=== PATIENT | male | born 1940 | race Caucasian/White ===

== ENCOUNTER → 2017-12-14 10:16 | Outpatient (CLI) | payer MEDICARE, OTHER, SELFPAY ==
--- NOTE | 2017-12-14 | DI.RAD.S_ITS ---
PROCEDURE: XR HUMERUS LT 2V INDICATIONS: LEFT ARM PAIN/MASS MID HUMERUS TECHNIQUE: 2 views of the humerus were acquired. COMPARISON: None. FINDINGS: Bones: No fractures or dislocations. No suspicious bony lesions. Osteoarthritic changes are noted in a.c. joint and glenohumeral joint. Soft tissues: No suspicious soft tissue calcifications. IMPRESSION: Left shoulder joint osteoarthritis. Otherwise unremarkable radiographic examination of left humerus. Dictated by: Marquis Taylor M.D. on 12/14/2017 at 10:38 Approved by: Marquis Taylor M.D. on 12/14/2017 at 10:43
== END ==
PROVIDERS: Family Provider Family Medicine; PCP Family Medicine; Visit Provider Family Medicine
DX: M19.012 Primary osteoarthritis, left shoulder (principal); M79.602 Pain in left arm
CPT/HCPCS: 73060

== ENCOUNTER → 2018-01-20 13:57 | Outpatient (CLI) | payer MEDICARE, OTHER, SELFPAY ==
--- NOTE | 2018-01-20 | DI.MRI.S_ITS ---
PROCEDURE: MR SHOULDER LT WO CON INDICATIONS: LEFT SHOULDER PAIN WITH DECREASED RANGE OF MOTION TECHNIQUE: Noncontrast oblique coronal T2 fast spin echo with fat saturation, oblique sagittal T1 spin echo and T2 fast spin echo with fat saturation, axial T1 spin echo and T2 fast spin echo with fat saturation through the shoulder. COMPARISON: None. FINDINGS: Image quality: Excellent. Rotator cuff: Full-thickness tear measuring 1.0 cm in AP dimension seen involving the anterior supraspinatus tendon, sagittal image 17 series 7. There is concomitant thickening and supraspinatus tendinopathy. The infraspinatus and teres minor tendons appear intact. There is mild subscapularis tendinopathy and low-grade articular surface fraying. No definite atrophy of the rotator cuff musculature Bones and bursae: No bone marrow contusions or fractures. Severe hypertrophic acromioclavicular joint degeneration. The acromion demonstrates conventional anatomy, without an os acromiale. Small joint effusion is present Capsule and soft tissues: Circumferential labral tear involving the superior, anterior and inferior segment is present although this could be chronic/degenerative in nature. The long head of the biceps tendon demonstrates intrasubstance signal change suggesting tendinopathy. The rotator interval appears normal, without fibrosis. The coracohumeral ligament is intact although there is partial obliteration of the subcoracoid fat. The superior glenohumeral ligament appears discontinuous suggestive of rupture. Thickening/sprain of the anterior band of the inferior glenohumeral ligament also noted. No definite avulsion or complete rupture seen. IMPRESSION: Full thickness anterior supraspinatus tear. Subscapularis tendinopathy, thickening and low-grade articular surface fraying. Superior glenohumeral ligament suspected to be ruptured, which in conjunction with the supraspinatus and subscapularis pathology raises the possibility of biceps brigid instability. Please correlate clinically. Long head biceps tendinopathy. Circumferential labral tear involving the superior, anterior and inferior segments although this could be chronic/degenerative. Please correlate clinically. Sprain of the anterior band of the inferior glenohumeral ligament. Dictated by: Dean Johns M.D. on 01/20/2018 at 15:01 Approved by: Dean Johns M.D. on 01/20/2018 at 15:36
== END ==
PROVIDERS: Family Provider Family Medicine; PCP Family Medicine; Visit Provider Family Medicine
DX: M25.512 Pain in left shoulder (principal); M75.102 Unspecified rotator cuff tear or rupture of left shoulder, not specified as traumatic; S43.491A Other sprain of right shoulder joint, initial encounter
CPT/HCPCS: 73221

== ENCOUNTER → 2018-12-12 13:42 | Outpatient (CLI) | payer MEDICARE, OTHER, SELFPAY ==
--- NOTE | 2018-12-12 15:00 | DIET.PN ---
DIABETES Nutrition Initial Assessment:? ASSESS:?? 78 yom referred for type 2 diabetes. Pt presents with . States he has had elevated BG for approx 2 yrs. He has had no prior diabetes education and does not have a meter. states he has constant fatigue. They recently stopped eating starches (pastas/breads) and have been including more brown rice, fruits and vegetables. They have cut out all pitted fruit and decreased wine consumption to 1 glass per evening. ? LABS: Per pt report:? A1c: 7.8 (11/24) 7.9 (07/25) eA ? MEDS:?? metformin 1000mg BID ? DIET: Per 24-hour recall:? B: bran flakes w/ milk, yogurt, fruit L: leftovers D: protein, vegetables ? Weight: 202# BMI: 28.68 ? Exercise:? cycles 2x/wk NUTRITION DX 1. Altered Nutrition related labs related to impaired glucose metabolism, lack of previous exposure to accurate nutrition information as evidenced by pt report, dx of diabetes, previous diet high in refined carbohydrates.? INTERVENTION(s): 1. Discussed pathophysiology of diabetes. Reviewed A1c and its correlation to blood glucose numbers. Discussed recommended BG ranges. 2. Discussed importance of self-monitoring, how often, and when to check. Provided demonstration on use of glucometer. Recommended pt check with insurance for monitor that is covered. Researched inexpensive monitor with strips to begin monitoring right away. 3. Reviewed hyper/hypoglycemia and treatment. 4. Reviewed safe disposal of equipment (strip/lancets/insulin needles). 5. Discussed impact of nutrition/diet on blood sugar control.? Discussed fed versus non-fed state.?? 6. Discussed the effect of carbohydrates/protein/fat on blood sugar control.? Stressed importance of consistent carbohydrate intake at each meal and provided instructions for recommended servings/portions of carbohydrates/protein per meal. Provided pt with educational material. 7. Reviewed carbohydrate counting and measuring carbohydrate content via serving sizes and reading nutrition labels.? Provided handouts.?? 8. Discussed the difference between simple versus complex carbohydrates and the effect of fiber on blood sugar control.? Discussed various methods to increase fiber content in diet. 9. Stressed importance of meal timing and not going >4-5 hours between meals. Encouraged adding protein to each meal to support glucose control. Provided list of protein foods. Discussed best protein options for heart health and to alleviate hunger. Patient agreeable. 10. Discussed healthy weight loss through diet and exercise to increase lean muscle mass.? Pt agreeable to exercising daily alternating cardiovascular and resistance training. Discussed frequency, intensity, and time of exercise. Goal for 30 min/day at least 5d/wk. MONITOR/EVALUATE: Anticipate good compliance.? Nutrition follow up schedule for 1 mo to review BG, weight, food record and discuss calorie/protein/fat goals.
== END ==
PROVIDERS: Visit Provider Student in an Organized Health Care Education/Training Program
DX: E11.9 Type 2 diabetes mellitus without complications (principal)
CPT/HCPCS: 97802

== ENCOUNTER → 2019-02-07 14:39 | Outpatient (CLI) | payer MEDICARE, OTHER, SELFPAY ==
--- NOTE | 2019-02-07 15:05 | DIET.PN ---
Dietary Progress Note Assessment: Mr. Echeverria was seen for his first follow up for type 2 diabetes. He has been monitoring his FBG daily which appear to be trending down since our first visit. He continues to make healthier choices and exercise several times each week. He is very enthusiastic today with recent blood glucose readings and weight loss and states he feels more energy than he has in a long time. He and his continue to find new substitutions to replace favorite dishes. He had new labs drawn this morning to discuss with provider next week. WT: 190 (in office) 187 (at home) UBW: >200 Labs: A1c: 7.8 (new labs done 02/07/19) [id number] (>150 x2) Nutrition Diagnosis: Altered nutrition related lab values r/t impaired glucose metabolism aeb DX Diabetes, previous diet high in refined CHO, lack of PA. Interventions: 1. Reviewed blood sugar log and implications/reasons for elevated/decreased blood sugar.? Pt with good understanding.? 2. Reviewed carbohydrate counting and importance of consistent carbohydrate intake.? 3. Reviewed meal intake and importance of balanced meals (dustin to prevent overeating).??? 4. Provided information on fat/protein intake and ways to limit saturated fat. 5. Discussed alcohol intake and effects on BG. EER: 2000 jax ; 100g pro; 50g fat Monitoring/Evaluations: F/U scheduled for 1mo to discuss new labs.
== END ==
PROVIDERS: PCP Student in an Organized Health Care Education/Training Program; Visit Provider Student in an Organized Health Care Education/Training Program
DX: E11.9 Type 2 diabetes mellitus without complications (principal)
CPT/HCPCS: 97803

== ENCOUNTER → 2019-03-21 09:43 | Outpatient (CLI) | payer MEDICARE, OTHER, SELFPAY ==
--- NOTE | 2019-03-21 10:13 | DIET.PN ---
Dietary Progress Note Assessment: Mr. Echeverria was seen for his 2nd nutrition follow up for type 2 diabetes. He presents with new labs and is excited to report a significant drop in his A1c. He states he continues to feel better and more energetic with his continued weight loss. He and his have adopted this new way of life is a very positive manner. He reports being able to attend parties recently (which he was avoiding before) with continued management of his new patterns and BG. He has not been exercising as much lately due to weather and personal conflicts, but agrees it is important for maintaining good glucose control and weight. WT: 184 lb UBW: >200 lb Labs: A1c: 6.6 (down from 7.8) Nutrition Diagnosis: Altered nutrition related lab values r/t impaired glucose metabolism aeb DX diabetes, previous diet high in refined CHO, lack of PA. Interventions: 1. Reviewed new labs. Congratulated on consistent lifestyle changes and motivation to continue to improve. 2. Discussed importance of exercise in continued glucose and weight management. Pt agrees to start exercising minimum of 3x/wk as soon as they are settled in their new home. 3. Pt is eager to discontinue metformin. Discussed the reasons for med management. Pt with understanding. Monitoring/Evaluations: Pt scheduled for follow up labs in May. Would like to wait to resume MNT if needed at that time.
== END ==
PROVIDERS: PCP Student in an Organized Health Care Education/Training Program; Visit Provider Student in an Organized Health Care Education/Training Program
DX: E11.9 Type 2 diabetes mellitus without complications (principal); Z79.84 Long term (current) use of oral hypoglycemic drugs; Z71.3 Dietary counseling and surveillance
CPT/HCPCS: 97803

== ENCOUNTER → 2023-04-21 08:22 | Outpatient (CLI) | payer MEDICARE, OTHER, SELFPAY ==
--- NOTE | 2023-04-21 | DI.MRI.S_ITS ---
PROCEDURE: MR LUMBAR SPINE WO CON INDICATIONS: LUMBAR DISC DISEASE/LUMBAR RADICULOPATHY TECHNIQUE: Noncontrast sagittal T1 spin echo and T2 fast echo, sagittal STIR, and T2 fast spin echo through the lumbar spine. In cases with scoliosis, additional coronal T2 fast spin echo may be performed. COMPARISON: [facility], MR, L-SPINE WITHOUT CONTRAST, 10/09/2010, 16:15. [facility], MR, L-SPINE WITHOUT CONTRAST, 03/26/2015, 9:43. FINDINGS: Image quality: Excellent. Alignment and Curvature: Mild dextroconvex scoliotic curvature is seen. There is mild grade 1 anterolisthesis seen at the L4-L5 level. Associated pars defects are not seen. Bone Marrow: Marrow is of normal overall signal. No acute vertebral body compression fractures. There is a stable anterior wedge deformity seen of L1, with 20-30% loss of height anteriorly. Spinal Cord: Conus medullaris terminates at the T12-L1 level. Visualized cord demonstrates normal signal and size. Paraspinous Soft Tissues: No paravertebral masses. There is a water signal cyst seen along the posterior aspect of the right kidney. T12-L1: The disc height is well-preserved. Loss of disc signal is seen at this level. No significant neural foraminal or central canal narrowing can be seen. No significant change from the prior. L1-L2: The disc height is well-preserved. Loss of disc signal is seen at this level. Moderate disc bulge is seen, which is eccentric to the left. There is a central/left disc protrusion. Mild facet joint hypertrophy is seen. There is [id number] left-sided and moderate right-sided neural foraminal narrowing. Moderate central canal narrowing is seen. These imaging findings have progressed compared to the prior study. L2-L3: The disc height is well-preserved. Loss of disc signal is seen at this level. Mild to moderate disc bulge is seen, which is eccentric to the right. Bridging anterior osteophytes are seen. Mild facet joint hypertrophy is seen. Mild bilateral neural foraminal narrowing is seen. Minimal central canal narrowing is seen. There is slight progression compared to 2015. L3-L4: The disc height is well-preserved. Loss of disc signal is seen at this level. Moderate disc bulge is seen, which is eccentric to the right side. Moderate facet joint hypertrophy is seen. There is moderate to severe bilateral neural foraminal narrowing seen, with an associated a degree of compression seen upon the exiting nerve roots. Moderate central canal narrowing is seen. These imaging findings have progressed compared to the prior study. L4-L5: At least moderate loss of disc height and disc signal can be seen. At least moderate disc bulge is seen. There is a superimposed central disc protrusion. At least moderate facet hypertrophy is seen at this level. There is moderate to severe bilateral neural foraminal narrowing seen, with an associated a degree of compression seen upon the exiting nerve roots. At least moderate central canal narrowing is seen. These imaging findings have progressed compared to the prior study. L5-S1: The disc height is well-preserved. Loss of disc signal is seen at this level. Mild disc bulge is seen, with a central disc protrusion. There is a focal annular fissure seen posteriorly. Mild facet joint hypertrophy is seen. No neural foraminal narrowing is seen. Minimal central canal narrowing is seen. There is slight progression of degenerative change compared to the prior. IMPRESSION: Multiple levels of lumbar spine degenerative change can be seen, which are progressed at several levels compared to 2015. Mild dextroconvex scoliotic curvature is seen. Additional findings: Stable remote L1 anterior wedge deformity Water signal right renal cyst Dictated by: Paul Urban M.D. on 04/21/2023 at 12:34 Approved by: Paul Urban M.D. on 04/21/2023 at 12:40
== END ==
PROVIDERS: PCP Family Medicine; Referring Provider Family Medicine; Visit Provider Family Medicine
DX: M47.26 Other spondylosis with radiculopathy, lumbar region (principal); M47.27 Other spondylosis with radiculopathy, lumbosacral region; M51.9 Unspecified thoracic, thoracolumbar and lumbosacral intervertebral disc disorder; M43.16 Spondylolisthesis, lumbar region; M43.8X6 Other specified deforming dorsopathies, lumbar region; M41.9 Scoliosis, unspecified; N28.1 Cyst of kidney, acquired
CPT/HCPCS: 72148

== ENCOUNTER → 2023-07-15 08:48 | Outpatient (CLI) | payer MEDICARE, OTHER, SELFPAY ==
--- NOTE | 2023-07-15 08:49 | DI.RAD.S_ITS ---
PROCEDURE: XR CHEST 2V INDICATIONS: cough TECHNIQUE: 2 views of the chest were acquired. COMPARISON: [facility], CHEST 1 VIEW, 04/22/2016, 15:49. [facility], CHEST 2 VIEW, 09/01/2016, 9:59. FINDINGS: Surgical changes and devices: Median sternotomy. Lungs and pleura: Lungs are clear, aside from right upper lobe airspace opacity.. No pleural effusions or pneumothorax. Mediastinum: Mediastinal contours are normal. Heart size is normal. Bones and chest wall: No suspicious bony abnormalities. Soft tissues appear unremarkable. IMPRESSION: Right upper lobe airspace opacity consistent with atelectasis versus aspiration or pneumonia. Dictated by: Chang BUTLER Interpreted: Rubio Flores MD on 07/15/2023 at 9:25 Transcribed by: [email or web address] on 07/15/2023 at 9:26 Approved by: Rubio Flores M.D. on 07/15/2023 at 17:06
== END ==
PROVIDERS: Family Provider Family Medicine; PCP Family Medicine; Referring Provider Nurse Practitioner Family; Visit Provider Nurse Practitioner Family
DX: R05.9 Cough, unspecified (principal)
CPT/HCPCS: 71046

== ENCOUNTER 2023-10-07 09:00 | Outpatient (RCR) | payer MEDICARE, OTHER, SELFPAY ==
--- NOTE | 2023-06-27 16:45 | PT.OIE ---
Current Diagnoses Low back pain, unspecified (06/27/23) Visit Care Team Role Provider Type Binh Canas MD Family Provider Physician Primary Care Provider Specialty: Family Practice Address: [address], [place], [address] Email: [email or web address] Aidan Chin MD Attending Provider Non-Staff Referring Provider Specialty: Neurosurgery Address: [address] [facility] [address], [place], [address] Email: Physical Therapy Initial Evaluation PT-OP-A Visit Information Start: 06/27/23 13:45 Freq: Status: Active Protocol: Document 06/27/23 13:46 NM (Rec: 06/27/23 17:22 NM [id number]) Out-Patient Physical Therapy Visit Information Visit Information Visit Type Initial Evaluation Visit Note KX after 19 visits Visit Start Time 13:47 Visit Stop Time 14:33 Visit Number 1 Evaluation Information Evaluation Date 06/27/23 Precautions Precautions Ant wedge deformity (L1), Anterolisthesis L4-L5, Hx of lumbar surgery PT-OP-B Current Condition Start: 06/27/23 13:45 Freq: Status: Active Protocol: Document 06/27/23 13:46 NM (Rec: 06/27/23 17:22 NM [id number]) Current Condition History of Current Condition Onset Date summer 2022 Current Complaints pain, decreased activity History of Current Condition Pt presents with low back pain . No known RONY. He has a hx of surgery for a pinched nerve he thinks left L3-5, a decade. Surgeon and pt to try conservative care. Pt is concerned that he has arthritis. The pain has worsened throughout 2022, with difficulty performing ADLs. He reports that his pain has significantly improved over the past 2 months but continues to exist. 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 He did have minimal back pain during summer, but it gradually worsened over the fall. Pt reports prn numbness /tingling L over the course of 10 years but none currently. Reports difficulty with sleeping after 6-7 hrs (total 8-10- sleeping on R side, pillow between knees), putting on shoes. He reports that he has been moving very gingerly to prevent. He has had episodic pain about 2 senior ago when shoveling snow, pain for about 2 months. Hx of tight hamstrings; no gym since covid Prior Treatments and Tests Previous PT prior to surgery MRI 04/2023: Ant wedge deformity (L1), Anterolisthesis L4-L5, Degenerative changes Prior Functional Status Baseline Function- ADL's Independent Baseline Function- Mobility Independent Baseline Function- Gait Walk >1 hr Baseline Function- Recreation/Hobbies Bikes miles Baseline Function- Other No difficulty with dressing Current Functional Impairments (Reported) Functional Limitations- ADL's Difficulty with putting on shoes Functional Limitations- Mobility/Gait Limited 1 hr max with gait; stand 1/2 hr before painful; painful sit>stand Functional Limitations- Recreation/ Does not participate due to Hobbies fear of pain Functional Limitations- Other sleeps on R side with pillow between knees for 6-7 hrs before wakes due to pain PT-OP-C Subjective Start: 06/27/23 13:45 Freq: Status: Active Protocol: Document 06/27/23 13:46 NM (Rec: 06/27/23 17:22 NM [id number]) OP-PT Subjective Patient Comments Patient Comments see hx above for pt report Patient Questionnaires Oswestry Low Back Index Oswestry Score 18/100 OP-PT Pain Assessment Pain Assessment Grid Paper Pain Assessment Grid Completed Yes Location lumbar spine Pain Location Details B lower lumbar, sacrum Intensity 2 Scale Used Numeric (0 - 10) Description Dull,Sharp,Tightness Description- Other worse pain is 6/10; prn sharp pain with aggravation Frequency Daily Radiating Location none Pain Aggravating Factors ADL's,Activity,Standing, Bending Other Pain Aggravating Factors sit>stand, standing 1/2 hr Pain Alleviating Factors Cold,Medication,Lying Supine, Exercise Other Pain Alleviating Factors walking (an hour) Pain Behaviors Pain Behaviors Holding Area PT-OP-E Functional Tests Start: 06/27/23 13:45 Freq: Status: Active Protocol: Document 06/27/23 13:46 NM (Rec: 06/27/23 17:22 NM [id number]) Functional Tests 30 Second Sit to Stand Test Score 14 Comments reports no pain with transition to stand, increased flexed trunk PT-OP-F Manual Assessment Start: 06/27/23 13:45 Freq: Status: Active Protocol: Document 06/27/23 13:46 NM (Rec: 06/27/23 17:22 NM [id number]) Manual Assessments Soft Tissue Assessment Soft Tissue Mobility Assessment Bilateral hamstring tightness. Increased tone of lumbar paraspinals, L>R Joint Mobility Assessment Joint Mobility Assessment Hypomobility of thoracic and lumbar spine with P-A springing of spinous processes . Decreased hip ER/IR bilaterally in sitting and supine. Unable to placed L ankle over R knee (e.g. to put on shoes) PT-OP-G Mobility & Gait Start: 06/27/23 13:45 Freq: Status: Active Protocol: Document 06/27/23 13:46 NM (Rec: 06/27/23 17:22 NM [id number]) OP Gait Assessment Gait Gait Assistance Required: Independent Distance (Feet) 200 Assistive Devices Assistive Device None Gait Deviations General Gait Pattern Antalgic,Flexed Trunk,Wide Based Gait Factors Limiting Gait Function Factors Limiting Gait Function Decreased Sensation,Decreased Strength,Poor Balance Comments Gait Comments Decreased trunk rotation with gait, B external rotation of feet, flexed trunk posture; wider FREDY PT-OP-H Neuro Start: 06/27/23 13:45 Freq: Status: Active Protocol: Document 06/27/23 13:46 NM (Rec: 06/27/23 17:22 NM [id number]) Sensation Evaluation Gross Sensation Gross Sensation Left LE Impaired,Right LE Impaired Comments Summary Comments Decreased light touch sensation along dorsal and plantar surfaces of feet; other BLE dermatomes intact PT-OP-J Posture/Palpation/Skin Start: 06/27/23 13:45 Freq: Status: Active Protocol: Document 06/27/23 13:46 NM (Rec: 06/27/23 17:22 NM [id number]) Posture Evaluation Position Standing Evaluation View posterior, lateral Head/C-Spine Posture Forward Head L-Spine Posture Fixed Scoliosis on (R) Shoulder Posture (L) Rounded,(R) Rounded,(L) Elevated Arm Posture (L) Internally Rotated,(R) Internally Rotated Pelvis Posture Anteriorly Tilted,(R) Iliac Crest Superior Weight Distribution Balanced Hip Posture (L) Externally Rotated,(R) Externally Rotated Knee Posture (L) Genu Varus,(R) Genu Varus Patellar Posture (L) Superior,(R) Superior Ankle/Foot Posture (L) Neutral,(R) Neutral Comments Posture Comments Dextroscoliosis lumbar spine Palpation Assessment Location lumbar spine Palpation Location paraspinals, glutes, QL, L1-L5 spinous processes, PSIS, SIJ Palpation Findings Soft Tissue Tightness Palpation Details Tenderness along B PSIS, L>R. No tenderness along spinous or transverse processes of L spine. No tenderness of B SIJ. No tenderness of glutes, hip external rotators, greater trochanter, proximal hamstrings. Increased soft tissue tightness of lumbar paraspinals, QL PT-OP-K Range of Motion Start: 06/27/23 13:45 Freq: Status: Active Protocol: Document 06/27/23 13:46 NM (Rec: 06/27/23 17:22 NM [id number]) Lumbar Spine Range of Motion Lumbar Spine Active Percentage Testing Position Standing Flexion 50 Extension 50 Rotation Left 3 Rotation Right 3 Lateral Flexion Left 50 Lateral Flexion Right 50 ROM Limitations Soft Tissue Tightness,Pain Comments Reports minimal pain/pulling with spinal extension. No pain with rotation or flexion. Demos decreased hamstring length with flexion (to knees) and lateral flexion (to mid lateral thigh) Hip Goniometric Range of Motion Hip right Flexion w/Knee Flexed 110 Straight Leg Raise 80 Internal Rotation 15 External Rotation 25 Comments Hamstring length: 140 deg left Testing Position Supine Flexion w/Knee Flexed 112 Straight Leg Raise 70 Internal Rotation 20 External Rotation 15 Comments Hamstring length: 150 deg; pt reports feels more restricted PT-OP-L Special Tests Start: 06/27/23 13:45 Freq: Status: Active Protocol: Document 06/27/23 13:46 NM (Rec: 06/27/23 17:22 NM [id number]) Special Tests Lumbar Spine Special Tests SIJ Thigh thrust Test Results - SIJ Anterior gapping Test Results - Distraction Test Results + Comments reports relief Pierre/Quadrant Test Results - Comments no local or referred pain with 3D testing Straight Leg Raise Test Results + Slump Test Results + Comments improved with head ext Hip Special Tests NGA Test Results - Comments Unable to perform fully due to ROM limitations on LLE FADIR Test Results - PT-OP-M Strength Start: 06/27/23 13:45 Freq: Status: Active Protocol: Document 06/27/23 13:46 NM (Rec: 06/27/23 17:22 NM [id number]) Trunk Strength Trunk Manual Muscle Testing Testing Position Sitting Flexion 4 Good Extension 4 Good Rotation Left 3+ Fair+ Rotation Right 3+ Fair+ Lateral Flexion Left 3+ Fair+ Lateral Flexion Right 3+ Fair+ Comments No pain with resisted testing. Decreased ability to stabilize against frontal plane resistance Hip Strength Hip Manual Muscle Testing Right Flexion (L2) 4 Good Extension (S1) 4- Good- Abduction 4 Good Adduction 4 Good External Rotation 4- Good- Internal Rotation 4- Good- Comments Low back pain only with resisted extension Left Flexion (L2) 4 Good Extension (S1) 3+ Fair+ Abduction 4 Good Adduction 4 Good External Rotation 4- Good- Internal Rotation 4- Good- Comments Low back pain only with resisted extension Knee Strength Knee Manual Muscle Testing Right Flexion (S2) 4 Good Extension (L3) 4 Good Left Flexion (S2) 4 Good Extension (L3) 4 Good Ankle/Foot Strength Ankle and Foot Manual Muscle Testing Right Dorsiflexion (L4) 4 Good Plantarflexion (S1) 4 Good Left Dorsiflexion (L4) 4 Good Plantarflexion (S1) 4 Good PT-OP-Q Treatments Start: 06/27/23 13:45 Freq: Status: Active Protocol: Document 06/27/23 13:46 NM (Rec: 06/27/23 17:22 NM [id number]) Self-Care/Home Management Treatment Education Patient Education Body Mechanics,Home Exercise Program,Joint Protection,Pain Management,Posture Other Education 8 minutes: Educated on sleep position and posture to maintain open facet joints for pain reduction(no handout given, pt demonstrating while PT educating) with spine models, arthrokinematics. Encouraged to try sleeping on back with legs elevated for spinal distraction after pt can no longer sleep in sidelying due to discomfort in lumbar spine. PT and pt discussed exam findings, POC, modalities for pain relief prn . Educated pt on daily ambulation program x30 min/ea day up to pt tolerance to initiate activity; will initiate HEP next session, but educated on purpose and importance of HEP. Initiated discussion on safety and limiting fall risk during daily walks due to pt report of poor balance. Pt verbalizing agreement PT-OP-T Assessment and Plan Start: 06/27/23 13:45 Freq: Status: Active Protocol: Document 06/27/23 13:46 NM (Rec: 06/27/23 17:22 NM [id number]) Physical Therapy Assessment Rehab Potential Rehabilitation Potential Good Evaluation Complexity Number of Personal Factors/Comorbidities 1-2 Number of Body Systems Impaired 1-2 Clinical Presentation at Evaluation Stable Impairments Impairments Activity Tolerance,Balance, Functional Activities, Functional Mobility,Gait,Pain, Posture,ROM,Sensation,Soft Tissue Mobility,Strength Goals Five Impairment activity tolerance Impairment Pt w/o HEP Short Term Goal (STG) Pt will report compliance with HEP 2-3/wk in order to demonstrate independence and management of symptoms for return to activity STG Duration 4 weeks Jail Goal (LTG) Pt will report compliance with HEP 3x/wk to demonstrate ability to participate in independent exercise for maintenance program after discharge from PT LTG Duration 8 weeks Four Impairment AROM, ADLs Impairment unable to put on L shoe [employer] Goal (LTG) Pt will report that he is able to put on his L shoe in sitting without compensation or reports of low back pain in order to demonstrate improved ability to participate in dressing ADLs LTG Duration 8 weeks Three Impairment hip IR Impairment R hip IR 15 deg Short Term Goal (STG) Pt will increase R hip IR to at least 20 deg in order to demonstrate improved hip mobility STG Duration 4 weeks Jail Goal (LTG) Pt will increase R hip IR to at least 25 deg in order to demonstrate improved hip mobility LTG Duration 8 weeks Two Impairment hip ER Impairment L ER AROM 15 deg Short Term Goal (STG) Pt will improve L ER AROM to at least 20 deg in order to demonstrate increased hip mobility to put on his shoes STG Duration 4 weeks Jail Goal (LTG) Pt will improve L ER AROM to at least 25 deg in order to demonstrate increased hip mobility to put on his shoes LTG Duration 8 weeks One Impairment hamstring length Impairment R hamstring length 140 deg, L hamstring length 150 deg Short Term Goal (STG) Pt will improve B hamstring length by at least 5 deg ea for improved TKE during gait and to improve overall spinal/ hip mobility for improved activity tolerance STG Duration 4 weeks Jail Goal (LTG) Pt will improve B hamstring length by at least 10 deg ea for improved TKE during gait and to improve overall spinal/ hip mobility for improved activity tolerance LTG Duration 8 weeks Assessment Summary Assessment Pt is a 82 y.o. male presenting with lumbar spine pain beginning in fall 2022 and gradually worsening. Pt reports improvement in pain levels since 2023 began, but reports that his activity levels are significantly limited due to fear of movement and pain. 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 He is currently limited in the amount that he is able to ambulate and stand before pain. Pt has decreased lumbar spine AROM in all directions, although only reports minimal pain with extension. He demos decreased trunk strength with difficulty stabilizing against resistance, but without pain. He has limitations in bilateral hip ER/IR AROM and PROM, in addition to decreased bilateral hamstring length which likely factors into his decreased AROM. Due to soft tissue and mobility limitations, pt has difficulty with performing dressing ADLs . Pt is positive for slump and straight leg raise tests, although does not have any current symptoms of nerve pain ; likely related to hamstring length. No facet provocation with 3D testing. Reports improvement in symptoms with lumbar distraction. Pt demonstrates increased soft tissue restrictions of his B paraspinals and has muscle guarding. 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 PT educated pt on sleep position in supine with BLE elevated as pt finds distraction helpful; further educated on exam findings, POC , and initiation of daily ambulation program to increase activity levels. Pt verbalizes understanding. Pt would benefit from progressive BLE and trunk resistance training, gait and balance training, in addition to core stabilization and flexibility/ mobility and an exercise program in order to decrease pain symptoms, improve activity tolerance, and QOL. Physical Therapy Plan Frequency and Duration Frequency of Treatment 2x/Week Duration of treatment (weeks) 8 Plan of Care Start Date 06/27/23 Plan of Care End Date 08/26/23 Therapeutic Interventions Therapeutic Interventions Aquatic Therapy,Balance Training,Coordination Training ,Gait Training,Home Exercise Program,Joint Mobilizations, Manual Therapy,Neuromuscular Re-education,Orthotic/ Prosthetic Management,Patient/ Caregiver Education,Self-Care/ Home Management,Sensory Integration,Soft Tissue Mobilization,Taping, Therapeutic Activities, Therapeutic Exercises Modalities Biofeedback,Cold Pack/Ice Massage,Electric Stimulation, Hot Packs,Traction- Mechanical ,Ultrasound,Vasopneumatic Devices Other Therapeutic Interventions Manual traction, self traction Next Visit Focus/Plan Next Note Type Treatment Note Next Visit Plan lumbar spine/hip stretching ( knee to chest, ER, IR, HS), initiated mobility (uvaldo pose with IR bias, lateral tilts) strengthening Initiate daily foot checks, est HEP/daily exercise and walking program Precautions: no excessive spinal flexion due to anterolisthesis, grade III mob max, limit end range ext
--- NOTE | 2023-06-29 16:46 | PT.OTN ---
Current Diagnoses Low back pain, unspecified (06/29/23) Unspecified abnormalities of gait and mobility (06/29/23) Weakness (06/29/23) Physical Therapy Treatment Note PT-OP-A Visit Information Start: 06/27/23 13:45 Freq: Status: Active Protocol: Document 06/29/23 13:02 NM (Rec: 06/29/23 13:46 NM [id number]) Out-Patient Physical Therapy Visit Information Visit Information Visit Type Treatment Note Visit Note KX after 19 visits Visit Start Time 13:02 Visit Stop Time 13:45 Visit Number 2 Evaluation Information Evaluation Date 06/27/23 PT-OP-B Current Condition Start: 06/27/23 13:45 Freq: Status: Active Protocol: Document 06/27/23 13:46 NM (Rec: 06/27/23 17:22 NM [id number]) Current Condition History of Current Condition Onset Date summer 2022 Current Complaints pain, decreased activity History of Current Condition Pt presents with low back pain . No known RONY. He has a hx of surgery for a pinched nerve he thinks left L3-5, a decade. Surgeon and pt to try conservative care. Pt is concerned that he has arthritis. The pain has worsened throughout 2022, with difficulty performing ADLs. He reports that his pain has significantly improved over the past 2 months but continues to exist. 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 He did have minimal back pain during summer, but it gradually worsened over the fall. Pt reports prn numbness /tingling L over the course of 10 years but none currently. Reports difficulty with sleeping after 6-7 hrs (total 8-10- sleeping on R side, pillow between knees), putting on shoes. He reports that he has been moving very gingerly to prevent. He has had episodic pain about 2 senior ago when shoveling snow, pain for about 2 months. Hx of tight hamstrings; no gym since covid Prior Treatments and Tests Previous PT prior to surgery MRI 04/2023: Ant wedge deformity (L1), Anterolisthesis L4-L5, Degenerative changes Prior Functional Status Baseline Function- ADL's Independent Baseline Function- Mobility Independent Baseline Function- Gait Walk >1 hr Baseline Function- Recreation/Hobbies Bikes miles Baseline Function- Other No difficulty with dressing Current Functional Impairments (Reported) Functional Limitations- ADL's Difficulty with putting on shoes Functional Limitations- Mobility/Gait Limited 1 hr max with gait; stand 1/2 hr before painful; painful sit>stand Functional Limitations- Recreation/ Does not participate due to Hobbies fear of pain Functional Limitations- Other sleeps on R side with pillow between knees for 6-7 hrs before wakes due to pain PT-OP-C Subjective Start: 06/27/23 13:45 Freq: Status: Active Protocol: Document 06/29/23 13:02 NM (Rec: 06/29/23 13:50 NM [id number]) OP-PT Subjective Patient Comments Patient Comments Reports no change from evaluation. States he has low back tightness with 2/10 pain. Walked for 1 hr yesterday and 1.5 hr today. PT-OP-E Functional Tests Start: 06/27/23 13:45 Freq: Status: Active Protocol: Document 06/27/23 13:46 NM (Rec: 06/27/23 17:22 NM [id number]) Functional Tests 30 Second Sit to Stand Test Score 14 Comments reports no pain with transition to stand, increased flexed trunk PT-OP-F Manual Assessment Start: 06/27/23 13:45 Freq: Status: Active Protocol: Document 06/27/23 13:46 NM (Rec: 06/27/23 17:22 NM [id number]) Manual Assessments Soft Tissue Assessment Soft Tissue Mobility Assessment Bilateral hamstring tightness. Increased tone of lumbar paraspinals, L>R Joint Mobility Assessment Joint Mobility Assessment Hypomobility of thoracic and lumbar spine with P-A springing of spinous processes . Decreased hip ER/IR bilaterally in sitting and supine. Unable to placed L ankle over R knee (e.g. to put on shoes) PT-OP-G Mobility & Gait Start: 06/27/23 13:45 Freq: Status: Active Protocol: Document 06/27/23 13:46 NM (Rec: 06/27/23 17:22 NM [id number]) OP Gait Assessment Gait Gait Assistance Required: Independent Distance (Feet) 200 Assistive Devices Assistive Device None Gait Deviations General Gait Pattern Antalgic,Flexed Trunk,Wide Based Gait Factors Limiting Gait Function Factors Limiting Gait Function Decreased Sensation,Decreased Strength,Poor Balance Comments Gait Comments Decreased trunk rotation with gait, B external rotation of feet, flexed trunk posture; wider FREDY PT-OP-H Neuro Start: 06/27/23 13:45 Freq: Status: Active Protocol: Document 06/27/23 13:46 NM (Rec: 06/27/23 17:22 NM [id number]) Sensation Evaluation Gross Sensation Gross Sensation Left LE Impaired,Right LE Impaired Comments Summary Comments Decreased light touch sensation along dorsal and plantar surfaces of feet; other BLE dermatomes intact PT-OP-J Posture/Palpation/Skin Start: 06/27/23 13:45 Freq: Status: Active Protocol: Document 06/27/23 13:46 NM (Rec: 06/27/23 17:22 NM [id number]) Posture Evaluation Position Standing Evaluation View posterior, lateral Head/C-Spine Posture Forward Head L-Spine Posture Fixed Scoliosis on (R) Shoulder Posture (L) Rounded,(R) Rounded,(L) Elevated Arm Posture (L) Internally Rotated,(R) Internally Rotated Pelvis Posture Anteriorly Tilted,(R) Iliac Crest Superior Weight Distribution Balanced Hip Posture (L) Externally Rotated,(R) Externally Rotated Knee Posture (L) Genu Varus,(R) Genu Varus Patellar Posture (L) Superior,(R) Superior Ankle/Foot Posture (L) Neutral,(R) Neutral Comments Posture Comments Dextroscoliosis lumbar spine Palpation Assessment Location lumbar spine Palpation Location paraspinals, glutes, QL, L1-L5 spinous processes, PSIS, SIJ Palpation Findings Soft Tissue Tightness Palpation Details Tenderness along B PSIS, L>R. No tenderness along spinous or transverse processes of L spine. No tenderness of B SIJ. No tenderness of glutes, hip external rotators, greater trochanter, proximal hamstrings. Increased soft tissue tightness of lumbar paraspinals, QL PT-OP-K Range of Motion Start: 06/27/23 13:45 Freq: Status: Active Protocol: Document 06/27/23 13:46 NM (Rec: 06/27/23 17:22 NM [id number]) Lumbar Spine Range of Motion Lumbar Spine Active Percentage Testing Position Standing Flexion 50 Extension 50 Rotation Left 3 Rotation Right 3 Lateral Flexion Left 50 Lateral Flexion Right 50 ROM Limitations Soft Tissue Tightness,Pain Comments Reports minimal pain/pulling with spinal extension. No pain with rotation or flexion. Demos decreased hamstring length with flexion (to knees) and lateral flexion (to mid lateral thigh) Hip Goniometric Range of Motion Hip right Flexion w/Knee Flexed 110 Straight Leg Raise 80 Internal Rotation 15 External Rotation 25 Comments Hamstring length: 140 deg left Testing Position Supine Flexion w/Knee Flexed 112 Straight Leg Raise 70 Internal Rotation 20 External Rotation 15 Comments Hamstring length: 150 deg; pt reports feels more restricted PT-OP-L Special Tests Start: 06/27/23 13:45 Freq: Status: Active Protocol: Document 06/27/23 13:46 NM (Rec: 06/27/23 17:22 NM [id number]) Special Tests Lumbar Spine Special Tests SIJ Thigh thrust Test Results - SIJ Anterior gapping Test Results - Distraction Test Results + Comments reports relief Pierre/Quadrant Test Results - Comments no local or referred pain with 3D testing Straight Leg Raise Test Results + Slump Test Results + Comments improved with head ext Hip Special Tests NGA Test Results - Comments Unable to perform fully due to ROM limitations on LLE FADIR Test Results - PT-OP-M Strength Start: 06/27/23 13:45 Freq: Status: Active Protocol: Document 06/27/23 13:46 NM (Rec: 06/27/23 17:22 NM [id number]) Trunk Strength Trunk Manual Muscle Testing Testing Position Sitting Flexion 4 Good Extension 4 Good Rotation Left 3+ Fair+ Rotation Right 3+ Fair+ Lateral Flexion Left 3+ Fair+ Lateral Flexion Right 3+ Fair+ Comments No pain with resisted testing. Decreased ability to stabilize against frontal plane resistance Hip Strength Hip Manual Muscle Testing Right Flexion (L2) 4 Good Extension (S1) 4- Good- Abduction 4 Good Adduction 4 Good External Rotation 4- Good- Internal Rotation 4- Good- Comments Low back pain only with resisted extension Left Flexion (L2) 4 Good Extension (S1) 3+ Fair+ Abduction 4 Good Adduction 4 Good External Rotation 4- Good- Internal Rotation 4- Good- Comments Low back pain only with resisted extension Knee Strength Knee Manual Muscle Testing Right Flexion (S2) 4 Good Extension (L3) 4 Good Left Flexion (S2) 4 Good Extension (L3) 4 Good Ankle/Foot Strength Ankle and Foot Manual Muscle Testing Right Dorsiflexion (L4) 4 Good Plantarflexion (S1) 4 Good Left Dorsiflexion (L4) 4 Good Plantarflexion (S1) 4 Good PT-OP-Q Treatments Start: 06/27/23 13:45 Freq: Status: Active Protocol: Document 06/29/23 13:02 NM (Rec: 06/29/23 13:46 NM [id number]) Therapeutic Exercises Supine Exercises posterior pelvic tilt Side bilateral Reps/Minutes 1x10 Comments cued for return to neutral spine vs ant tilt TA activation Supine Exercise Name 1. abdominal draw in (HEP), 2. B july lift/lower, 3. july single leg Equipment Used PT tactile cues at core, verbal cues to cough and mimic contraction Reps/Minutes 1. 1x10 with brief hold, 2. 1x10 with brief sec hold, 3. 1x5 ea w 1 hold Comments cued for breathing, draw up/in , control during motion, reports no pain sciatic nerve glide Supine Exercise Name with dynamic hamstring stretch (HEP nerve glide) Side bilateral Reps/Minutes 1x10 with 10 hold Comments tingling RLE, but decreased with knee flex/ext dynamic piriformis stretch Supine Exercise Name 1. figure 4 with knee bent ( not to chest)- HEP, 2. hip IR stretch Side bilateral Reps/Minutes 2x30 ea Comments reports tightness in back and hip ERs; cued for form knee to chest Supine Exercise Name lumbar spine stretch Side bilateral Reps/Minutes 1x60 Comments reports good lumbar spine stretch, no pain Prone Exercises child's pose Prone Exercise Name trialed with lateral flexion for paraspinal stretch Side bilateral Comments reports does not feel stretch, so trialed in standing Standing Exercises lateral flexion paraspinal stretch Standing Exercise Name trialed in standing Side bilateral Equipment Used hand on wall, leg cross behind Reps/Minutes 1x60 ea Comments cued for form; reports stretch but not pain Other Exercises soft tissue mobilization Other Exercise Name paraspinals, QL; added to HEP Side bilateral Reps/Minutes 2 ea side Comments reports feels good Therapeutic Activity Therapeutic Activity hip hinge Name body mechanics training Reps/Minutes 8 minutes Comments Educated on hip hinge in sitting position. Pt self tactile cues with hands on ASIS for hip hinge, cued bring fingers to femurs. PT initially providing manual cues at hips, then verbal cues only for form, scapular retraction, and abdominal bracing. Cued for slower, controlled motion to eliminate initiation using only lumbar spine Trialed in standing but did not progress to standing due to difficulty with coordinating hip hinge Self-Care/Home Management Treatment Education Patient Education Home Exercise Program,Pain Management Other Education 5 minutes: Educated on heat with soft tissue mobilization for pain relief, difference between nerve and muscle tension with model (e.g. stretch vs mobilize). Initiated HEP and educated on purpose of HEP. HEP: TA activation, figure 4 stretch, sciatic nerve glide, lumbar paraspinal soft tissue mobilization PT-OP-T Assessment and Plan Start: 06/27/23 13:45 Freq: Status: Active Protocol: Document 06/29/23 13:02 NM (Rec: 06/29/23 13:46 NM [id number]) Physical Therapy Assessment Goals Five Impairment activity tolerance Impairment Pt w/o HEP Short Term Goal (STG) Pt will report compliance with HEP 2-3/wk in order to demonstrate independence and management of symptoms for return to activity STG Duration 4 weeks Half-Way Goal (LTG) Pt will report compliance with HEP 3x/wk to demonstrate ability to participate in independent exercise for maintenance program after discharge from PT LTG Duration 8 weeks Four Impairment AROM, ADLs Impairment unable to put on L shoe Half-Way Goal (LTG) Pt will report that he is able to put on his L shoe in sitting without compensation or reports of low back pain in order to demonstrate improved ability to participate in dressing ADLs LTG Duration 8 weeks Three Impairment hip IR Impairment R hip IR 15 deg Short Term Goal (STG) Pt will increase R hip IR to at least 20 deg in order to demonstrate improved hip mobility STG Duration 4 weeks Half-Way Goal (LTG) Pt will increase R hip IR to at least 25 deg in order to demonstrate improved hip mobility LTG Duration 8 weeks Two Impairment hip ER Impairment L ER AROM 15 deg Short Term Goal (STG) Pt will improve L ER AROM to at least 20 deg in order to demonstrate increased hip mobility to put on his shoes STG Duration 4 weeks Half-Way Goal (LTG) Pt will improve L ER AROM to at least 25 deg in order to demonstrate increased hip mobility to put on his shoes LTG Duration 8 weeks One Impairment hamstring length Impairment R hamstring length 140 deg, L hamstring length 150 deg Short Term Goal (STG) Pt will improve B hamstring length by at least 5 deg ea for improved TKE during gait and to improve overall spinal/ hip mobility for improved activity tolerance STG Duration 4 weeks Hem Marker Goal (LTG) Pt will improve B hamstring length by at least 10 deg ea for improved TKE during gait and to improve overall spinal/ hip mobility for improved activity tolerance LTG Duration 8 weeks Assessment Summary Assessment Pt tolerated well without any increased pain. Initiated hip and lumbar spine stretches to promote improved flexibility and decrease soft tissue restrictions. Pt has limited hip mobility on LLE dustin into ER, so challenged with figure 4 stretch. PT educated pt on hip hinge as part of body mechanics training and initiated in session in seated ; unable to progress to standing as pt has difficulty coordinating. PT provided verbal and tactile cues to assist pt in correct mechanics ; will re-trial in future sessions. Initiated in sciatic nerve mobilization with dynamic hamstring stretch to decrease tingling sensation in LLE; pt reports improvement in symptoms post-mobilization. PT educated pt on difference between muscle and nerve tension. Initiated abdominal drawing in maneuver and TA activation with marching to begin deep core stabilization. PT provided tactile and verbal cues for execution and breathing; able to coordinate with difficulty but would benefit from further review in future sessions. Educated on modalities for pain relief ( heat) and soft tissue mobilization. Pt would benefit from skilled PT for further hip and spine mobility, stabilization/strengthening, and body mechanics training to decrease pain symptoms and improve QOL. Physical Therapy Plan Frequency and Duration Frequency of Treatment 2x/Week Duration of treatment (weeks) 8 Plan of Care Start Date 06/27/23 Plan of Care End Date 08/26/23 Therapeutic Interventions Therapeutic Interventions Aquatic Therapy,Balance Training,Coordination Training ,Gait Training,Home Exercise Program,Joint Mobilizations, Manual Therapy,Neuromuscular Re-education,Orthotic/ Prosthetic Management,Patient/ Caregiver Education,Self-Care/ Home Management,Sensory Integration,Soft Tissue Mobilization,Taping, Therapeutic Activities, Therapeutic Exercises Modalities Biofeedback,Cold Pack/Ice Massage,Electric Stimulation, Hot Packs,Traction- Mechanical ,Ultrasound,Vasopneumatic Devices Other Therapeutic Interventions Manual traction, self traction Next Visit Focus/Plan Next Note Type Treatment Note Next Visit Plan Next session: manual tx to LS paraspinals, glutes; check tolerance to stretches, HEP, STM Continue lumbar spine/hip stretching (knee to chest, ER, IR, HS), initiated mobility ( uvlado pose with IR bias, lateral tilts) strengthening Initiate daily foot checks, est HEP/daily exercise and walking program Precautions: no excessive spinal flexion due to anterolisthesis, grade III mob max, limit end range ext
--- NOTE | 2023-07-04 14:36 | PT.OTN ---
Current Diagnoses Low back pain, unspecified (07/04/23) Unspecified abnormalities of gait and mobility (07/04/23) Weakness (07/04/23) Physical Therapy Treatment Note PT-OP-A Visit Information Start: 06/27/23 13:45 Freq: Status: Active Protocol: Document 07/04/23 13:56 SP (Rec: 07/04/23 14:42 SP [id number]) Out-Patient Physical Therapy Visit Information Visit Information Visit Type Treatment Note Visit Note KX after 19 visits Visit Start Time 13:56 Visit Stop Time 14:36 Visit Number 3 Number of ART MODEL Visits 1 Evaluation Information Evaluation Date 06/27/23 Precautions Precautions Ant wedge deformity (L1), Anterolisthesis L4-L5, Hx of lumbar surgery PT-OP-B Current Condition Start: 06/27/23 13:45 Freq: Status: Active Protocol: Document 06/27/23 13:46 NM (Rec: 06/27/23 17:22 NM [id number]) Current Condition History of Current Condition Onset Date summer 2022 Current Complaints pain, decreased activity History of Current Condition Pt presents with low back pain . No known RONY. He has a hx of surgery for a pinched nerve he thinks left L3-5, a decade. Surgeon and pt to try conservative care. Pt is concerned that he has arthritis. The pain has worsened throughout 2022, with difficulty performing ADLs. He reports that his pain has significantly improved over the past 2 months but continues to exist. 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 He did have minimal back pain during summer, but it gradually worsened over the fall. Pt reports prn numbness /tingling L over the course of 10 years but none currently. Reports difficulty with sleeping after 6-7 hrs (total 8-10- sleeping on R side, pillow between knees), putting on shoes. He reports that he has been moving very gingerly to prevent. He has had episodic pain about 2 senior ago when shoveling snow, pain for about 2 months. Hx of tight hamstrings; no gym since covid Prior Treatments and Tests Previous PT prior to surgery MRI 04/2023: Ant wedge deformity (L1), Anterolisthesis L4-L5, Degenerative changes Prior Functional Status Baseline Function- ADL's Independent Baseline Function- Mobility Independent Baseline Function- Gait Walk >1 hr Baseline Function- Recreation/Hobbies Bikes miles Baseline Function- Other No difficulty with dressing Current Functional Impairments (Reported) Functional Limitations- ADL's Difficulty with putting on shoes Functional Limitations- Mobility/Gait Limited 1 hr max with gait; stand 1/2 hr before painful; painful sit>stand Functional Limitations- Recreation/ Does not participate due to Hobbies fear of pain Functional Limitations- Other sleeps on R side with pillow between knees for 6-7 hrs before wakes due to pain PT-OP-C Subjective Start: 06/27/23 13:45 Freq: Status: Active Protocol: Document 07/04/23 13:56 SP (Rec: 07/04/23 14:42 SP [id number]) OP-PT Subjective Patient Comments Patient Comments Pt reports seeing improvement, compliant with HEP. CAn put shoes and socks on now without pain, couldn't do before PT. Walks about 1 hr on [employer] trails uneven incline/decline some surfaces without trek poles. Still having soreness in R gluteal region. PT-OP-E Functional Tests Start: 06/27/23 13:45 Freq: Status: Active Protocol: Document 06/27/23 13:46 NM (Rec: 06/27/23 17:22 NM [id number]) Functional Tests 30 Second Sit to Stand Test Score 14 Comments reports no pain with transition to stand, increased flexed trunk PT-OP-F Manual Assessment Start: 06/27/23 13:45 Freq: Status: Active Protocol: Document 06/27/23 13:46 NM (Rec: 06/27/23 17:22 NM [id number]) Manual Assessments Soft Tissue Assessment Soft Tissue Mobility Assessment Bilateral hamstring tightness. Increased tone of lumbar paraspinals, L>R Joint Mobility Assessment Joint Mobility Assessment Hypomobility of thoracic and lumbar spine with P-A springing of spinous processes . Decreased hip ER/IR bilaterally in sitting and supine. Unable to placed L ankle over R knee (e.g. to put on shoes) PT-OP-G Mobility & Gait Start: 06/27/23 13:45 Freq: Status: Active Protocol: Document 06/27/23 13:46 NM (Rec: 06/27/23 17:22 NM [id number]) OP Gait Assessment Gait Gait Assistance Required: Independent Distance (Feet) 200 Assistive Devices Assistive Device None Gait Deviations General Gait Pattern Antalgic,Flexed Trunk,Wide Based Gait Factors Limiting Gait Function Factors Limiting Gait Function Decreased Sensation,Decreased Strength,Poor Balance Comments Gait Comments Decreased trunk rotation with gait, B external rotation of feet, flexed trunk posture; wider FREDY PT-OP-H Neuro Start: 06/27/23 13:45 Freq: Status: Active Protocol: Document 06/27/23 13:46 NM (Rec: 06/27/23 17:22 NM [id number]) Sensation Evaluation Gross Sensation Gross Sensation Left LE Impaired,Right LE Impaired Comments Summary Comments Decreased light touch sensation along dorsal and plantar surfaces of feet; other BLE dermatomes intact PT-OP-J Posture/Palpation/Skin Start: 06/27/23 13:45 Freq: Status: Active Protocol: Document 06/27/23 13:46 NM (Rec: 06/27/23 17:22 NM [id number]) Posture Evaluation Position Standing Evaluation View posterior, lateral Head/C-Spine Posture Forward Head L-Spine Posture Fixed Scoliosis on (R) Shoulder Posture (L) Rounded,(R) Rounded,(L) Elevated Arm Posture (L) Internally Rotated,(R) Internally Rotated Pelvis Posture Anteriorly Tilted,(R) Iliac Crest Superior Weight Distribution Balanced Hip Posture (L) Externally Rotated,(R) Externally Rotated Knee Posture (L) Genu Varus,(R) Genu Varus Patellar Posture (L) Superior,(R) Superior Ankle/Foot Posture (L) Neutral,(R) Neutral Comments Posture Comments Dextroscoliosis lumbar spine Palpation Assessment Location lumbar spine Palpation Location paraspinals, glutes, QL, L1-L5 spinous processes, PSIS, SIJ Palpation Findings Soft Tissue Tightness Palpation Details Tenderness along B PSIS, L>R. No tenderness along spinous or transverse processes of L spine. No tenderness of B SIJ. No tenderness of glutes, hip external rotators, greater trochanter, proximal hamstrings. Increased soft tissue tightness of lumbar paraspinals, QL PT-OP-K Range of Motion Start: 06/27/23 13:45 Freq: Status: Active Protocol: Document 06/27/23 13:46 NM (Rec: 06/27/23 17:22 NM [id number]) Lumbar Spine Range of Motion Lumbar Spine Active Percentage Testing Position Standing Flexion 50 Extension 50 Rotation Left 3 Rotation Right 3 Lateral Flexion Left 50 Lateral Flexion Right 50 ROM Limitations Soft Tissue Tightness,Pain Comments Reports minimal pain/pulling with spinal extension. No pain with rotation or flexion. Demos decreased hamstring length with flexion (to knees) and lateral flexion (to mid lateral thigh) Hip Goniometric Range of Motion Hip right Flexion w/Knee Flexed 110 Straight Leg Raise 80 Internal Rotation 15 External Rotation 25 Comments Hamstring length: 140 deg left Testing Position Supine Flexion w/Knee Flexed 112 Straight Leg Raise 70 Internal Rotation 20 External Rotation 15 Comments Hamstring length: 150 deg; pt reports feels more restricted PT-OP-L Special Tests Start: 06/27/23 13:45 Freq: Status: Active Protocol: Document 06/27/23 13:46 NM (Rec: 06/27/23 17:22 NM [id number]) Special Tests Lumbar Spine Special Tests SIJ Thigh thrust Test Results - SIJ Anterior gapping Test Results - Distraction Test Results + Comments reports relief Pierre/Quadrant Test Results - Comments no local or referred pain with 3D testing Straight Leg Raise Test Results + Slump Test Results + Comments improved with head ext Hip Special Tests NGA Test Results - Comments Unable to perform fully due to ROM limitations on LLE FADIR Test Results - PT-OP-M Strength Start: 06/27/23 13:45 Freq: Status: Active Protocol: Document 06/27/23 13:46 NM (Rec: 06/27/23 17:22 NM [id number]) Trunk Strength Trunk Manual Muscle Testing Testing Position Sitting Flexion 4 Good Extension 4 Good Rotation Left 3+ Fair+ Rotation Right 3+ Fair+ Lateral Flexion Left 3+ Fair+ Lateral Flexion Right 3+ Fair+ Comments No pain with resisted testing. Decreased ability to stabilize against frontal plane resistance Hip Strength Hip Manual Muscle Testing Right Flexion (L2) 4 Good Extension (S1) 4- Good- Abduction 4 Good Adduction 4 Good External Rotation 4- Good- Internal Rotation 4- Good- Comments Low back pain only with resisted extension Left Flexion (L2) 4 Good Extension (S1) 3+ Fair+ Abduction 4 Good Adduction 4 Good External Rotation 4- Good- Internal Rotation 4- Good- Comments Low back pain only with resisted extension Knee Strength Knee Manual Muscle Testing Right Flexion (S2) 4 Good Extension (L3) 4 Good Left Flexion (S2) 4 Good Extension (L3) 4 Good Ankle/Foot Strength Ankle and Foot Manual Muscle Testing Right Dorsiflexion (L4) 4 Good Plantarflexion (S1) 4 Good Left Dorsiflexion (L4) 4 Good Plantarflexion (S1) 4 Good PT-OP-Q Treatments Start: 06/27/23 13:45 Freq: Status: Active Protocol: Document 07/04/23 13:56 SP (Rec: 07/04/23 14:42 SP [id number]) Therapeutic Exercises Supine Exercises Shawn stretch Supine Exercise Name added to HEP Side bilateral Resistance R>L tightness Reps/Minutes 60 Comments good feedback and noted increase hip flexor flexibility/thigh closer table posterior pelvic tilt Side bilateral Reps/Minutes 1x10 Comments cued for return to neutral spine vs ant tilt TA activation Supine Exercise Name 1. abdominal draw in ([facility]), 2. B july sequ lift/lower, 3. july single leg Equipment Used ART MODEL tactile cues at core and ed self palpate Reps/Minutes 1. 1x10 with brief hold, 2. 1x10 with brief sec hold, 3. 1x5 ea w 1 hold Comments cued for breathing while draw up/in, control during motion, reports no pain sciatic nerve glide Supine Exercise Name with dynamic hamstring stretch (HEP nerve glide) Side bilateral Equipment Used hold supine 07/04 Reps/Minutes 1x10 with 10 hold Comments pain into R SI area with reps, not signif improvement angle Leg/ TA piriformis stretch Supine Exercise Name 1. figure 4 with opp LE straight/ ft inside thigh, 2. hip IR stretch bent Side bilateral Reps/Minutes 2x30 ea Comments reports tightness in back and hip ERs; cued for form knee to chest Supine Exercise Name lumbar spine stretch Side bilateral Reps/Minutes 1x60 Comments reports good lumbar spine stretch, no pain Sitting Exercises sciatic nerve glide Sitting Exercise Name added to HEP Resistance L>R Reps/Minutes 10 APs Comments cued straight back, hip hinge trunk flexion/ angles QL/ES stretch Sitting Exercise Name added to [facility]: fwd, angled over each LE Side bilateral Reps/Minutes 15 SH each 3 positions Comments Better ES and QL stretch Standing Exercises lateral flexion paraspinal stretch Standing Exercise Name Didnt help or give stretch Comments DC Other Exercises soft tissue mobilization Other Exercise Name paraspinals, QL- reviewed HEP Side bilateral Equipment Used ball wall Reps/Minutes 2 ea side Comments reports feels good Manual Therapy Treatment Soft Tissue Mobilization L QL, glut med, piriformis Mobilization Type Strumming,Sustained Pressure, Other Intensity/Depth mod Body Position R SL Comments STMs ed ball wall does at home , MWM hip abd clamshell- lessened tension PT-OP-T Assessment and Plan Start: 06/27/23 13:45 Freq: Status: Active Protocol: Document 07/04/23 13:56 SP (Rec: 07/04/23 14:42 SP [id number]) Physical Therapy Assessment Goals Five Impairment activity tolerance Impairment Pt w/o HEP Short Term Goal (STG) Pt will report compliance with HEP 2-3/wk in order to demonstrate independence and management of symptoms for return to activity STG Duration 4 weeks Carpenter'S Assistant Goal (LTG) Pt will report compliance with HEP 3x/wk to demonstrate ability to participate in independent exercise for maintenance program after discharge from PT LTG Duration 8 weeks Four Impairment AROM, ADLs Impairment unable to put on L shoe Care Home Goal (LTG) Pt will report that he is able to put on his L shoe in sitting without compensation or reports of low back pain in order to demonstrate improved ability to participate in dressing ADLs LTG Duration 8 weeks Three Impairment hip IR Impairment R hip IR 15 deg Short Term Goal (STG) Pt will increase R hip IR to at least 20 deg in order to demonstrate improved hip mobility STG Duration 4 weeks Care Home Goal (LTG) Pt will increase R hip IR to at least 25 deg in order to demonstrate improved hip mobility LTG Duration 8 weeks Two Impairment hip ER Impairment L ER AROM 15 deg Short Term Goal (STG) Pt will improve L ER AROM to at least 20 deg in order to demonstrate increased hip mobility to put on his shoes STG Duration 4 weeks Care Home Goal (LTG) Pt will improve L ER AROM to at least 25 deg in order to demonstrate increased hip mobility to put on his shoes LTG Duration 8 weeks One Impairment hamstring length Impairment R hamstring length 140 deg, L hamstring length 150 deg Short Term Goal (STG) Pt will improve B hamstring length by at least 5 deg ea for improved TKE during gait and to improve overall spinal/ hip mobility for improved activity tolerance STG Duration 4 weeks Carpenter'S Assistant Goal (LTG) Pt will improve B hamstring length by at least 10 deg ea for improved TKE during gait and to improve overall spinal/ hip mobility for improved activity tolerance LTG Duration 8 weeks Assessment Summary Assessment Pt good feedback to stretching review, improved TA draw in and engagement /c PPT sequencial and single march this tx. Pt demonstrated increased hip flexor ROM with use breath exhale. Pt reports uses the ball on wall for self STMs and helpful carryover home. Physical Therapy Plan Frequency and Duration Frequency of Treatment 2x/Week Duration of treatment (weeks) 8 Plan of Care Start Date 06/27/23 Plan of Care End Date 08/26/23 Therapeutic Interventions Therapeutic Interventions Aquatic Therapy,Balance Training,Coordination Training ,Gait Training,Home Exercise Program,Joint Mobilizations, Manual Therapy,Neuromuscular Re-education,Orthotic/ Prosthetic Management,Patient/ Caregiver Education,Self-Care/ Home Management,Sensory Integration,Soft Tissue Mobilization,Taping, Therapeutic Activities, Therapeutic Exercises Modalities Biofeedback,Cold Pack/Ice Massage,Electric Stimulation, Hot Packs,Traction- Mechanical ,Ultrasound,Vasopneumatic Devices Other Therapeutic Interventions Manual traction, self traction Next Visit Focus/Plan Next Note Type Treatment Note Next Visit Plan Next session: manual tx to LS paraspinals, glutes, iliacus, psoas, quad, HS; check tolerance to stretches, HEP, STM Continue lumbar spine/hip stretching (knee to chest, ER, IR, HS), initiated mobility ( cat camel, thread needle, seated ball rocking) strengthening Initiate daily foot checks, est HEP/daily exercise and walking program Precautions: no excessive spinal flexion due to anterolisthesis, grade III mob max, limit end range ext
--- NOTE | 2023-07-06 14:30 | PT.OTN ---
Current Diagnoses Low back pain, unspecified (07/06/23) Unspecified abnormalities of gait and mobility (07/06/23) Weakness (07/06/23) Physical Therapy Treatment Note PT-OP-A Visit Information Start: 06/27/23 13:45 Freq: Status: Active Protocol: Document 07/06/23 13:49 SP (Rec: 07/06/23 14:33 SP [id number]) Out-Patient Physical Therapy Visit Information Visit Information Visit Type Treatment Note Visit Note KX after 19 visits Visit Start Time 13:49 Visit Stop Time 14:30 Visit Number 4 Number of APPLICATION DEVELOPMENT INTERN Visits 2 Evaluation Information Evaluation Date 06/27/23 Precautions Precautions Ant wedge deformity (L1), Anterolisthesis L4-L5, Hx of lumbar surgery PT-OP-B Current Condition Start: 06/27/23 13:45 Freq: Status: Active Protocol: Document 06/27/23 13:46 NM (Rec: 06/27/23 17:22 NM [id number]) Current Condition History of Current Condition Onset Date summer 2022 Current Complaints pain, decreased activity History of Current Condition Pt presents with low back pain . No known RONY. He has a hx of surgery for a pinched nerve he thinks left L3-5, a decade. Surgeon and pt to try conservative care. Pt is concerned that he has arthritis. The pain has worsened throughout 2022, with difficulty performing ADLs. He reports that his pain has significantly improved over the past 2 months but continues to exist. 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 He did have minimal back pain during summer, but it gradually worsened over the fall. Pt reports prn numbness /tingling L over the course of 10 years but none currently. Reports difficulty with sleeping after 6-7 hrs (total 8-10- sleeping on R side, pillow between knees), putting on shoes. He reports that he has been moving very gingerly to prevent. He has had episodic pain about 2 senior ago when shoveling snow, pain for about 2 months. Hx of tight hamstrings; no gym since covid Prior Treatments and Tests Previous PT prior to surgery MRI 04/2023: Ant wedge deformity (L1), Anterolisthesis L4-L5, Degenerative changes Prior Functional Status Baseline Function- ADL's Independent Baseline Function- Mobility Independent Baseline Function- Gait Walk >1 hr Baseline Function- Recreation/Hobbies Bikes miles Baseline Function- Other No difficulty with dressing Current Functional Impairments (Reported) Functional Limitations- ADL's Difficulty with putting on shoes Functional Limitations- Mobility/Gait Limited 1 hr max with gait; stand 1/2 hr before painful; painful sit>stand Functional Limitations- Recreation/ Does not participate due to Hobbies fear of pain Functional Limitations- Other sleeps on R side with pillow between knees for 6-7 hrs before wakes due to pain PT-OP-C Subjective Start: 06/27/23 13:45 Freq: Status: Active Protocol: Document 07/06/23 13:49 SP (Rec: 07/06/23 14:33 SP [id number]) OP-PT Subjective Patient Comments Patient Comments Pt reports felt fine after last tx. Compliant with HEP. PT-OP-E Functional Tests Start: 06/27/23 13:45 Freq: Status: Active Protocol: Document 06/27/23 13:46 NM (Rec: 06/27/23 17:22 NM [id number]) Functional Tests 30 Second Sit to Stand Test Score 14 Comments reports no pain with transition to stand, increased flexed trunk PT-OP-F Manual Assessment Start: 06/27/23 13:45 Freq: Status: Active Protocol: Document 06/27/23 13:46 NM (Rec: 06/27/23 17:22 NM [id number]) Manual Assessments Soft Tissue Assessment Soft Tissue Mobility Assessment Bilateral hamstring tightness. Increased tone of lumbar paraspinals, L>R Joint Mobility Assessment Joint Mobility Assessment Hypomobility of thoracic and lumbar spine with P-A springing of spinous processes . Decreased hip ER/IR bilaterally in sitting and supine. Unable to placed L ankle over R knee (e.g. to put on shoes) PT-OP-G Mobility & Gait Start: 06/27/23 13:45 Freq: Status: Active Protocol: Document 06/27/23 13:46 NM (Rec: 06/27/23 17:22 NM [id number]) OP Gait Assessment Gait Gait Assistance Required: Independent Distance (Feet) 200 Assistive Devices Assistive Device None Gait Deviations General Gait Pattern Antalgic,Flexed Trunk,Wide Based Gait Factors Limiting Gait Function Factors Limiting Gait Function Decreased Sensation,Decreased Strength,Poor Balance Comments Gait Comments Decreased trunk rotation with gait, B external rotation of feet, flexed trunk posture; wider FREDY PT-OP-H Neuro Start: 06/27/23 13:45 Freq: Status: Active Protocol: Document 06/27/23 13:46 NM (Rec: 06/27/23 17:22 NM [id number]) Sensation Evaluation Gross Sensation Gross Sensation Left LE Impaired,Right LE Impaired Comments Summary Comments Decreased light touch sensation along dorsal and plantar surfaces of feet; other BLE dermatomes intact PT-OP-J Posture/Palpation/Skin Start: 06/27/23 13:45 Freq: Status: Active Protocol: Document 06/27/23 13:46 NM (Rec: 06/27/23 17:22 NM [id number]) Posture Evaluation Position Standing Evaluation View posterior, lateral Head/C-Spine Posture Forward Head L-Spine Posture Fixed Scoliosis on (R) Shoulder Posture (L) Rounded,(R) Rounded,(L) Elevated Arm Posture (L) Internally Rotated,(R) Internally Rotated Pelvis Posture Anteriorly Tilted,(R) Iliac Crest Superior Weight Distribution Balanced Hip Posture (L) Externally Rotated,(R) Externally Rotated Knee Posture (L) Genu Varus,(R) Genu Varus Patellar Posture (L) Superior,(R) Superior Ankle/Foot Posture (L) Neutral,(R) Neutral Comments Posture Comments Dextroscoliosis lumbar spine Palpation Assessment Location lumbar spine Palpation Location paraspinals, glutes, QL, L1-L5 spinous processes, PSIS, SIJ Palpation Findings Soft Tissue Tightness Palpation Details Tenderness along B PSIS, L>R. No tenderness along spinous or transverse processes of L spine. No tenderness of B SIJ. No tenderness of glutes, hip external rotators, greater trochanter, proximal hamstrings. Increased soft tissue tightness of lumbar paraspinals, QL PT-OP-K Range of Motion Start: 06/27/23 13:45 Freq: Status: Active Protocol: Document 06/27/23 13:46 NM (Rec: 06/27/23 17:22 NM [id number]) Lumbar Spine Range of Motion Lumbar Spine Active Percentage Testing Position Standing Flexion 50 Extension 50 Rotation Left 3 Rotation Right 3 Lateral Flexion Left 50 Lateral Flexion Right 50 ROM Limitations Soft Tissue Tightness,Pain Comments Reports minimal pain/pulling with spinal extension. No pain with rotation or flexion. Demos decreased hamstring length with flexion (to knees) and lateral flexion (to mid lateral thigh) Hip Goniometric Range of Motion Hip right Flexion w/Knee Flexed 110 Straight Leg Raise 80 Internal Rotation 15 External Rotation 25 Comments Hamstring length: 140 deg left Testing Position Supine Flexion w/Knee Flexed 112 Straight Leg Raise 70 Internal Rotation 20 External Rotation 15 Comments Hamstring length: 150 deg; pt reports feels more restricted PT-OP-L Special Tests Start: 06/27/23 13:45 Freq: Status: Active Protocol: Document 06/27/23 13:46 NM (Rec: 06/27/23 17:22 NM [id number]) Special Tests Lumbar Spine Special Tests SIJ Thigh thrust Test Results - SIJ Anterior gapping Test Results - Distraction Test Results + Comments reports relief Pierre/Quadrant Test Results - Comments no local or referred pain with 3D testing Straight Leg Raise Test Results + Slump Test Results + Comments improved with head ext Hip Special Tests NGA Test Results - Comments Unable to perform fully due to ROM limitations on LLE FADIR Test Results - PT-OP-M Strength Start: 06/27/23 13:45 Freq: Status: Active Protocol: Document 06/27/23 13:46 NM (Rec: 06/27/23 17:22 NM [id number]) Trunk Strength Trunk Manual Muscle Testing Testing Position Sitting Flexion 4 Good Extension 4 Good Rotation Left 3+ Fair+ Rotation Right 3+ Fair+ Lateral Flexion Left 3+ Fair+ Lateral Flexion Right 3+ Fair+ Comments No pain with resisted testing. Decreased ability to stabilize against frontal plane resistance Hip Strength Hip Manual Muscle Testing Right Flexion (L2) 4 Good Extension (S1) 4- Good- Abduction 4 Good Adduction 4 Good External Rotation 4- Good- Internal Rotation 4- Good- Comments Low back pain only with resisted extension Left Flexion (L2) 4 Good Extension (S1) 3+ Fair+ Abduction 4 Good Adduction 4 Good External Rotation 4- Good- Internal Rotation 4- Good- Comments Low back pain only with resisted extension Knee Strength Knee Manual Muscle Testing Right Flexion (S2) 4 Good Extension (L3) 4 Good Left Flexion (S2) 4 Good Extension (L3) 4 Good Ankle/Foot Strength Ankle and Foot Manual Muscle Testing Right Dorsiflexion (L4) 4 Good Plantarflexion (S1) 4 Good Left Dorsiflexion (L4) 4 Good Plantarflexion (S1) 4 Good PT-OP-Q Treatments Start: 06/27/23 13:45 Freq: Status: Active Protocol: Document 07/06/23 13:49 SP (Rec: 07/06/23 14:33 SP [id number]) Gym Equipment Shuttle Recovery unilateral squat Resistance 37#1 navy Reps/Time x10 bilateral squat Resistance 50# B navy Reps/Time x20 Therapeutic Exercises Supine Exercises bridge Reps/Minutes x10 post manual and gregg stretch Comments good form Gregg stretch Supine Exercise Name reviewed HEP Side bilateral Resistance R>L tightness Reps/Minutes 60 Comments good feedback and noted increase hip flexor flexibility/thigh closer table TA activation Supine Exercise Name 1. abdominal draw in (HEP), 2. B july sequ lift/lower, 3. july single leg Equipment Used APPLICATION DEVELOPMENT INTERN tactile cues at core and ed self palpate Reps/Minutes 1. 1x10 with brief hold, 2. 1x10 with brief sec hold, 3. 1x5 ea w 1 hold Comments improved breath /c sequ lift/ lower, reports no pain knee to chest Supine Exercise Name lumbar spine stretch: DKTC Side bilateral Reps/Minutes 1x60 Comments reports good lumbar spine stretch, no pain Standing Exercises lift Standing Exercise Name added to HEP Equipment Used dowel sub knee to mid shins: approx 4 increased ROM Reps/Minutes 1 SH x10 Comments good posterior chain stretch, mostly distal HS reported- good hip hinge Manual Therapy Treatment Soft Tissue Mobilization B hip flexors Body Location psoas, iliacus, TFL, quad Mobilization Type Instrument Assisted,Strumming, Sustained Pressure,Other Comments supine, breath Self-Care/Home Management Treatment Education Patient Education Home Exercise Program,Pain Management Other Education ed use rolling pin seated: B quad, ITB- discussed self pre Gregg stretch: during manual tx. PT-OP-T Assessment and Plan Start: 06/27/23 13:45 Freq: Status: Active Protocol: Document 07/06/23 13:49 SP (Rec: 07/06/23 14:33 SP [id number]) Physical Therapy Assessment Goals Five Impairment activity tolerance Impairment Pt w/o HEP Short Term Goal (STG) Pt will report compliance with HEP 2-3/wk in order to demonstrate independence and management of symptoms for return to activity STG Duration 4 weeks Jail Goal (LTG) Pt will report compliance with HEP 3x/wk to demonstrate ability to participate in independent exercise for maintenance program after discharge from PT LTG Duration 8 weeks Four Impairment AROM, ADLs Impairment unable to put on L shoe Jail Goal (LTG) Pt will report that he is able to put on his L shoe in sitting without compensation or reports of low back pain in order to demonstrate improved ability to participate in dressing ADLs LTG Duration 8 weeks Three Impairment hip IR Impairment R hip IR 15 deg Short Term Goal (STG) Pt will increase R hip IR to at least 20 deg in order to demonstrate improved hip mobility STG Duration 4 weeks Jail Goal (LTG) Pt will increase R hip IR to at least 25 deg in order to demonstrate improved hip mobility LTG Duration 8 weeks Two Impairment hip ER Impairment L ER AROM 15 deg Short Term Goal (STG) Pt will improve L ER AROM to at least 20 deg in order to demonstrate increased hip mobility to put on his shoes STG Duration 4 weeks Cheese Tester Goal (LTG) Pt will improve L ER AROM to at least 25 deg in order to demonstrate increased hip mobility to put on his shoes LTG Duration 8 weeks One Impairment hamstring length Impairment R hamstring length 140 deg, L hamstring length 150 deg Short Term Goal (STG) Pt will improve B hamstring length by at least 5 deg ea for improved TKE during gait and to improve overall spinal/ hip mobility for improved activity tolerance STG Duration 4 weeks Cheese Tester Goal (LTG) Pt will improve B hamstring length by at least 10 deg ea for improved TKE during gait and to improve overall spinal/ hip mobility for improved activity tolerance LTG Duration 8 weeks Assessment Summary Assessment Pt responded well to manual and education on self application decrease tension quads pre but performed during Gregg stretch, improved increase ROM. Pt reported no back pain and improved core exercises, cues for counting out loud breath allowance improvement, reduction in inhale hold for bracing. Added bridging with good form to allow increase hip extension strenghtening and hip flexor elongation. He responded well to trial lift with proper hip hinge back alignment form and safe posterior chain stretch mainly HS reported, gained approx 4 elongated ROM . Physical Therapy Plan Frequency and Duration Frequency of Treatment 2x/Week Duration of treatment (weeks) 8 Plan of Care Start Date 06/27/23 Plan of Care End Date 08/26/23 Therapeutic Interventions Therapeutic Interventions Aquatic Therapy,Balance Training,Coordination Training ,Gait Training,Home Exercise Program,Joint Mobilizations, Manual Therapy,Neuromuscular Re-education,Orthotic/ Prosthetic Management,Patient/ Caregiver Education,Self-Care/ Home Management,Sensory Integration,Soft Tissue Mobilization,Taping, Therapeutic Activities, Therapeutic Exercises Modalities Biofeedback,Cold Pack/Ice Massage,Electric Stimulation, Hot Packs,Traction- Mechanical ,Ultrasound,Vasopneumatic Devices Other Therapeutic Interventions Manual traction, self traction Next Visit Focus/Plan Next Note Type Treatment Note Next Visit Plan Check response to added bridge and lift for posterior chain flex and strength. Next session: manual tx to LS paraspinals, glutes, iliacus, psoas, quad, HS; check tolerance to stretches, HEP, STM Continue lumbar spine/hip stretching (knee to chest, ER, IR, HS), initiated mobility ( cat camel, thread needle, seated ball rocking) strengthening Initiate daily foot checks, est HEP/daily exercise and walking program Precautions: no excessive spinal flexion due to anterolisthesis, grade III mob max, limit end range ext
--- NOTE | 2023-07-12 08:58 | PT.OTN ---
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 No known RONY. He has a hx of surgery for a pinched nerve he thinks left L3-5, a decade. Surgeon and pt to try conservative care. Pt is concerned that he has arthritis. The pain has worsened throughout 2022, with difficulty performing ADLs. He reports that his pain has significantly improved over the past 2 months but continues to exist. 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 He did have minimal back pain during summer, but it gradually worsened over the fall. Pt reports prn numbness /tingling L over the course of 10 years but none currently. Reports difficulty with sleeping after 6-7 hrs (total 8-10- sleeping on R side, pillow between knees), putting on shoes. He reports that he has been moving very gingerly to prevent. He has had episodic pain about 2 senior ago when shoveling snow, pain for about 2 months. Hx of tight hamstrings; no gym since covid Prior Treatments and Tests Previous PT prior to surgery MRI 04/2023: Ant wedge deformity (L1), Anterolisthesis L4-L5, Degenerative changes Prior Functional Status Baseline Function- ADL's Independent Baseline Function- Mobility Independent Baseline Function- Gait Walk >1 hr Baseline Function- Recreation/Hobbies Bikes miles Baseline Function- Other No difficulty with dressing Current Functional Impairments (Reported) Functional Limitations- ADL's Difficulty with putting on shoes Functional Limitations- Mobility/Gait Limited 1 hr max with gait; stand 1/2 hr before painful; painful sit>stand Functional Limitations- Recreation/ Does not participate due to Hobbies fear of pain Functional Limitations- Other sleeps on R side with pillow between knees for 6-7 hrs before wakes due to pain PT-OP-C Subjective Start: 06/27/23 13:45 Freq: Status: Active Protocol: Document 07/12/23 08:18 SP (Rec: 07/12/23 09:04 SP [id number]) OP-PT Subjective Patient Comments Patient Comments Pt reports felt fine after last tx, felt working it and no pain. Back getting better and but still need to work on leg strength PT-OP-E Functional Tests Start: 06/27/23 13:45 Freq: Status: Active Protocol: Document 06/27/23 13:46 NM (Rec: 06/27/23 17:22 NM [id number]) Functional Tests 30 Second Sit to Stand Test Score 14 Comments reports no pain with transition to stand, increased flexed trunk PT-OP-F Manual Assessment Start: 06/27/23 13:45 Freq: Status: Active Protocol: Document 06/27/23 13:46 NM (Rec: 06/27/23 17:22 NM [id number]) Manual Assessments Soft Tissue Assessment Soft Tissue Mobility Assessment Bilateral hamstring tightness. Increased tone of lumbar paraspinals, L>R Joint Mobility Assessment Joint Mobility Assessment Hypomobility of thoracic and lumbar spine with P-A springing of spinous processes . Decreased hip ER/IR bilaterally in sitting and supine. Unable to placed L ankle over R knee (e.g. to put on shoes) PT-OP-G Mobility & Gait Start: 06/27/23 13:45 Freq: Status: Active Protocol: Document 06/27/23 13:46 NM (Rec: 06/27/23 17:22 NM [id number]) OP Gait Assessment Gait Gait Assistance Required: Independent Distance (Feet) 200 Assistive Devices Assistive Device None Gait Deviations General Gait Pattern Antalgic,Flexed Trunk,Wide Based Gait Factors Limiting Gait Function Factors Limiting Gait Function Decreased Sensation,Decreased Strength,Poor Balance Comments Gait Comments Decreased trunk rotation with gait, B external rotation of feet, flexed trunk posture; wider FREDY PT-OP-H Neuro Start: 06/27/23 13:45 Freq: Status: Active Protocol: Document 06/27/23 13:46 NM (Rec: 06/27/23 17:22 NM [id number]) Sensation Evaluation Gross Sensation Gross Sensation Left LE Impaired,Right LE Impaired Comments Summary Comments Decreased light touch sensation along dorsal and plantar surfaces of feet; other BLE dermatomes intact PT-OP-J Posture/Palpation/Skin Start: 06/27/23 13:45 Freq: Status: Active Protocol: Document 06/27/23 13:46 NM (Rec: 06/27/23 17:22 NM [id number]) Posture Evaluation Position Standing Evaluation View posterior, lateral Head/C-Spine Posture Forward Head L-Spine Posture Fixed Scoliosis on (R) Shoulder Posture (L) Rounded,(R) Rounded,(L) Elevated Arm Posture (L) Internally Rotated,(R) Internally Rotated Pelvis Posture Anteriorly Tilted,(R) Iliac Crest Superior Weight Distribution Balanced Hip Posture (L) Externally Rotated,(R) Externally Rotated Knee Posture (L) Genu Varus,(R) Genu Varus Patellar Posture (L) Superior,(R) Superior Ankle/Foot Posture (L) Neutral,(R) Neutral Comments Posture Comments Dextroscoliosis lumbar spine Palpation Assessment Location lumbar spine Palpation Location paraspinals, glutes, QL, L1-L5 spinous processes, PSIS, SIJ Palpation Findings Soft Tissue Tightness Palpation Details Tenderness along B PSIS, L>R. No tenderness along spinous or transverse processes of L spine. No tenderness of B SIJ. No tenderness of glutes, hip external rotators, greater trochanter, proximal hamstrings. Increased soft tissue tightness of lumbar paraspinals, QL PT-OP-K Range of Motion Start: 06/27/23 13:45 Freq: Status: Active Protocol: Document 06/27/23 13:46 NM (Rec: 06/27/23 17:22 NM [id number]) Lumbar Spine Range of Motion Lumbar Spine Active Percentage Testing Position Standing Flexion 50 Extension 50 Rotation Left 3 Rotation Right 3 Lateral Flexion Left 50 Lateral Flexion Right 50 ROM Limitations Soft Tissue Tightness,Pain Comments Reports minimal pain/pulling with spinal extension. No pain with rotation or flexion. Demos decreased hamstring length with flexion (to knees) and lateral flexion (to mid lateral thigh) Hip Goniometric Range of Motion Hip right Flexion w/Knee Flexed 110 Straight Leg Raise 80 Internal Rotation 15 External Rotation 25 Comments Hamstring length: 140 deg left Testing Position Supine Flexion w/Knee Flexed 112 Straight Leg Raise 70 Internal Rotation 20 External Rotation 15 Comments Hamstring length: 150 deg; pt reports feels more restricted PT-OP-L Special Tests Start: 06/27/23 13:45 Freq: Status: Active Protocol: Document 06/27/23 13:46 NM (Rec: 06/27/23 17:22 NM [id number]) Special Tests Lumbar Spine Special Tests SIJ Thigh thrust Test Results - SIJ Anterior gapping Test Results - Distraction Test Results + Comments reports relief Pierre/Quadrant Test Results - Comments no local or referred pain with 3D testing Straight Leg Raise Test Results + Slump Test Results + Comments improved with head ext Hip Special Tests NGA Test Results - Comments Unable to perform fully due to ROM limitations on LLE FADIR Test Results - PT-OP-M Strength Start: 06/27/23 13:45 Freq: Status: Active Protocol: Document 06/27/23 13:46 NM (Rec: 06/27/23 17:22 NM [id number]) Trunk Strength Trunk Manual Muscle Testing Testing Position Sitting Flexion 4 Good Extension 4 Good Rotation Left 3+ Fair+ Rotation Right 3+ Fair+ Lateral Flexion Left 3+ Fair+ Lateral Flexion Right 3+ Fair+ Comments No pain with resisted testing. Decreased ability to stabilize against frontal plane resistance Hip Strength Hip Manual Muscle Testing Right Flexion (L2) 4 Good Extension (S1) 4- Good- Abduction 4 Good Adduction 4 Good External Rotation 4- Good- Internal Rotation 4- Good- Comments Low back pain only with resisted extension Left Flexion (L2) 4 Good Extension (S1) 3+ Fair+ Abduction 4 Good Adduction 4 Good External Rotation 4- Good- Internal Rotation 4- Good- Comments Low back pain only with resisted extension Knee Strength Knee Manual Muscle Testing Right Flexion (S2) 4 Good Extension (L3) 4 Good Left Flexion (S2) 4 Good Extension (L3) 4 Good Ankle/Foot Strength Ankle and Foot Manual Muscle Testing Right Dorsiflexion (L4) 4 Good Plantarflexion (S1) 4 Good Left Dorsiflexion (L4) 4 Good Plantarflexion (S1) 4 Good PT-OP-Q Treatments Start: 06/27/23 13:45 Freq: Status: Active Protocol: Document 07/12/23 08:18 SP (Rec: 07/12/23 09:04 SP [id number]) Gym Equipment Shuttle Recovery unilateral squat Resistance 50# 2 navy Reps/Time 8 R, 10 L bilateral squat Resistance 50# >75# 3 navy Reps/Time x20 Therapeutic Exercises Supine Exercises bridge Supine Exercise Name 1. DL 2. SL Reps/Minutes 1. 10 2. x8 each Comments good form DL, cued ft closer decrease HS stress recruitment Shawn stretch Supine Exercise Name reviewed HEP Side bilateral Resistance R>L tightness Reps/Minutes 60 Comments good feedback and noted increase hip flexor flexibility/thigh closer table Sidelying Exercises hip ABD Sidelying Exercise Name trialed in PT only Side bilateral Resistance lean into top arm kickstand support- added A Reps/Minutes x8 reps Comments tactile cues stacked side, straight leg- more challenge onL side Standing Exercises eccentric chair taps Standing Exercise Name added to HEP for leg/core strength Resistance arms across body Equipment Used mesh chair (2 actually tapped chair end reps) Reps/Minutes 8, 2 reps Comments good hip hinge mechanics, knees tired no pain lift Standing Exercise Name reviewed HEP Equipment Used dowel + 2# wt sub knee to mid shins: approx 8 increased ROM Reps/Minutes 1 SH x10 Comments good posterior chain stretch, mostly distal HS reported- good hip hinge Other Exercises soft tissue mobilization Other Exercise Name rolling pin & ball at wall: quad, TFL, HS, calf, glut Side bilateral Resistance wt shift rolling ball into wall over mm Reps/Minutes 1 min total Comments reports feels good, better than was arrived post manual and self Review Manual Therapy Treatment Soft Tissue Mobilization B hip flexors Body Location psoas, TFL, quad Mobilization Type Instrument Assisted Comments manual and ed self application ball roll/ rolling pin PT-OP-T Assessment and Plan Start: 06/27/23 13:45 Freq: Status: Active Protocol: Document 07/12/23 08:18 SP (Rec: 07/12/23 09:04 SP [id number]) Physical Therapy Assessment Goals Five Impairment activity tolerance Impairment Pt w/o HEP Short Term Goal (STG) Pt will report compliance with HEP 2-3/wk in order to demonstrate independence and management of symptoms for return to activity STG Duration 4 weeks Snf Goal (LTG) Pt will report compliance with HEP 3x/wk to demonstrate ability to participate in independent exercise for maintenance program after discharge from PT LTG Duration 8 weeks Four Impairment AROM, ADLs Impairment unable to put on L shoe Snf Goal (LTG) Pt will report that he is able to put on his L shoe in sitting without compensation or reports of low back pain in order to demonstrate improved ability to participate in dressing ADLs LTG Duration 8 weeks Three Impairment hip IR Impairment R hip IR 15 deg Short Term Goal (STG) Pt will increase R hip IR to at least 20 deg in order to demonstrate improved hip mobility STG Duration 4 weeks Nurse Transplant Goal (LTG) Pt will increase R hip IR to at least 25 deg in order to demonstrate improved hip mobility LTG Duration 8 weeks Two Impairment hip ER Impairment L ER AROM 15 deg Short Term Goal (STG) Pt will improve L ER AROM to at least 20 deg in order to demonstrate increased hip mobility to put on his shoes STG Duration 4 weeks Snf Goal (LTG) Pt will improve L ER AROM to at least 25 deg in order to demonstrate increased hip mobility to put on his shoes LTG Duration 8 weeks One Impairment hamstring length Impairment R hamstring length 140 deg, L hamstring length 150 deg Short Term Goal (STG) Pt will improve B hamstring length by at least 5 deg ea for improved TKE during gait and to improve overall spinal/ hip mobility for improved activity tolerance STG Duration 4 weeks Nurse Transplant Goal (LTG) Pt will improve B hamstring length by at least 10 deg ea for improved TKE during gait and to improve overall spinal/ hip mobility for improved activity tolerance LTG Duration 8 weeks Assessment Summary Assessment Pt improved decrease hip flexor tension post manual and active posterior chain flexibiltiy with lift and eccentric chair taps. Reports no LBP through out tx and good form demonstrated. Physical Therapy Plan Frequency and Duration Frequency of Treatment 2x/Week Duration of treatment (weeks) 8 Plan of Care Start Date 06/27/23 Plan of Care End Date 08/26/23 Therapeutic Interventions Therapeutic Interventions Aquatic Therapy,Balance Training,Coordination Training ,Gait Training,Home Exercise Program,Joint Mobilizations, Manual Therapy,Neuromuscular Re-education,Orthotic/ Prosthetic Management,Patient/ Caregiver Education,Self-Care/ Home Management,Sensory Integration,Soft Tissue Mobilization,Taping, Therapeutic Activities, Therapeutic Exercises Modalities Biofeedback,Cold Pack/Ice Massage,Electric Stimulation, Hot Packs,Traction- Mechanical ,Ultrasound,Vasopneumatic Devices Other Therapeutic Interventions Manual traction, self traction Next Visit Focus/Plan Next Note Type Treatment Note Next Visit Plan Recheck lift/post chain stretch and added SL bridge, self STMs. POC: Next session: manual tx to LS paraspinals, glutes, iliacus, psoas, quad, HS; check tolerance to stretches, HEP, STM Continue lumbar spine/hip stretching (knee to chest, ER, IR, HS), initiated mobility ( cat camel, thread needle, seated ball rocking) strengthening Initiate daily foot checks, est HEP/daily exercise and walking program Precautions: no excessive spinal flexion due to anterolisthesis, grade III mob max, limit end range ext
--- NOTE | 2023-07-14 16:28 | PT.OTN ---
Current Diagnoses Low back pain, unspecified (07/14/23) Unspecified abnormalities of gait and mobility (07/14/23) Weakness (07/14/23) Physical Therapy Treatment Note PT-OP-A Visit Information Start: 06/27/23 13:45 Freq: Status: Active Protocol: Document 07/14/23 09:45 NM (Rec: 07/14/23 10:33 NM [id number]) Out-Patient Physical Therapy Visit Information Visit Information Visit Type Treatment Note Visit Start Time 09:45 Visit Stop Time 10:30 Visit Number 6 Evaluation Information Evaluation Date 06/27/23 PT-OP-B Current Condition Start: 06/27/23 13:45 Freq: Status: Active Protocol: Document 06/27/23 13:46 NM (Rec: 06/27/23 17:22 NM [id number]) Current Condition History of Current Condition Onset Date summer 2022 Current Complaints pain, decreased activity History of Current Condition Pt presents with low back pain . No known RONY. He has a hx of surgery for a pinched nerve he thinks left L3-5, a decade. Surgeon and pt to try conservative care. Pt is concerned that he has arthritis. The pain has worsened throughout 2022, with difficulty performing ADLs. He reports that his pain has significantly improved over the past 2 months but continues to exist. 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 He did have minimal back pain during summer, but it gradually worsened over the fall. Pt reports prn numbness /tingling L over the course of 10 years but none currently. Reports difficulty with sleeping after 6-7 hrs (total 8-10- sleeping on R side, pillow between knees), putting on shoes. He reports that he has been moving very gingerly to prevent. He has had episodic pain about 2 senior ago when shoveling snow, pain for about 2 months. Hx of tight hamstrings; no gym since covid Prior Treatments and Tests Previous PT prior to surgery MRI 04/2023: Ant wedge deformity (L1), Anterolisthesis L4-L5, Degenerative changes Prior Functional Status Baseline Function- ADL's Independent Baseline Function- Mobility Independent Baseline Function- Gait Walk >1 hr Baseline Function- Recreation/Hobbies Bikes miles Baseline Function- Other No difficulty with dressing Current Functional Impairments (Reported) Functional Limitations- ADL's Difficulty with putting on shoes Functional Limitations- Mobility/Gait Limited 1 hr max with gait; stand 1/2 hr before painful; painful sit>stand Functional Limitations- Recreation/ Does not participate due to Hobbies fear of pain Functional Limitations- Other sleeps on R side with pillow between knees for 6-7 hrs before wakes due to pain PT-OP-C Subjective Start: 06/27/23 13:45 Freq: Status: Active Protocol: Document 07/14/23 09:45 NM (Rec: 07/14/23 10:33 NM [id number]) OP-PT Subjective Patient Comments Patient Comments Pt reports that he felt fine after last treatment. Reports that he is doing well and hasn 't had more than 1/10 pain in his back. Occasional tightness in low back. Reports he is walking 1 hr without pain or discomfort every day. PT-OP-E Functional Tests Start: 06/27/23 13:45 Freq: Status: Active Protocol: Document 06/27/23 13:46 NM (Rec: 06/27/23 17:22 NM [id number]) Functional Tests 30 Second Sit to Stand Test Score 14 Comments reports no pain with transition to stand, increased flexed trunk PT-OP-F Manual Assessment Start: 06/27/23 13:45 Freq: Status: Active Protocol: Document 06/27/23 13:46 NM (Rec: 06/27/23 17:22 NM [id number]) Manual Assessments Soft Tissue Assessment Soft Tissue Mobility Assessment Bilateral hamstring tightness. Increased tone of lumbar paraspinals, L>R Joint Mobility Assessment Joint Mobility Assessment Hypomobility of thoracic and lumbar spine with P-A springing of spinous processes . Decreased hip ER/IR bilaterally in sitting and supine. Unable to placed L ankle over R knee (e.g. to put on shoes) PT-OP-G Mobility & Gait Start: 06/27/23 13:45 Freq: Status: Active Protocol: Document 06/27/23 13:46 NM (Rec: 06/27/23 17:22 NM [id number]) OP Gait Assessment Gait Gait Assistance Required: Independent Distance (Feet) 200 Assistive Devices Assistive Device None Gait Deviations General Gait Pattern Antalgic,Flexed Trunk,Wide Based Gait Factors Limiting Gait Function Factors Limiting Gait Function Decreased Sensation,Decreased Strength,Poor Balance Comments Gait Comments Decreased trunk rotation with gait, B external rotation of feet, flexed trunk posture; wider FREDY PT-OP-H Neuro Start: 06/27/23 13:45 Freq: Status: Active Protocol: Document 06/27/23 13:46 NM (Rec: 06/27/23 17:22 NM [id number]) Sensation Evaluation Gross Sensation Gross Sensation Left LE Impaired,Right LE Impaired Comments Summary Comments Decreased light touch sensation along dorsal and plantar surfaces of feet; other BLE dermatomes intact PT-OP-J Posture/Palpation/Skin Start: 06/27/23 13:45 Freq: Status: Active Protocol: Document 06/27/23 13:46 NM (Rec: 06/27/23 17:22 NM [id number]) Posture Evaluation Position Standing Evaluation View posterior, lateral Head/C-Spine Posture Forward Head L-Spine Posture Fixed Scoliosis on (R) Shoulder Posture (L) Rounded,(R) Rounded,(L) Elevated Arm Posture (L) Internally Rotated,(R) Internally Rotated Pelvis Posture Anteriorly Tilted,(R) Iliac Crest Superior Weight Distribution Balanced Hip Posture (L) Externally Rotated,(R) Externally Rotated Knee Posture (L) Genu Varus,(R) Genu Varus Patellar Posture (L) Superior,(R) Superior Ankle/Foot Posture (L) Neutral,(R) Neutral Comments Posture Comments Dextroscoliosis lumbar spine Palpation Assessment Location lumbar spine Palpation Location paraspinals, glutes, QL, L1-L5 spinous processes, PSIS, SIJ Palpation Findings Soft Tissue Tightness Palpation Details Tenderness along B PSIS, L>R. No tenderness along spinous or transverse processes of L spine. No tenderness of B SIJ. No tenderness of glutes, hip external rotators, greater trochanter, proximal hamstrings. Increased soft tissue tightness of lumbar paraspinals, QL PT-OP-K Range of Motion Start: 06/27/23 13:45 Freq: Status: Active Protocol: Document 06/27/23 13:46 NM (Rec: 06/27/23 17:22 NM [id number]) Lumbar Spine Range of Motion Lumbar Spine Active Percentage Testing Position Standing Flexion 50 Extension 50 Rotation Left 3 Rotation Right 3 Lateral Flexion Left 50 Lateral Flexion Right 50 ROM Limitations Soft Tissue Tightness,Pain Comments Reports minimal pain/pulling with spinal extension. No pain with rotation or flexion. Demos decreased hamstring length with flexion (to knees) and lateral flexion (to mid lateral thigh) Hip Goniometric Range of Motion Hip right Flexion w/Knee Flexed 110 Straight Leg Raise 80 Internal Rotation 15 External Rotation 25 Comments Hamstring length: 140 deg left Testing Position Supine Flexion w/Knee Flexed 112 Straight Leg Raise 70 Internal Rotation 20 External Rotation 15 Comments Hamstring length: 150 deg; pt reports feels more restricted PT-OP-L Special Tests Start: 06/27/23 13:45 Freq: Status: Active Protocol: Document 06/27/23 13:46 NM (Rec: 06/27/23 17:22 NM [id number]) Special Tests Lumbar Spine Special Tests SIJ Thigh thrust Test Results - SIJ Anterior gapping Test Results - Distraction Test Results + Comments reports relief Pierre/Quadrant Test Results - Comments no local or referred pain with 3D testing Straight Leg Raise Test Results + Slump Test Results + Comments improved with head ext Hip Special Tests NGA Test Results - Comments Unable to perform fully due to ROM limitations on LLE FADIR Test Results - PT-OP-M Strength Start: 06/27/23 13:45 Freq: Status: Active Protocol: Document 06/27/23 13:46 NM (Rec: 06/27/23 17:22 NM [id number]) Trunk Strength Trunk Manual Muscle Testing Testing Position Sitting Flexion 4 Good Extension 4 Good Rotation Left 3+ Fair+ Rotation Right 3+ Fair+ Lateral Flexion Left 3+ Fair+ Lateral Flexion Right 3+ Fair+ Comments No pain with resisted testing. Decreased ability to stabilize against frontal plane resistance Hip Strength Hip Manual Muscle Testing Right Flexion (L2) 4 Good Extension (S1) 4- Good- Abduction 4 Good Adduction 4 Good External Rotation 4- Good- Internal Rotation 4- Good- Comments Low back pain only with resisted extension Left Flexion (L2) 4 Good Extension (S1) 3+ Fair+ Abduction 4 Good Adduction 4 Good External Rotation 4- Good- Internal Rotation 4- Good- Comments Low back pain only with resisted extension Knee Strength Knee Manual Muscle Testing Right Flexion (S2) 4 Good Extension (L3) 4 Good Left Flexion (S2) 4 Good Extension (L3) 4 Good Ankle/Foot Strength Ankle and Foot Manual Muscle Testing Right Dorsiflexion (L4) 4 Good Plantarflexion (S1) 4 Good Left Dorsiflexion (L4) 4 Good Plantarflexion (S1) 4 Good PT-OP-Q Treatments Start: 06/27/23 13:45 Freq: Status: Active Protocol: Document 07/14/23 09:45 NM (Rec: 07/14/23 10:33 NM [id number]) Gym Equipment Shuttle Recovery unilateral squat Resistance 50# 2 [employer] Shuttle Recovery Platform Stable Reps/Time 2x10 ea bilateral squat Details cued to limit knee valgus Resistance 75# 3 Cellu[employer] Recovery Platform Stable Reps/Time 3x10 Therapeutic Exercises Supine Exercises bridge Supine Exercise Name trialed: single leg bridge Reps/Minutes 2 Comments demos hamstring cramps with bridge, no change after STM so d/c Shawn stretch Side bilateral Resistance R>L tightness Reps/Minutes 60 Comments improved flexibility, reports good stretch Sidelying Exercises hip ABD Side bilateral Resistance lean into top arm kickstand support- added A Reps/Minutes x8 reps Comments tactile cues stacked side, straight leg- more challenge onL side Standing Exercises side steps Standing Exercise Name initiated in PT Side bilateral Resistance lvl 2 tb around ankles Reps/Minutes 2x20 ft Comments cued for foot clearance, even squat posture entire time wall squats Standing Exercise Name with [place] ball for posterior weight shift Side bilateral Equipment Used large green [place] ball Reps/Minutes 1x10 Comments no knee pain with squat; between chair tap sets for form eccentric chair taps Standing Exercise Name for leg/core strength Resistance arms across body Equipment Used mesh chair Reps/Minutes 2x8 ea - cued limit trunk flexion Comments good hip hinge mechanics but increased trunk flex, knees tired no pain lift Equipment Used dowel + 2# wt sub knee to mid shins > 4# on dowel to mid shins Reps/Minutes 1x10> 2x10 ea Comments good posterior chain stretch, good hip hinge Manual Therapy Treatment Soft Tissue Mobilization R QL, glute med, piriformis, paraspinals Mobilization Type Rolling,Strumming,Sustained Pressure Intensity/Depth Moderate Body Position Prone Comments Most restriction reported in paraspinals. Reports relief post mobilization. Educated on heat at home prior to STM for muscle relaxation, educated to follow with exercise L QL, glut med, piriformis Body Location and paraspinals, hamstrings Mobilization Type Rolling,Strumming,Sustained Pressure Intensity/Depth Moderate Body Position Prone Comments Rolling of hamstrings dustin proximally for muscle relaxation. rolling, strumming , sustained pressure for glute med and piriformis. Reports good relief post soft tissue mobilization Joint Mobilizations R hip Joint trialed Direction inferior, lateral gap Grade II Body Position Hooklying Reps/Duration 1x30 ea Comments Initiated in PT for improved hip mobility. Tolerated well without pain. Reports good gapping in hips. PT-OP-T Assessment and Plan Start: 06/27/23 13:45 Freq: Status: Active Protocol: Document 07/14/23 09:45 NM (Rec: 07/14/23 10:33 NM [id number]) Physical Therapy Assessment Goals Five Impairment activity tolerance Impairment Pt w/o HEP Short Term Goal (STG) Pt will report compliance with HEP 2-3/wk in order to demonstrate independence and management of symptoms for return to activity 07/14/23: compliant 2-3x/wk STG Duration 4 weeks MET Mcfp Goal (LTG) Pt will report compliance with HEP 3x/wk to demonstrate ability to participate in independent exercise for maintenance program after discharge from PT LTG Duration 8 weeks Four Impairment AROM, ADLs Impairment unable to put on L shoe Maritime Engineer Goal (LTG) Pt will report that he is able to put on his L shoe in sitting without compensation or reports of low back pain in order to demonstrate improved ability to participate in dressing ADLs 07/14/23: Pt reports that he is able to put on his L shoe ( both shoes in sitting using hip/knee flexion) without pain or difficulty LTG Duration 8 weeks MET Three Impairment hip IR Impairment R hip IR 15 deg Short Term Goal (STG) Pt will increase R hip IR to at least 20 deg in order to demonstrate improved hip mobility STG Duration 4 weeks Maritime Engineer Goal (LTG) Pt will increase R hip IR to at least 25 deg in order to demonstrate improved hip mobility LTG Duration 8 weeks Two Impairment hip ER Impairment L ER AROM 15 deg Short Term Goal (STG) Pt will improve L ER AROM to at least 20 deg in order to demonstrate increased hip mobility to put on his shoes STG Duration 4 weeks Maritime Engineer Goal (LTG) Pt will improve L ER AROM to at least 25 deg in order to demonstrate increased hip mobility to put on his shoes LTG Duration 8 weeks One Impairment hamstring length Impairment R hamstring length 140 deg, L hamstring length 150 deg Short Term Goal (STG) Pt will improve B hamstring length by at least 5 deg ea for improved TKE during gait and to improve overall spinal/ hip mobility for improved activity tolerance STG Duration 4 weeks Maritime Engineer Goal (LTG) Pt will improve B hamstring length by at least 10 deg ea for improved TKE during gait and to improve overall spinal/ hip mobility for improved activity tolerance LTG Duration 8 weeks Assessment Summary Assessment Pt tolerated session well without any increased pain in his hips or low back. Continues to demonstrate decreased mobility of B hips, but R is more limited than L hip. Pt is progressing toward goals and reports significant improvement in both pain levels and activity tolerance since beginning PT. Continued with posterior chain and hip strengthening. Pt demos good hip hinge, but has tendency to maximally flex trunk. Initiated grade II hip mobilizations to improve AROM; pt tolerate well without any pain and reports good gapping in joint. Initiated side steps and progressed resistance of leg press and deadlifts. Pt demos difficulty with eccentric lowering to mesh chair, unable to tap without compensations. Pt would benefit from skilled PT for increased hip mobility, progressive hip and lumbar spine strengthening, and slow progression into activity in order to improve QOL and activity tolerance. Physical Therapy Plan Frequency and Duration Frequency of Treatment 2x/Week Duration of treatment (weeks) 8 Plan of Care Start Date 06/27/23 Plan of Care End Date 08/26/23 Therapeutic Interventions Therapeutic Interventions Aquatic Therapy,Balance Training,Coordination Training ,Gait Training,Home Exercise Program,Joint Mobilizations, Manual Therapy,Neuromuscular Re-education,Orthotic/ Prosthetic Management,Patient/ Caregiver Education,Self-Care/ Home Management,Sensory Integration,Soft Tissue Mobilization,Taping, Therapeutic Activities, Therapeutic Exercises Modalities Biofeedback,Cold Pack/Ice Massage,Electric Stimulation, Hot Packs,Traction- Mechanical ,Ultrasound,Vasopneumatic Devices Other Therapeutic Interventions Manual traction, self traction Next Visit Focus/Plan Next Note Type Treatment Note Next Visit Plan Recheck lift/post chain stretch and added SL bridge, self STMs. Hip stool rotation. Trial step ups, continue with stretching, floor transfers POC: Next session: manual tx to LS paraspinals, glutes, iliacus, psoas, quad, HS; check tolerance to stretches, HEP, STM Continue lumbar spine/hip stretching (knee to chest, ER, IR, HS), initiated mobility ( cat camel, thread needle, seated ball rocking) strengthening Initiate daily foot checks, est HEP/daily exercise and walking program Precautions: no excessive spinal flexion due to anterolisthesis, grade III mob max, limit end range ext
--- NOTE | 2023-07-18 09:00 | PT.OTN ---
Current Diagnoses Low back pain, unspecified (07/18/23) Unspecified abnormalities of gait and mobility (07/18/23) Weakness (07/18/23) Physical Therapy Treatment Note PT-OP-A Visit Information Start: 06/27/23 13:45 Freq: Status: Active Protocol: Document 07/18/23 08:16 NM (Rec: 07/18/23 08:59 NM [id number]) Out-Patient Physical Therapy Visit Information Visit Information Visit Type Treatment Note Visit Note KX after 19 visits Visit Start Time 08:17 Visit Stop Time 08:58 Visit Number 7 Evaluation Information Evaluation Date 06/27/23 PT-OP-B Current Condition Start: 06/27/23 13:45 Freq: Status: Active Protocol: Document 06/27/23 13:46 NM (Rec: 06/27/23 17:22 NM [id number]) Current Condition History of Current Condition Onset Date summer 2022 Current Complaints pain, decreased activity History of Current Condition Pt presents with low back pain . No known RONY. He has a hx of surgery for a pinched nerve he thinks left L3-5, a decade. Surgeon and pt to try conservative care. Pt is concerned that he has arthritis. The pain has worsened throughout 2022, with difficulty performing ADLs. He reports that his pain has significantly improved over the past 2 months but continues to exist. 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 He did have minimal back pain during summer, but it gradually worsened over the fall. Pt reports prn numbness /tingling L over the course of 10 years but none currently. Reports difficulty with sleeping after 6-7 hrs (total 8-10- sleeping on R side, pillow between knees), putting on shoes. He reports that he has been moving very gingerly to prevent. He has had episodic pain about 2 senior ago when shoveling snow, pain for about 2 months. Hx of tight hamstrings; no gym since covid Prior Treatments and Tests Previous PT prior to surgery MRI 04/2023: Ant wedge deformity (L1), Anterolisthesis L4-L5, Degenerative changes Prior Functional Status Baseline Function- ADL's Independent Baseline Function- Mobility Independent Baseline Function- Gait Walk >1 hr Baseline Function- Recreation/Hobbies Bikes miles Baseline Function- Other No difficulty with dressing Current Functional Impairments (Reported) Functional Limitations- ADL's Difficulty with putting on shoes Functional Limitations- Mobility/Gait Limited 1 hr max with gait; stand 1/2 hr before painful; painful sit>stand Functional Limitations- Recreation/ Does not participate due to Hobbies fear of pain Functional Limitations- Other sleeps on R side with pillow between knees for 6-7 hrs before wakes due to pain PT-OP-C Subjective Start: 06/27/23 13:45 Freq: Status: Active Protocol: Document 07/18/23 08:16 NM (Rec: 07/18/23 08:59 NM [id number]) OP-PT Subjective Patient Comments Patient Comments Pt reports he was sore after last treatment, particularly in his R ribs. Reports that he has had pneumonia and is on antibiotics. Reports no low back pain, continues to improve. PT-OP-E Functional Tests Start: 06/27/23 13:45 Freq: Status: Active Protocol: Document 06/27/23 13:46 NM (Rec: 06/27/23 17:22 NM [id number]) Functional Tests 30 Second Sit to Stand Test Score 14 Comments reports no pain with transition to stand, increased flexed trunk PT-OP-F Manual Assessment Start: 06/27/23 13:45 Freq: Status: Active Protocol: Document 06/27/23 13:46 NM (Rec: 06/27/23 17:22 NM [id number]) Manual Assessments Soft Tissue Assessment Soft Tissue Mobility Assessment Bilateral hamstring tightness. Increased tone of lumbar paraspinals, L>R Joint Mobility Assessment Joint Mobility Assessment Hypomobility of thoracic and lumbar spine with P-A springing of spinous processes . Decreased hip ER/IR bilaterally in sitting and supine. Unable to placed L ankle over R knee (e.g. to put on shoes) PT-OP-G Mobility & Gait Start: 06/27/23 13:45 Freq: Status: Active Protocol: Document 06/27/23 13:46 NM (Rec: 06/27/23 17:22 NM [id number]) OP Gait Assessment Gait Gait Assistance Required: Independent Distance (Feet) 200 Assistive Devices Assistive Device None Gait Deviations General Gait Pattern Antalgic,Flexed Trunk,Wide Based Gait Factors Limiting Gait Function Factors Limiting Gait Function Decreased Sensation,Decreased Strength,Poor Balance Comments Gait Comments Decreased trunk rotation with gait, B external rotation of feet, flexed trunk posture; wider FREDY PT-OP-H Neuro Start: 06/27/23 13:45 Freq: Status: Active Protocol: Document 06/27/23 13:46 NM (Rec: 06/27/23 17:22 NM [id number]) Sensation Evaluation Gross Sensation Gross Sensation Left LE Impaired,Right LE Impaired Comments Summary Comments Decreased light touch sensation along dorsal and plantar surfaces of feet; other BLE dermatomes intact PT-OP-J Posture/Palpation/Skin Start: 06/27/23 13:45 Freq: Status: Active Protocol: Document 06/27/23 13:46 NM (Rec: 06/27/23 17:22 NM [id number]) Posture Evaluation Position Standing Evaluation View posterior, lateral Head/C-Spine Posture Forward Head L-Spine Posture Fixed Scoliosis on (R) Shoulder Posture (L) Rounded,(R) Rounded,(L) Elevated Arm Posture (L) Internally Rotated,(R) Internally Rotated Pelvis Posture Anteriorly Tilted,(R) Iliac Crest Superior Weight Distribution Balanced Hip Posture (L) Externally Rotated,(R) Externally Rotated Knee Posture (L) Genu Varus,(R) Genu Varus Patellar Posture (L) Superior,(R) Superior Ankle/Foot Posture (L) Neutral,(R) Neutral Comments Posture Comments Dextroscoliosis lumbar spine Palpation Assessment Location lumbar spine Palpation Location paraspinals, glutes, QL, L1-L5 spinous processes, PSIS, SIJ Palpation Findings Soft Tissue Tightness Palpation Details Tenderness along B PSIS, L>R. No tenderness along spinous or transverse processes of L spine. No tenderness of B SIJ. No tenderness of glutes, hip external rotators, greater trochanter, proximal hamstrings. Increased soft tissue tightness of lumbar paraspinals, QL PT-OP-K Range of Motion Start: 06/27/23 13:45 Freq: Status: Active Protocol: Document 06/27/23 13:46 NM (Rec: 06/27/23 17:22 NM [id number]) Lumbar Spine Range of Motion Lumbar Spine Active Percentage Testing Position Standing Flexion 50 Extension 50 Rotation Left 3 Rotation Right 3 Lateral Flexion Left 50 Lateral Flexion Right 50 ROM Limitations Soft Tissue Tightness,Pain Comments Reports minimal pain/pulling with spinal extension. No pain with rotation or flexion. Demos decreased hamstring length with flexion (to knees) and lateral flexion (to mid lateral thigh) Hip Goniometric Range of Motion Hip right Flexion w/Knee Flexed 110 Straight Leg Raise 80 Internal Rotation 15 External Rotation 25 Comments Hamstring length: 140 deg left Testing Position Supine Flexion w/Knee Flexed 112 Straight Leg Raise 70 Internal Rotation 20 External Rotation 15 Comments Hamstring length: 150 deg; pt reports feels more restricted PT-OP-L Special Tests Start: 06/27/23 13:45 Freq: Status: Active Protocol: Document 06/27/23 13:46 NM (Rec: 06/27/23 17:22 NM [id number]) Special Tests Lumbar Spine Special Tests SIJ Thigh thrust Test Results - SIJ Anterior gapping Test Results - Distraction Test Results + Comments reports relief Pierre/Quadrant Test Results - Comments no local or referred pain with 3D testing Straight Leg Raise Test Results + Slump Test Results + Comments improved with head ext Hip Special Tests NGA Test Results - Comments Unable to perform fully due to ROM limitations on LLE FADIR Test Results - PT-OP-M Strength Start: 06/27/23 13:45 Freq: Status: Active Protocol: Document 06/27/23 13:46 NM (Rec: 06/27/23 17:22 NM [id number]) Trunk Strength Trunk Manual Muscle Testing Testing Position Sitting Flexion 4 Good Extension 4 Good Rotation Left 3+ Fair+ Rotation Right 3+ Fair+ Lateral Flexion Left 3+ Fair+ Lateral Flexion Right 3+ Fair+ Comments No pain with resisted testing. Decreased ability to stabilize against frontal plane resistance Hip Strength Hip Manual Muscle Testing Right Flexion (L2) 4 Good Extension (S1) 4- Good- Abduction 4 Good Adduction 4 Good External Rotation 4- Good- Internal Rotation 4- Good- Comments Low back pain only with resisted extension Left Flexion (L2) 4 Good Extension (S1) 3+ Fair+ Abduction 4 Good Adduction 4 Good External Rotation 4- Good- Internal Rotation 4- Good- Comments Low back pain only with resisted extension Knee Strength Knee Manual Muscle Testing Right Flexion (S2) 4 Good Extension (L3) 4 Good Left Flexion (S2) 4 Good Extension (L3) 4 Good Ankle/Foot Strength Ankle and Foot Manual Muscle Testing Right Dorsiflexion (L4) 4 Good Plantarflexion (S1) 4 Good Left Dorsiflexion (L4) 4 Good Plantarflexion (S1) 4 Good PT-OP-Q Treatments Start: 06/27/23 13:45 Freq: Status: Active Protocol: Document 07/18/23 08:16 NM (Rec: 07/18/23 08:59 NM [id number]) Therapeutic Exercises Supine Exercises bridge Supine Exercise Name trialed again: single leg bridge Side bilateral Resistance AROM Reps/Minutes 1x5 ea Comments cued ppt first, then strong glute lift Prone Exercises pigeon Prone Exercise Name trialed in PT: for increased hip mobility Side bilateral Equipment Used plinth, no trunk flexion Reps/Minutes 1x30 Comments reports good stretch, limited hip mobility child's pose Prone Exercise Name 1. neutral hip, 2. hip ER bias , 3. hip IR bias Side bilateral Resistance AROM Equipment Used plinth Reps/Minutes 5x10 ea Comments demos limited hip mobility Sitting Exercises sciatic nerve glide Sitting Exercise Name with dynamic hamstring stretch in supine Resistance L>R Reps/Minutes 2x30 Comments 90/90 cued Standing Exercises stool hip rotation Standing Exercise Name ER and IR Side bilateral Resistance AROM>lvl 2 tb Equipment Used stool at knee height, ballet bar for UE support Reps/Minutes 1x10 ea> 1x10 ea Comments cued no trunk rotation compensation side steps Standing Exercise Name reviewed in PT Side bilateral Resistance lvl 2 tb around ankles Reps/Minutes 2x20 ft Comments cued for foot clearance, even squat posture entire time Other Exercises quadruped Other Exercise Name hip extension Side bilateral Resistance AROM Reps/Minutes 2x10 ea Comments cued for abdominal draw up/in, level pelvis; medium-hard Self-Care/Home Management Treatment Education Patient Education Home Exercise Program Other Education HEP: single leg bridge, pigeon stretch, quadruped hip extension PT-OP-T Assessment and Plan Start: 06/27/23 13:45 Freq: Status: Active Protocol: Document 07/18/23 08:16 NM (Rec: 07/18/23 08:59 NM [id number]) Physical Therapy Assessment Goals Five Impairment activity tolerance Impairment Pt w/o HEP Short Term Goal (STG) Pt will report compliance with HEP 2-3/wk in order to demonstrate independence and management of symptoms for return to activity 07/14/23: compliant 2-3x/wk STG Duration 4 weeks MET [employer] Goal (LTG) Pt will report compliance with HEP 3x/wk to demonstrate ability to participate in independent exercise for maintenance program after discharge from PT LTG Duration 8 weeks Four Impairment AROM, ADLs Impairment unable to put on L shoe Retirement Goal (LTG) Pt will report that he is able to put on his L shoe in sitting without compensation or reports of low back pain in order to demonstrate improved ability to participate in dressing ADLs 07/14/23: Pt reports that he is able to put on his L shoe ( both shoes in sitting using hip/knee flexion) without pain or difficulty LTG Duration 8 weeks MET Three Impairment hip IR Impairment R hip IR 15 deg Short Term Goal (STG) Pt will increase R hip IR to at least 20 deg in order to demonstrate improved hip mobility STG Duration 4 weeks Retirement Goal (LTG) Pt will increase R hip IR to at least 25 deg in order to demonstrate improved hip mobility LTG Duration 8 weeks Two Impairment hip ER Impairment L ER AROM 15 deg Short Term Goal (STG) Pt will improve L ER AROM to at least 20 deg in order to demonstrate increased hip mobility to put on his shoes STG Duration 4 weeks [employer] Goal (LTG) Pt will improve L ER AROM to at least 25 deg in order to demonstrate increased hip mobility to put on his shoes LTG Duration 8 weeks One Impairment hamstring length Impairment R hamstring length 140 deg, L hamstring length 150 deg Short Term Goal (STG) Pt will improve B hamstring length by at least 5 deg ea for improved TKE during gait and to improve overall spinal/ hip mobility for improved activity tolerance STG Duration 4 weeks Retirement Goal (LTG) Pt will improve B hamstring length by at least 10 deg ea for improved TKE during gait and to improve overall spinal/ hip mobility for improved activity tolerance LTG Duration 8 weeks Assessment Summary Assessment Pt tolerated session well without any increase in low back pain. Initiated hip mobility flexibility exercises and mobilizations to improve hip AROM. Trialed single leg bridges; pt cued for posterior pelvic tilt for increased glute activation. Continues to have limited hamstring length bilaterally, limiting posterior chain flexibility. Pt had good tolerance to hip abduction strengthening in last session, so continued today, cues for squat form to increase glute medius activation. Pt would benefit from skilled PT to address progressive BLE, trunk and core strength/stabilization and posterior chain flexibility in order to return to PLOF. Physical Therapy Plan Frequency and Duration Frequency of Treatment 2x/Week Duration of treatment (weeks) 8 Plan of Care Start Date 06/27/23 Plan of Care End Date 08/26/23 Therapeutic Interventions Therapeutic Interventions Aquatic Therapy,Balance Training,Coordination Training ,Gait Training,Home Exercise Program,Joint Mobilizations, Manual Therapy,Neuromuscular Re-education,Orthotic/ Prosthetic Management,Patient/ Caregiver Education,Self-Care/ Home Management,Sensory Integration,Soft Tissue Mobilization,Taping, Therapeutic Activities, Therapeutic Exercises Modalities Biofeedback,Cold Pack/Ice Massage,Electric Stimulation, Hot Packs,Traction- Mechanical ,Ultrasound,Vasopneumatic Devices Other Therapeutic Interventions Manual traction, self traction Next Visit Focus/Plan Next Note Type Treatment Note Next Visit Plan hip mobilizaions, step up, pallof, chop Recheck lift/post chain stretch and added SL bridge, self STMs. Hip stool rotation. Trial step ups, continue with stretching, floor transfers POC: Next session: manual tx to LS paraspinals, glutes, iliacus, psoas, quad, HS; check tolerance to stretches, HEP, STM Continue lumbar spine/hip stretching (knee to chest, ER, IR, HS), initiated mobility ( cat camel, thread needle, seated ball rocking) strengthening Initiate daily foot checks, est HEP/daily exercise and walking program Precautions: no excessive spinal flexion due to anterolisthesis, grade III mob max, limit end range ext
--- NOTE | 2023-07-22 16:14 | PT.OTN ---
Current Diagnoses Low back pain, unspecified (07/22/23) Unspecified abnormalities of gait and mobility (07/22/23) Weakness (07/22/23) Physical Therapy Treatment Note PT-OP-A Visit Information Start: 06/27/23 13:45 Freq: Status: Active Protocol: Document 07/22/23 10:34 NM (Rec: 07/22/23 11:16 NM [id number]) Out-Patient Physical Therapy Visit Information Visit Information Visit Type Progress Note Visit Note KX after 19 visits Visit Start Time 10:34 Visit Stop Time 08:00 Visit Number 8 Evaluation Information Evaluation Date 06/27/23 PT-OP-B Current Condition Start: 06/27/23 13:45 Freq: Status: Active Protocol: Document 06/27/23 13:46 NM (Rec: 06/27/23 17:22 NM [id number]) Current Condition History of Current Condition Onset Date summer 2022 Current Complaints pain, decreased activity History of Current Condition Pt presents with low back pain . No known RONY. He has a hx of surgery for a pinched nerve he thinks left L3-5, a decade. Surgeon and pt to try conservative care. Pt is concerned that he has arthritis. The pain has worsened throughout 2022, with difficulty performing ADLs. He reports that his pain has significantly improved over the past 2 months but continues to exist. 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 He did have minimal back pain during summer, but it gradually worsened over the fall. Pt reports prn numbness /tingling L over the course of 10 years but none currently. Reports difficulty with sleeping after 6-7 hrs (total 8-10- sleeping on R side, pillow between knees), putting on shoes. He reports that he has been moving very gingerly to prevent. He has had episodic pain about 2 senior ago when shoveling snow, pain for about 2 months. Hx of tight hamstrings; no gym since covid Prior Treatments and Tests Previous PT prior to surgery MRI 04/2023: Ant wedge deformity (L1), Anterolisthesis L4-L5, Degenerative changes Prior Functional Status Baseline Function- ADL's Independent Baseline Function- Mobility Independent Baseline Function- Gait Walk >1 hr Baseline Function- Recreation/Hobbies Bikes miles Baseline Function- Other No difficulty with dressing Current Functional Impairments (Reported) Functional Limitations- ADL's Difficulty with putting on shoes Functional Limitations- Mobility/Gait Limited 1 hr max with gait; stand 1/2 hr before painful; painful sit>stand Functional Limitations- Recreation/ Does not participate due to Hobbies fear of pain Functional Limitations- Other sleeps on R side with pillow between knees for 6-7 hrs before wakes due to pain PT-OP-C Subjective Start: 06/27/23 13:45 Freq: Status: Active Protocol: Document 07/22/23 10:34 NM (Rec: 07/22/23 11:16 NM [id number]) OP-PT Subjective Patient Comments Patient Comments Pt reports 1/10 R glute/ piriformis tightness today. States no low back pain and has not had any. Reports no soreness after last session, good compliance with HEP. Pt reports intense B hamstring pain with single leg bridge. He reports that he has more discomfort in his legs compared to back. PT-OP-E Functional Tests Start: 06/27/23 13:45 Freq: Status: Active Protocol: Document 06/27/23 13:46 NM (Rec: 06/27/23 17:22 NM [id number]) Functional Tests 30 Second Sit to Stand Test Score 14 Comments reports no pain with transition to stand, increased flexed trunk PT-OP-F Manual Assessment Start: 06/27/23 13:45 Freq: Status: Active Protocol: Document 06/27/23 13:46 NM (Rec: 06/27/23 17:22 NM [id number]) Manual Assessments Soft Tissue Assessment Soft Tissue Mobility Assessment Bilateral hamstring tightness. Increased tone of lumbar paraspinals, L>R Joint Mobility Assessment Joint Mobility Assessment Hypomobility of thoracic and lumbar spine with P-A springing of spinous processes . Decreased hip ER/IR bilaterally in sitting and supine. Unable to placed L ankle over R knee (e.g. to put on shoes) PT-OP-G Mobility & Gait Start: 06/27/23 13:45 Freq: Status: Active Protocol: Document 06/27/23 13:46 NM (Rec: 06/27/23 17:22 NM [id number]) OP Gait Assessment Gait Gait Assistance Required: Independent Distance (Feet) 200 Assistive Devices Assistive Device None Gait Deviations General Gait Pattern Antalgic,Flexed Trunk,Wide Based Gait Factors Limiting Gait Function Factors Limiting Gait Function Decreased Sensation,Decreased Strength,Poor Balance Comments Gait Comments Decreased trunk rotation with gait, B external rotation of feet, flexed trunk posture; wider FREDY PT-OP-H Neuro Start: 06/27/23 13:45 Freq: Status: Active Protocol: Document 06/27/23 13:46 NM (Rec: 06/27/23 17:22 NM [id number]) Sensation Evaluation Gross Sensation Gross Sensation Left LE Impaired,Right LE Impaired Comments Summary Comments Decreased light touch sensation along dorsal and plantar surfaces of feet; other BLE dermatomes intact PT-OP-J Posture/Palpation/Skin Start: 06/27/23 13:45 Freq: Status: Active Protocol: Document 06/27/23 13:46 NM (Rec: 06/27/23 17:22 NM [id number]) Posture Evaluation Position Standing Evaluation View posterior, lateral Head/C-Spine Posture Forward Head L-Spine Posture Fixed Scoliosis on (R) Shoulder Posture (L) Rounded,(R) Rounded,(L) Elevated Arm Posture (L) Internally Rotated,(R) Internally Rotated Pelvis Posture Anteriorly Tilted,(R) Iliac Crest Superior Weight Distribution Balanced Hip Posture (L) Externally Rotated,(R) Externally Rotated Knee Posture (L) Genu Varus,(R) Genu Varus Patellar Posture (L) Superior,(R) Superior Ankle/Foot Posture (L) Neutral,(R) Neutral Comments Posture Comments Dextroscoliosis lumbar spine Palpation Assessment Location lumbar spine Palpation Location paraspinals, glutes, QL, L1-L5 spinous processes, PSIS, SIJ Palpation Findings Soft Tissue Tightness Palpation Details Tenderness along B PSIS, L>R. No tenderness along spinous or transverse processes of L spine. No tenderness of B SIJ. No tenderness of glutes, hip external rotators, greater trochanter, proximal hamstrings. Increased soft tissue tightness of lumbar paraspinals, QL PT-OP-K Range of Motion Start: 06/27/23 13:45 Freq: Status: Active Protocol: Document 07/22/23 10:34 NM (Rec: 07/22/23 11:16 NM [id number]) Lumbar Spine Range of Motion Lumbar Spine Active Percentage Testing Position Standing Flexion 50 Extension 50 Rotation Left 3 Rotation Right 3 Lateral Flexion Left 50 Lateral Flexion Right 50 ROM Limitations Soft Tissue Tightness,Pain Comments Reports minimal pain/pulling with spinal extension. No pain with rotation or flexion. Demos decreased hamstring length with flexion (to knees) and lateral flexion (to mid lateral thigh) 07/22/23: 75% flex, 100% ext, 50% B lateral flex, B 5 cm rotation; tightness only in HS with flex, low back with SB but no pain Hip Goniometric Range of Motion Hip right Flexion w/Knee Flexed 110 Straight Leg Raise 80 Internal Rotation 15 External Rotation 25 Comments Hamstring length: 140 deg 07/22/23: IR 22 deg, ER 30 deg left Testing Position Supine Flexion w/Knee Flexed 112 Straight Leg Raise 70 Internal Rotation 20 External Rotation 15 Comments Hamstring length: 150 deg; pt reports feels more restricted 07/22/23: IR 30 deg, ER 25 deg PT-OP-L Special Tests Start: 06/27/23 13:45 Freq: Status: Active Protocol: Document 06/27/23 13:46 NM (Rec: 06/27/23 17:22 NM [id number]) Special Tests Lumbar Spine Special Tests SIJ Thigh thrust Test Results - SIJ Anterior gapping Test Results - Distraction Test Results + Comments reports relief Pierre/Quadrant Test Results - Comments no local or referred pain with 3D testing Straight Leg Raise Test Results + Slump Test Results + Comments improved with head ext Hip Special Tests NGA Test Results - Comments Unable to perform fully due to ROM limitations on LLE FADIR Test Results - PT-OP-M Strength Start: 06/27/23 13:45 Freq: Status: Active Protocol: Document 07/22/23 10:34 NM (Rec: 07/22/23 11:16 NM [id number]) Trunk Strength Trunk Manual Muscle Testing Testing Position Sitting Flexion 4 Good Extension 4 Good Rotation Left 3+ Fair+ Rotation Right 3+ Fair+ Lateral Flexion Left 3+ Fair+ Lateral Flexion Right 3+ Fair+ Comments No pain with resisted testing. Decreased ability to stabilize against frontal plane resistance 07/22/23: 5/5 for all, no pain PT-OP-Q Treatments Start: 06/27/23 13:45 Freq: Status: Active Protocol: Document 07/22/23 10:34 NM (Rec: 07/22/23 11:16 NM [id number]) Therapeutic Exercises Supine Exercises bridge Supine Exercise Name bilateral bridge Side bilateral Resistance AROM Equipment Used with ppt Reps/Minutes 1x5 Comments d/c single leg bridge due to pain; no pain withB bridge Prone Exercises child's pose Prone Exercise Name 1. IR bias, 2. ER bias, 3. lateral flex trunk Side bilateral Resistance AROM Reps/Minutes 1-2. 5x5 ea, 3. 2x30 ea Comments limited hip mobility, pain free Standing Exercises hamstring stretch Standing Exercise Name bottom's up Side bilateral Equipment Used low plinth 15 Reps/Minutes 2x20 sec hold (breaths) Comments pain free but pt reports very tight lat pull down Standing Exercise Name with TrA Side bilateral Resistance lvl 4 blue Reps/Minutes 1x10 Comments cued good tall posture paloff press Standing Exercise Name 1. press (added to HEP), 2. walkout Side bilateral Resistance lvl 2 orange tb Reps/Minutes 1. 1x10 ea, 2. 1x5 ea Comments cued to prevent trunk rot, upright posture; requires increased time step up Standing Exercise Name Trialed and added to HEP:step fwd/back Side bilateral Resistance AROM Equipment Used 1 hand support on rail (flat) Reps/Minutes 1x10 ea 8, 1x10 ea 6 Comments cued for eccentric control with step back; pain free R knee 6 Other Exercises quadruped Other Exercise Name next session soft tissue mobilization Other Exercise Name ball at wall: glute/piriformis Side right Resistance wt shift rolling ball into wall over mm Reps/Minutes 3 min total Comments with MWM hip ER/IR Self-Care/Home Management Treatment Education Patient Education Body Mechanics,Home Exercise Program,Joint Protection Other Education 8 minutes: Educated on joint protection and body mechanics during lifting, ADLs. Extensive discussion about pain neuroscience, symptom centralization vs peripheralization, pt's fear about return to movement related to PLOF. Discontinued single leg bridges due to pain . HEP: pallof, step up. Educated on safety and R knee joint protection during activity to remain pain free PT-OP-T Assessment and Plan Start: 06/27/23 13:45 Freq: Status: Active Protocol: Document 07/22/23 10:34 NM (Rec: 07/22/23 11:16 NM [id number]) Physical Therapy Assessment Goals Five Impairment activity tolerance Impairment Pt w/o HEP Short Term Goal (STG) Pt will report compliance with HEP 2-3/wk in order to demonstrate independence and management of symptoms for return to activity 07/14/23: compliant 2-3x/wk STG Duration 4 weeks MET Long-Term Goal (LTG) Pt will report compliance with HEP 3x/wk to demonstrate ability to participate in independent exercise for maintenance program after discharge from PT LTG Duration 8 weeks Four Impairment AROM, ADLs Impairment unable to put on L shoe Stoner Hand Goal (LTG) Pt will report that he is able to put on his L shoe in sitting without compensation or reports of low back pain in order to demonstrate improved ability to participate in dressing ADLs 07/14/23: Pt reports that he is able to put on his L shoe ( both shoes in sitting using hip/knee flexion) without pain or difficulty LTG Duration 8 weeks MET Three Impairment hip IR Impairment R hip IR 15 deg Short Term Goal (STG) Pt will increase R hip IR to at least 20 deg in order to demonstrate improved hip mobility 07/22/23: 22 deg; 30 deg ER STG Duration 4 weeks MET Stoner Hand Goal (LTG) Pt will increase R hip IR to at least 25 deg in order to demonstrate improved hip mobility LTG Duration 8 weeks Two Impairment hip ER Impairment L ER AROM 15 deg Short Term Goal (STG) Pt will improve L ER AROM to at least 20 deg in order to demonstrate increased hip mobility to put on his shoes 07/22/23: 25 deg ER, 30 deg IR STG Duration 4 weeks MET Long-Term Goal (LTG) Pt will improve L ER AROM to at least 25 deg in order to demonstrate increased hip mobility to put on his shoes 07/22/23: 25 deg ER, 30 deg IR LTG Duration 8 weeks MET One Impairment hamstring length Impairment R hamstring length 140 deg, L hamstring length 150 deg Short Term Goal (STG) Pt will improve B hamstring length by at least 5 deg ea for improved TKE during gait and to improve overall spinal/ hip mobility for improved activity tolerance 07/22/23: 140 deg L, 160 deg R STG Duration 4 weeks PARTIALLY MET Long-Term Goal (LTG) Pt will improve B hamstring length by at least 10 deg ea for improved TKE during gait and to improve overall spinal/ hip mobility for improved activity tolerance LTG Duration 8 weeks Progress Towards Goals Progress Towards Goals Progressing Toward Goals,Goals Met Progress Comments Met 2 LTGS, 2 STGs, partially met last STG Assessment Summary Assessment Pt tolerated session well. Discontinued single leg bridge as part of HEP due to distal hamstring pain. Trialed 6-8 step up, pain free in low back with step up. Cued for eccentric control to prevent compensation and maximize glute/quad control. Initiated paloff press for core stabilization; pt requires cues to prevent trunk rotation . Pt challenged with more dynamic core stabilization, attempts to compensate with trunk. Pain free with lumbar and core stabilization exercises. Pt has been seen x7 visits since IE in June 2023. Since IE, pt reports decrease in low back pain, improvement in activity tolerance. His only compliant is that his lumbar paraspinals and hamstrings continue to feel restricted. Pt has returned to daily ambulation for 1 hour without pain and stationary biking, but he continues to experience limitations in ADLs /IADLs related to pain and weakness. Pt is progressing toward goals. Pt would benefit from skilled PT for progressive lumbar/hip mobility and strengthening, core stabilization, and body mechanics training to improve activity tolerance and return to PLOF. Physical Therapy Plan Frequency and Duration Frequency of Treatment 2x/Week Duration of treatment (weeks) 8 Plan of Care Start Date 06/27/23 Plan of Care End Date 08/26/23 Therapeutic Interventions Therapeutic Interventions Aquatic Therapy,Balance Training,Coordination Training ,Gait Training,Home Exercise Program,Joint Mobilizations, Manual Therapy,Neuromuscular Re-education,Orthotic/ Prosthetic Management,Patient/ Caregiver Education,Self-Care/ Home Management,Sensory Integration,Soft Tissue Mobilization,Taping, Therapeutic Activities, Therapeutic Exercises Modalities Biofeedback,Cold Pack/Ice Massage,Electric Stimulation, Hot Packs,Traction- Mechanical ,Ultrasound,Vasopneumatic Devices Other Therapeutic Interventions Manual traction, self traction Next Visit Focus/Plan Next Note Type Treatment Note Next Visit Plan Next session: hip mobilizaions , step up, pallof, cunningham carry, bird dog vs dying bug, floor transfer Recheck lift/post chain stretch, self STMs. Hip stool rotation. Trial step ups, continue with stretching, floor transfers POC: Next session: manual tx to LS paraspinals, glutes, iliacus, psoas, quad, HS; check tolerance to stretches, HEP, STM Continue lumbar spine/hip stretching (knee to chest, ER, IR, HS), initiated mobility ( cat camel, thread needle, seated ball rocking) strengthening Initiate daily foot checks, est HEP/daily exercise and walking program Precautions: no excessive spinal flexion due to anterolisthesis, grade III mob max, limit end range ext
--- NOTE | 2023-07-26 09:44 | PT.OTN ---
Current Diagnoses Low back pain, unspecified (07/26/23) Unspecified abnormalities of gait and mobility (07/26/23) Weakness (07/26/23) Physical Therapy Treatment Note PT-OP-A Visit Information Start: 06/27/23 13:45 Freq: Status: Active Protocol: Document 07/26/23 09:03 NM (Rec: 07/26/23 09:44 NM [id number]) Out-Patient Physical Therapy Visit Information Visit Information Visit Type Treatment Note Visit Note KX after 19 visits Visit Start Time 09:04 Visit Stop Time 09:43 Visit Number 9 Evaluation Information Evaluation Date 06/27/23 PT-OP-B Current Condition Start: 06/27/23 13:45 Freq: Status: Active Protocol: Document 06/27/23 13:46 NM (Rec: 06/27/23 17:22 NM [id number]) Current Condition History of Current Condition Onset Date summer 2022 Current Complaints pain, decreased activity History of Current Condition Pt presents with low back pain . No known RONY. He has a hx of surgery for a pinched nerve he thinks left L3-5, a decade. Surgeon and pt to try conservative care. Pt is concerned that he has arthritis. The pain has worsened throughout 2022, with difficulty performing ADLs. He reports that his pain has significantly improved over the past 2 months but continues to exist. 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 He did have minimal back pain during summer, but it gradually worsened over the fall. Pt reports prn numbness /tingling L over the course of 10 years but none currently. Reports difficulty with sleeping after 6-7 hrs (total 8-10- sleeping on R side, pillow between knees), putting on shoes. He reports that he has been moving very gingerly to prevent. He has had episodic pain about 2 senior ago when shoveling snow, pain for about 2 months. Hx of tight hamstrings; no gym since covid Prior Treatments and Tests Previous PT prior to surgery MRI 04/2023: Ant wedge deformity (L1), Anterolisthesis L4-L5, Degenerative changes Prior Functional Status Baseline Function- ADL's Independent Baseline Function- Mobility Independent Baseline Function- Gait Walk >1 hr Baseline Function- Recreation/Hobbies Bikes miles Baseline Function- Other No difficulty with dressing Current Functional Impairments (Reported) Functional Limitations- ADL's Difficulty with putting on shoes Functional Limitations- Mobility/Gait Limited 1 hr max with gait; stand 1/2 hr before painful; painful sit>stand Functional Limitations- Recreation/ Does not participate due to Hobbies fear of pain Functional Limitations- Other sleeps on R side with pillow between knees for 6-7 hrs before wakes due to pain PT-OP-C Subjective Start: 06/27/23 13:45 Freq: Status: Active Protocol: Document 07/26/23 09:03 NM (Rec: 07/26/23 09:44 NM [id number]) OP-PT Subjective Patient Comments Patient Comments Pt reports that he had R hip pain near glute/QL starting Tuesday when he woke up, worsening over the day. He reports that it is /10 compared to 10/16 previously. Reports rolling out with ball was helpful. States he had no problem with single leg bridge PT-OP-E Functional Tests Start: 06/27/23 13:45 Freq: Status: Active Protocol: Document 06/27/23 13:46 NM (Rec: 06/27/23 17:22 NM [id number]) Functional Tests 30 Second Sit to Stand Test Score 14 Comments reports no pain with transition to stand, increased flexed trunk PT-OP-F Manual Assessment Start: 06/27/23 13:45 Freq: Status: Active Protocol: Document 06/27/23 13:46 NM (Rec: 06/27/23 17:22 NM [id number]) Manual Assessments Soft Tissue Assessment Soft Tissue Mobility Assessment Bilateral hamstring tightness. Increased tone of lumbar paraspinals, L>R Joint Mobility Assessment Joint Mobility Assessment Hypomobility of thoracic and lumbar spine with P-A springing of spinous processes . Decreased hip ER/IR bilaterally in sitting and supine. Unable to placed L ankle over R knee (e.g. to put on shoes) PT-OP-G Mobility & Gait Start: 06/27/23 13:45 Freq: Status: Active Protocol: Document 06/27/23 13:46 NM (Rec: 06/27/23 17:22 NM [id number]) OP Gait Assessment Gait Gait Assistance Required: Independent Distance (Feet) 200 Assistive Devices Assistive Device None Gait Deviations General Gait Pattern Antalgic,Flexed Trunk,Wide Based Gait Factors Limiting Gait Function Factors Limiting Gait Function Decreased Sensation,Decreased Strength,Poor Balance Comments Gait Comments Decreased trunk rotation with gait, B external rotation of feet, flexed trunk posture; wider FREDY PT-OP-H Neuro Start: 06/27/23 13:45 Freq: Status: Active Protocol: Document 06/27/23 13:46 NM (Rec: 06/27/23 17:22 NM [id number]) Sensation Evaluation Gross Sensation Gross Sensation Left LE Impaired,Right LE Impaired Comments Summary Comments Decreased light touch sensation along dorsal and plantar surfaces of feet; other BLE dermatomes intact PT-OP-J Posture/Palpation/Skin Start: 06/27/23 13:45 Freq: Status: Active Protocol: Document 06/27/23 13:46 NM (Rec: 06/27/23 17:22 NM [id number]) Posture Evaluation Position Standing Evaluation View posterior, lateral Head/C-Spine Posture Forward Head L-Spine Posture Fixed Scoliosis on (R) Shoulder Posture (L) Rounded,(R) Rounded,(L) Elevated Arm Posture (L) Internally Rotated,(R) Internally Rotated Pelvis Posture Anteriorly Tilted,(R) Iliac Crest Superior Weight Distribution Balanced Hip Posture (L) Externally Rotated,(R) Externally Rotated Knee Posture (L) Genu Varus,(R) Genu Varus Patellar Posture (L) Superior,(R) Superior Ankle/Foot Posture (L) Neutral,(R) Neutral Comments Posture Comments Dextroscoliosis lumbar spine Palpation Assessment Location lumbar spine Palpation Location paraspinals, glutes, QL, L1-L5 spinous processes, PSIS, SIJ Palpation Findings Soft Tissue Tightness Palpation Details Tenderness along B PSIS, L>R. No tenderness along spinous or transverse processes of L spine. No tenderness of B SIJ. No tenderness of glutes, hip external rotators, greater trochanter, proximal hamstrings. Increased soft tissue tightness of lumbar paraspinals, QL PT-OP-K Range of Motion Start: 06/27/23 13:45 Freq: Status: Active Protocol: Document 07/22/23 10:34 NM (Rec: 07/22/23 11:16 NM [id number]) Lumbar Spine Range of Motion Lumbar Spine Active Percentage Testing Position Standing Flexion 50 Extension 50 Rotation Left 3 Rotation Right 3 Lateral Flexion Left 50 Lateral Flexion Right 50 ROM Limitations Soft Tissue Tightness,Pain Comments Reports minimal pain/pulling with spinal extension. No pain with rotation or flexion. Demos decreased hamstring length with flexion (to knees) and lateral flexion (to mid lateral thigh) 07/22/23: 75% flex, 100% ext, 50% B lateral flex, B 5 cm rotation; tightness only in HS with flex, low back with SB but no pain Hip Goniometric Range of Motion Hip right Flexion w/Knee Flexed 110 Straight Leg Raise 80 Internal Rotation 15 External Rotation 25 Comments Hamstring length: 140 deg 07/22/23: IR 22 deg, ER 30 deg left Testing Position Supine Flexion w/Knee Flexed 112 Straight Leg Raise 70 Internal Rotation 20 External Rotation 15 Comments Hamstring length: 150 deg; pt reports feels more restricted 07/22/23: IR 30 deg, ER 25 deg PT-OP-L Special Tests Start: 06/27/23 13:45 Freq: Status: Active Protocol: Document 06/27/23 13:46 NM (Rec: 06/27/23 17:22 NM [id number]) Special Tests Lumbar Spine Special Tests SIJ Thigh thrust Test Results - SIJ Anterior gapping Test Results - Distraction Test Results + Comments reports relief Pierre/Quadrant Test Results - Comments no local or referred pain with 3D testing Straight Leg Raise Test Results + Slump Test Results + Comments improved with head ext Hip Special Tests NGA Test Results - Comments Unable to perform fully due to ROM limitations on LLE FADIR Test Results - PT-OP-M Strength Start: 06/27/23 13:45 Freq: Status: Active Protocol: Document 07/22/23 10:34 NM (Rec: 07/22/23 11:16 NM [id number]) Trunk Strength Trunk Manual Muscle Testing Testing Position Sitting Flexion 4 Good Extension 4 Good Rotation Left 3+ Fair+ Rotation Right 3+ Fair+ Lateral Flexion Left 3+ Fair+ Lateral Flexion Right 3+ Fair+ Comments No pain with resisted testing. Decreased ability to stabilize against frontal plane resistance 07/22/23: 5/5 for all, no pain PT-OP-Q Treatments Start: 06/27/23 13:45 Freq: Status: Active Protocol: Document 07/26/23 09:03 NM (Rec: 07/26/23 09:44 NM [id number]) Gym Equipment Shuttle Recovery bilateral squat Details cued TKE w/o locking; no valgus today Resistance 87# 3 [employer] Recovery Platform Stable Reps/Time 2x15 Therapeutic Exercises Standing Exercises carries Standing Exercise Name 1. cunningham carry, 2. air box tester carry Side bilateral Resistance 10# db in 1 hand Reps/Minutes 2x50 ft ea Comments cued upright posture, improved with reps, pain free QL hip hike Standing Exercise Name standing flat on ground, hands on hips, hiking hip Side bilateral Resistance AROM Reps/Minutes 1x10 ea Comments reports no pain lateral touch down Side bilateral Resistance AROM Equipment Used 4 step, hand support Reps/Minutes 2x8 ea Comments reports no pain, cued level pelvis hamstring stretch Standing Exercise Name bottom's up with knee flex/ext Side bilateral Equipment Used >22 Reps/Minutes 1x20 sec hold (breaths) Comments reports min pain upon return to standing, so d/c lat pull down Standing Exercise Name with TrA Side bilateral Resistance lvl 5 purple Reps/Minutes 2x15 Comments cued good tall posture paloff press Standing Exercise Name press Side bilateral Resistance lvl 2 orange tb Reps/Minutes 1x15 ea Comments cued to prevent trunk rot, upright posture step up Standing Exercise Name 6 step up Side bilateral Resistance AROM>5# at ea ankle Equipment Used 2 finger support prn Reps/Minutes 2x12 Comments cued eccentric control with weight Other Exercises soft tissue mobilization Other Exercise Name ball: QL, glute/piriformis Side right Reps/Minutes 3 min total Comments report good relief, trigger point QL PT-OP-T Assessment and Plan Start: 06/27/23 13:45 Freq: Status: Active Protocol: Document 07/26/23 09:03 NM (Rec: 07/26/23 09:44 NM [id number]) Physical Therapy Assessment Goals Five Impairment activity tolerance Impairment Pt w/o HEP Short Term Goal (STG) Pt will report compliance with HEP 2-3/wk in order to demonstrate independence and management of symptoms for return to activity 07/14/23: compliant 2-3x/wk STG Duration 4 weeks [facility] [employer] Goal (LTG) Pt will report compliance with HEP 3x/wk to demonstrate ability to participate in independent exercise for maintenance program after discharge from PT LTG Duration 8 weeks Four Impairment AROM, ADLs Impairment unable to put on L shoe Jail Goal (LTG) Pt will report that he is able to put on his L shoe in sitting without compensation or reports of low back pain in order to demonstrate improved ability to participate in dressing ADLs 3/7/24: Pt reports that he is able to put on his L shoe ( both shoes in sitting using hip/knee flexion) without pain or difficulty LTG Duration 8 weeks MET Three Impairment hip IR Impairment R hip IR 15 deg Short Term Goal (STG) Pt will increase R hip IR to at least 20 deg in order to demonstrate improved hip mobility 07/22/23: 22 deg; 30 deg ER STG Duration 4 weeks MET Jail Goal (LTG) Pt will increase R hip IR to at least 25 deg in order to demonstrate improved hip mobility LTG Duration 8 weeks Two Impairment hip ER Impairment L ER AROM 15 deg Short Term Goal (STG) Pt will improve L ER AROM to at least 20 deg in order to demonstrate increased hip mobility to put on his shoes 07/22/23: 25 deg ER, 30 deg IR STG Duration 4 weeks [facility] [employer] Goal (LTG) Pt will improve L ER AROM to at least 25 deg in order to demonstrate increased hip mobility to put on his shoes 07/22/23: 25 deg ER, 30 deg IR LTG Duration 8 weeks MET One Impairment hamstring length Impairment R hamstring length 140 deg, L hamstring length 150 deg Short Term Goal (STG) Pt will improve B hamstring length by at least 5 deg ea for improved TKE during gait and to improve overall spinal/ hip mobility for improved activity tolerance 07/22/23: 140 deg L, 160 deg R STG Duration 4 weeks PARTIALLY MET Jail Goal (LTG) Pt will improve B hamstring length by at least 10 deg ea for improved TKE during gait and to improve overall spinal/ hip mobility for improved activity tolerance LTG Duration 8 weeks Assessment Summary Assessment Pt tolerated session well, reports decrease in pain symptoms. Initiated QL- targeted strengthening for lumbar stabilization and to address pt reported muscle tightness. Added weighted carries, which pt able to perform without pain; however, requires cues for upright posture to prevent compensations using lateral leaning. Pt reports that his QL feels less restricted after strength exercises. Progressed resistance on leg press; pt cued for TKE to maximize quad and promote increased hamstring length. Pt continues to progress well toward goals and with activity tolerance. Pt would benefit from skilled PT for lumbar and core strengthening, body mechanics training, and return to PLOF. Physical Therapy Plan Frequency and Duration Frequency of Treatment 2x/Week Duration of treatment (weeks) 8 Plan of Care Start Date 06/27/23 Plan of Care End Date 08/26/23 Therapeutic Interventions Therapeutic Interventions Aquatic Therapy,Balance Training,Coordination Training ,Gait Training,Home Exercise Program,Joint Mobilizations, Manual Therapy,Neuromuscular Re-education,Orthotic/ Prosthetic Management,Patient/ Caregiver Education,Self-Care/ Home Management,Sensory Integration,Soft Tissue Mobilization,Taping, Therapeutic Activities, Therapeutic Exercises Modalities Biofeedback,Cold Pack/Ice Massage,Electric Stimulation, Hot Packs,Traction- Mechanical ,Ultrasound,Vasopneumatic Devices Other Therapeutic Interventions Manual traction, self traction Next Visit Focus/Plan Next Note Type Treatment Note Next Visit Plan Next session: QL, strength, hip mobilizaions, step up, pallof, cunningham carry, bird dog vs dying bug, floor transfer Recheck lift/post chain stretch, self STMs. Hip stool rotation. Trial step ups, continue with stretching, floor transfers POC: Next session: manual tx to LS paraspinals, glutes, iliacus, psoas, quad, HS; check tolerance to stretches, HEP, STM Continue lumbar spine/hip stretching (knee to chest, ER, IR, HS), initiated mobility ( cat camel, thread needle, seated ball rocking) strengthening Initiate daily foot checks, est HEP/daily exercise and walking program Precautions: no excessive spinal flexion due to anterolisthesis, grade III mob max, limit end range ext
--- NOTE | 2023-07-27 14:16 | PT-OP ANOTE ---
PT called pt and left voice message that pt's appt tomorrow 07/27 at 9 am will be [employer] vs PT due to change in schedule. Confirmed no other changes in schedule and reminded of appt date/time tomorrow
--- NOTE | 2023-07-28 10:15 | PT.OTN ---
Current Diagnoses Low back pain, unspecified (07/28/23) Unspecified abnormalities of gait and mobility (07/28/23) Weakness (07/28/23) Physical Therapy Treatment Note PT-OP-A Visit Information Start: 06/27/23 13:45 Freq: Status: Active Protocol: Document 07/28/23 08:05 AB (Rec: 07/28/23 10:15 AB [id number]) Out-Patient Physical Therapy Visit Information Visit Information Visit Type Treatment Note Visit Note KX after 19 visits Visit Start Time 09:04 Visit Stop Time 09:51 Visit Number 10 Number of FILM RENTAL CLERK Visits 1 Evaluation Information Evaluation Date 06/27/23 PT-OP-B Current Condition Start: 06/27/23 13:45 Freq: Status: Active Protocol: Document 06/27/23 13:46 NM (Rec: 06/27/23 17:22 NM [id number]) Current Condition History of Current Condition Onset Date summer 2022 Current Complaints pain, decreased activity History of Current Condition Pt presents with low back pain . No known RONY. He has a hx of surgery for a pinched nerve he thinks left L3-5, a decade. Surgeon and pt to try conservative care. Pt is concerned that he has arthritis. The pain has worsened throughout 2022, with difficulty performing ADLs. He reports that his pain has significantly improved over the past 2 months but continues to exist. 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 He did have minimal back pain during summer, but it gradually worsened over the fall. Pt reports prn numbness /tingling L over the course of 10 years but none currently. Reports difficulty with sleeping after 6-7 hrs (total 8-10- sleeping on R side, pillow between knees), putting on shoes. He reports that he has been moving very gingerly to prevent. He has had episodic pain about 2 senior ago when shoveling snow, pain for about 2 months. Hx of tight hamstrings; no gym since covid Prior Treatments and Tests Previous PT prior to surgery MRI 04/2023: Ant wedge deformity (L1), Anterolisthesis L4-L5, Degenerative changes Prior Functional Status Baseline Function- ADL's Independent Baseline Function- Mobility Independent Baseline Function- Gait Walk >1 hr Baseline Function- Recreation/Hobbies Bikes miles Baseline Function- Other No difficulty with dressing Current Functional Impairments (Reported) Functional Limitations- ADL's Difficulty with putting on shoes Functional Limitations- Mobility/Gait Limited 1 hr max with gait; stand 1/2 hr before painful; painful sit>stand Functional Limitations- Recreation/ Does not participate due to Hobbies fear of pain Functional Limitations- Other sleeps on R side with pillow between knees for 6-7 hrs before wakes due to pain PT-OP-C Subjective Start: 06/27/23 13:45 Freq: Status: Active Protocol: Document 07/28/23 08:05 AB (Rec: 07/28/23 10:15 AB [id number]) OP-PT Subjective Patient Comments Patient Comments Patient reports the problem that doen't go away, feels like a hip pointer right sided low back pain. Patient reports overall mobility has improved. Patient reports pain is 4/10 right quadratus area, up to 6/10 end of day. Patient reports the pain wakes him up at night. PT-OP-E Functional Tests Start: 06/27/23 13:45 Freq: Status: Active Protocol: Document 06/27/23 13:46 NM (Rec: 06/27/23 17:22 NM [id number]) Functional Tests 30 Second Sit to Stand Test Score 14 Comments reports no pain with transition to stand, increased flexed trunk PT-OP-F Manual Assessment Start: 06/27/23 13:45 Freq: Status: Active Protocol: Document 06/27/23 13:46 NM (Rec: 06/27/23 17:22 NM [id number]) Manual Assessments Soft Tissue Assessment Soft Tissue Mobility Assessment Bilateral hamstring tightness. Increased tone of lumbar paraspinals, L>R Joint Mobility Assessment Joint Mobility Assessment Hypomobility of thoracic and lumbar spine with P-A springing of spinous processes . Decreased hip ER/IR bilaterally in sitting and supine. Unable to placed L ankle over R knee (e.g. to put on shoes) PT-OP-G Mobility & Gait Start: 06/27/23 13:45 Freq: Status: Active Protocol: Document 06/27/23 13:46 NM (Rec: 06/27/23 17:22 NM [id number]) OP Gait Assessment Gait Gait Assistance Required: Independent Distance (Feet) 200 Assistive Devices Assistive Device None Gait Deviations General Gait Pattern Antalgic,Flexed Trunk,Wide Based Gait Factors Limiting Gait Function Factors Limiting Gait Function Decreased Sensation,Decreased Strength,Poor Balance Comments Gait Comments Decreased trunk rotation with gait, B external rotation of feet, flexed trunk posture; wider FREDY PT-OP-H Neuro Start: 06/27/23 13:45 Freq: Status: Active Protocol: Document 06/27/23 13:46 NM (Rec: 06/27/23 17:22 NM [id number]) Sensation Evaluation Gross Sensation Gross Sensation Left LE Impaired,Right LE Impaired Comments Summary Comments Decreased light touch sensation along dorsal and plantar surfaces of feet; other BLE dermatomes intact PT-OP-J Posture/Palpation/Skin Start: 06/27/23 13:45 Freq: Status: Active Protocol: Document 06/27/23 13:46 NM (Rec: 06/27/23 17:22 NM [id number]) Posture Evaluation Position Standing Evaluation View posterior, lateral Head/C-Spine Posture Forward Head L-Spine Posture Fixed Scoliosis on (R) Shoulder Posture (L) Rounded,(R) Rounded,(L) Elevated Arm Posture (L) Internally Rotated,(R) Internally Rotated Pelvis Posture Anteriorly Tilted,(R) Iliac Crest Superior Weight Distribution Balanced Hip Posture (L) Externally Rotated,(R) Externally Rotated Knee Posture (L) Genu Varus,(R) Genu Varus Patellar Posture (L) Superior,(R) Superior Ankle/Foot Posture (L) Neutral,(R) Neutral Comments Posture Comments Dextroscoliosis lumbar spine Palpation Assessment Location lumbar spine Palpation Location paraspinals, glutes, QL, L1-L5 spinous processes, PSIS, SIJ Palpation Findings Soft Tissue Tightness Palpation Details Tenderness along B PSIS, L>R. No tenderness along spinous or transverse processes of L spine. No tenderness of B SIJ. No tenderness of glutes, hip external rotators, greater trochanter, proximal hamstrings. Increased soft tissue tightness of lumbar paraspinals, QL PT-OP-K Range of Motion Start: 06/27/23 13:45 Freq: Status: Active Protocol: Document 07/22/23 10:34 NM (Rec: 07/22/23 11:16 NM [id number]) Lumbar Spine Range of Motion Lumbar Spine Active Percentage Testing Position Standing Flexion 50 Extension 50 Rotation Left 3 Rotation Right 3 Lateral Flexion Left 50 Lateral Flexion Right 50 ROM Limitations Soft Tissue Tightness,Pain Comments Reports minimal pain/pulling with spinal extension. No pain with rotation or flexion. Demos decreased hamstring length with flexion (to knees) and lateral flexion (to mid lateral thigh) 07/22/23: 75% flex, 100% ext, 50% B lateral flex, B 5 cm rotation; tightness only in HS with flex, low back with SB but no pain Hip Goniometric Range of Motion Hip right Flexion w/Knee Flexed 110 Straight Leg Raise 80 Internal Rotation 15 External Rotation 25 Comments Hamstring length: 140 deg 07/22/23: IR 22 deg, ER 30 deg left Testing Position Supine Flexion w/Knee Flexed 112 Straight Leg Raise 70 Internal Rotation 20 External Rotation 15 Comments Hamstring length: 150 deg; pt reports feels more restricted 07/22/23: IR 30 deg, ER 25 deg PT-OP-L Special Tests Start: 06/27/23 13:45 Freq: Status: Active Protocol: Document 06/27/23 13:46 NM (Rec: 06/27/23 17:22 NM [id number]) Special Tests Lumbar Spine Special Tests SIJ Thigh thrust Test Results - SIJ Anterior gapping Test Results - Distraction Test Results + Comments reports relief Pierre/Quadrant Test Results - Comments no local or referred pain with 3D testing Straight Leg Raise Test Results + Slump Test Results + Comments improved with head ext Hip Special Tests NGA Test Results - Comments Unable to perform fully due to ROM limitations on LLE FADIR Test Results - PT-OP-M Strength Start: 06/27/23 13:45 Freq: Status: Active Protocol: Document 07/22/23 10:34 NM (Rec: 07/22/23 11:16 NM [id number]) Trunk Strength Trunk Manual Muscle Testing Testing Position Sitting Flexion 4 Good Extension 4 Good Rotation Left 3+ Fair+ Rotation Right 3+ Fair+ Lateral Flexion Left 3+ Fair+ Lateral Flexion Right 3+ Fair+ Comments No pain with resisted testing. Decreased ability to stabilize against frontal plane resistance 07/22/23: 5/5 for all, no pain PT-OP-Q Treatments Start: 06/27/23 13:45 Freq: Status: Active Protocol: Document 07/28/23 08:05 AB (Rec: 07/28/23 10:15 AB [id number]) Therapeutic Exercises Supine Exercises abdominal bracing with LE extension Side bilateral Reps/Minutes 2X10 Comments verbal cues to brace with abdominals as LE moves away from core hamstring stretch Supine Exercise Name from hooklying Side bilateral Reps/Minutes 3X right X1 left Shawn stretch Side bilateral Resistance R>L tightness Reps/Minutes 60 Comments with AROM knee flexion piriformis stretch Supine Exercise Name 1. figure 4 with opp LE straight/ ft inside thigh, 2. hip IR stretch bent Side bilateral Reps/Minutes 60 seconds ea Comments reports tightness in back and hip ERs; cued for form Standing Exercises sit to stand Side bilateral Reps/Minutes 2X10 post training Comments Patient ed mech of sit to stand and self tactile cues for hip hinge bottoms up Side bilateral Reps/Minutes 2X10 Comments modified to hands on a pillow resting on a stool/visual cues Therapeutic Activity Therapeutic Activity supine to sit Comments Verbal cues for normal movement pattern vs sit up during transitions during session. Manual Therapy Treatment Soft Tissue Mobilization lumbar paraspinals/quadratus right Mobilization Type Cross-Friction,Rolling, Sustained Pressure Intensity/Depth Moderate Body Position Sidelying Comments Monitored for pain right hamstring Mobilization Type Cross-Friction,Rolling Intensity/Depth Moderate Body Position Sidelying Comments monitored for pain prior to stretch right glute/piriformis Mobilization Type Cross-Friction,Rolling Intensity/Depth Moderate Body Position Sidelying Comments monitored for pain prior to stretch Manual Techniques MET for right AI left PI and pubic shotgun Type MET right AI left PI, pubic shotgun Body Location SI Body Position Hooklying Reps/Duration 6 X 6 sec each Comments Monitored for pain Self-Care/Home Management Treatment Education Other Education discussed importance of daily foot checks, patient advised to purchase a small mirror and place it in sock drawer for a reminder to check daily. Patient made aware that and open area that continues to expand or an area of redness around a scab or open area are signs of concern/ to make the MD aware. Activities Self-Care/Home Management Activities sit to stand with hip hinge and abdominal bracing with LE extension added to HEP. PT-OP-T Assessment and Plan Start: 06/27/23 13:45 Freq: Status: Active Protocol: Document 07/28/23 08:05 AB (Rec: 07/28/23 10:15 AB [id number]) Physical Therapy Assessment Goals Five Impairment activity tolerance Impairment Pt w/o HEP Short Term Goal (STG) Pt will report compliance with HEP 2-3/wk in order to demonstrate independence and management of symptoms for return to activity 07/14/23: compliant 2-3x/wk STG Duration 4 weeks MET Blanker Operator Goal (LTG) Pt will report compliance with HEP 3x/wk to demonstrate ability to participate in independent exercise for maintenance program after discharge from PT LTG Duration 8 weeks Four Impairment AROM, ADLs Impairment unable to put on L shoe Blanker Operator Goal (LTG) Pt will report that he is able to put on his L shoe in sitting without compensation or reports of low back pain in order to demonstrate improved ability to participate in dressing ADLs 07/14/23: Pt reports that he is able to put on his L shoe ( both shoes in sitting using hip/knee flexion) without pain or difficulty LTG Duration 8 weeks MET Three Impairment hip IR Impairment R hip IR 15 deg Short Term Goal (STG) Pt will increase R hip IR to at least 20 deg in order to demonstrate improved hip mobility 07/22/23: 22 deg; 30 deg ER STG Duration 4 weeks MET Blanker Operator Goal (LTG) Pt will increase R hip IR to at least 25 deg in order to demonstrate improved hip mobility LTG Duration 8 weeks Two Impairment hip ER Impairment L ER AROM 15 deg Short Term Goal (STG) Pt will improve L ER AROM to at least 20 deg in order to demonstrate increased hip mobility to put on his shoes 07/22/23: 25 deg ER, 30 deg IR STG Duration 4 weeks MET [facility] Goal (LTG) Pt will improve L ER AROM to at least 25 deg in order to demonstrate increased hip mobility to put on his shoes 07/22/23: 25 deg ER, 30 deg IR LTG Duration 8 weeks MET One Impairment hamstring length Impairment R hamstring length 140 deg, L hamstring length 150 deg Short Term Goal (STG) Pt will improve B hamstring length by at least 5 deg ea for improved TKE during gait and to improve overall spinal/ hip mobility for improved activity tolerance 07/22/23: 140 deg L, 160 deg R STG Duration 4 weeks PARTIALLY MET Blanker Operator Goal (LTG) Pt will improve B hamstring length by at least 10 deg ea for improved TKE during gait and to improve overall spinal/ hip mobility for improved activity tolerance LTG Duration 8 weeks Assessment Summary Assessment Patient rates right sided back pain 07/16 end of session. Oniel was able to transfer sit to stand with improved hip hinge. Physical Therapy Plan Frequency and Duration Frequency of Treatment 2x/Week Duration of treatment (weeks) 8 Plan of Care Start Date 06/27/23 Plan of Care End Date 08/26/23 Next Visit Focus/Plan Next Note Type Treatment Note Next Visit Plan Next session: Assess aye to previous session and additional HEP exercises, QL, strength, hip mobilizaions, step up, pallof, cunningham carry, bird dog vs dying bug, floor transfer Recheck lift/post chain stretch, self STMs. Hip stool rotation. Trial step ups, continue with stretching, floor transfers POC: Next session: manual tx to LS paraspinals, glutes, iliacus, psoas, quad, HS; check tolerance to stretches, HEP, STM Continue lumbar spine/hip stretching (knee to chest, ER, IR, HS), initiated mobility ( cat camel, thread needle, seated ball rocking) strengthening Initiate daily foot checks, est HEP/daily exercise and walking program Precautions: no excessive spinal flexion due to anterolisthesis, grade III mob max, limit end range ext
--- NOTE | 2023-07-28 10:29 | PT.OTN ---
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 No known RONY. He has a hx of surgery for a pinched nerve he thinks left L3-5, a decade. Surgeon and pt to try conservative care. Pt is concerned that he has arthritis. The pain has worsened throughout 2022, with difficulty performing ADLs. He reports that his pain has significantly improved over the past 2 months but continues to exist. 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 He did have minimal back pain during summer, but it gradually worsened over the fall. Pt reports prn numbness /tingling L over the course of 10 years but none currently. Reports difficulty with sleeping after 6-7 hrs (total 8-10- sleeping on R side, pillow between knees), putting on shoes. He reports that he has been moving very gingerly to prevent. He has had episodic pain about 2 senior ago when shoveling snow, pain for about 2 months. Hx of tight hamstrings; no gym since covid Prior Treatments and Tests Previous PT prior to surgery MRI 04/2023: Ant wedge deformity (L1), Anterolisthesis L4-L5, Degenerative changes Prior Functional Status Baseline Function- ADL's Independent Baseline Function- Mobility Independent Baseline Function- Gait Walk >1 hr Baseline Function- Recreation/Hobbies Bikes miles Baseline Function- Other No difficulty with dressing Current Functional Impairments (Reported) Functional Limitations- ADL's Difficulty with putting on shoes Functional Limitations- Mobility/Gait Limited 1 hr max with gait; stand 1/2 hr before painful; painful sit>stand Functional Limitations- Recreation/ Does not participate due to Hobbies fear of pain Functional Limitations- Other sleeps on R side with pillow between knees for 6-7 hrs before wakes due to pain PT-OP-C Subjective Start: 06/27/23 13:45 Freq: Status: Active Protocol: Document 07/28/23 08:05 AB (Rec: 07/28/23 10:15 AB [id number]) OP-PT Subjective Patient Comments Patient Comments Patient reports the problem that doen't go away, feels like a hip pointer right sided low back pain. Patient reports overall mobility has improved. Patient reports pain is 4/10 right quadratus area, up to 6/10 end of day. Patient reports the pain wakes him up at night. PT-OP-E Functional Tests Start: 06/27/23 13:45 Freq: Status: Active Protocol: Document 06/27/23 13:46 NM (Rec: 06/27/23 17:22 NM [id number]) Functional Tests 30 Second Sit to Stand Test Score 14 Comments reports no pain with transition to stand, increased flexed trunk PT-OP-F Manual Assessment Start: 06/27/23 13:45 Freq: Status: Active Protocol: Document 06/27/23 13:46 NM (Rec: 06/27/23 17:22 NM [id number]) Manual Assessments Soft Tissue Assessment Soft Tissue Mobility Assessment Bilateral hamstring tightness. Increased tone of lumbar paraspinals, L>R Joint Mobility Assessment Joint Mobility Assessment Hypomobility of thoracic and lumbar spine with P-A springing of spinous processes . Decreased hip ER/IR bilaterally in sitting and supine. Unable to placed L ankle over R knee (e.g. to put on shoes) PT-OP-G Mobility & Gait Start: 06/27/23 13:45 Freq: Status: Active Protocol: Document 06/27/23 13:46 NM (Rec: 06/27/23 17:22 NM [id number]) OP Gait Assessment Gait Gait Assistance Required: Independent Distance (Feet) 200 Assistive Devices Assistive Device None Gait Deviations General Gait Pattern Antalgic,Flexed Trunk,Wide Based Gait Factors Limiting Gait Function Factors Limiting Gait Function Decreased Sensation,Decreased Strength,Poor Balance Comments Gait Comments Decreased trunk rotation with gait, B external rotation of feet, flexed trunk posture; wider FREDY PT-OP-H Neuro Start: 06/27/23 13:45 Freq: Status: Active Protocol: Document 06/27/23 13:46 NM (Rec: 06/27/23 17:22 NM [id number]) Sensation Evaluation Gross Sensation Gross Sensation Left LE Impaired,Right LE Impaired Comments Summary Comments Decreased light touch sensation along dorsal and plantar surfaces of feet; other BLE dermatomes intact PT-OP-J Posture/Palpation/Skin Start: 06/27/23 13:45 Freq: Status: Active Protocol: Document 06/27/23 13:46 NM (Rec: 06/27/23 17:22 NM [id number]) Posture Evaluation Position Standing Evaluation View posterior, lateral Head/C-Spine Posture Forward Head L-Spine Posture Fixed Scoliosis on (R) Shoulder Posture (L) Rounded,(R) Rounded,(L) Elevated Arm Posture (L) Internally Rotated,(R) Internally Rotated Pelvis Posture Anteriorly Tilted,(R) Iliac Crest Superior Weight Distribution Balanced Hip Posture (L) Externally Rotated,(R) Externally Rotated Knee Posture (L) Genu Varus,(R) Genu Varus Patellar Posture (L) Superior,(R) Superior Ankle/Foot Posture (L) Neutral,(R) Neutral Comments Posture Comments Dextroscoliosis lumbar spine Palpation Assessment Location lumbar spine Palpation Location paraspinals, glutes, QL, L1-L5 spinous processes, PSIS, SIJ Palpation Findings Soft Tissue Tightness Palpation Details Tenderness along B PSIS, L>R. No tenderness along spinous or transverse processes of L spine. No tenderness of B SIJ. No tenderness of glutes, hip external rotators, greater trochanter, proximal hamstrings. Increased soft tissue tightness of lumbar paraspinals, QL PT-OP-K Range of Motion Start: 06/27/23 13:45 Freq: Status: Active Protocol: Document 07/22/23 10:34 NM (Rec: 07/22/23 11:16 NM [id number]) Lumbar Spine Range of Motion Lumbar Spine Active Percentage Testing Position Standing Flexion 50 Extension 50 Rotation Left 3 Rotation Right 3 Lateral Flexion Left 50 Lateral Flexion Right 50 ROM Limitations Soft Tissue Tightness,Pain Comments Reports minimal pain/pulling with spinal extension. No pain with rotation or flexion. Demos decreased hamstring length with flexion (to knees) and lateral flexion (to mid lateral thigh) 07/22/23: 75% flex, 100% ext, 50% B lateral flex, B 5 cm rotation; tightness only in HS with flex, low back with SB but no pain Hip Goniometric Range of Motion Hip right Flexion w/Knee Flexed 110 Straight Leg Raise 80 Internal Rotation 15 External Rotation 25 Comments Hamstring length: 140 deg 07/22/23: IR 22 deg, ER 30 deg left Testing Position Supine Flexion w/Knee Flexed 112 Straight Leg Raise 70 Internal Rotation 20 External Rotation 15 Comments Hamstring length: 150 deg; pt reports feels more restricted 07/22/23: IR 30 deg, ER 25 deg PT-OP-L Special Tests Start: 06/27/23 13:45 Freq: Status: Active Protocol: Document 06/27/23 13:46 NM (Rec: 06/27/23 17:22 NM [id number]) Special Tests Lumbar Spine Special Tests SIJ Thigh thrust Test Results - SIJ Anterior gapping Test Results - Distraction Test Results + Comments reports relief Pierre/Quadrant Test Results - Comments no local or referred pain with 3D testing Straight Leg Raise Test Results + Slump Test Results + Comments improved with head ext Hip Special Tests NGA Test Results - Comments Unable to perform fully due to ROM limitations on LLE FADIR Test Results - PT-OP-M Strength Start: 06/27/23 13:45 Freq: Status: Active Protocol: Document 07/22/23 10:34 NM (Rec: 07/22/23 11:16 NM [id number]) Trunk Strength Trunk Manual Muscle Testing Testing Position Sitting Flexion 4 Good Extension 4 Good Rotation Left 3+ Fair+ Rotation Right 3+ Fair+ Lateral Flexion Left 3+ Fair+ Lateral Flexion Right 3+ Fair+ Comments No pain with resisted testing. Decreased ability to stabilize against frontal plane resistance 07/22/23: 5/5 for all, no pain PT-OP-Q Treatments Start: 06/27/23 13:45 Freq: Status: Active Protocol: Document 07/28/23 08:05 AB (Rec: 07/28/23 10:15 AB [id number]) Therapeutic Exercises Supine Exercises abdominal bracing with LE extension Side bilateral Reps/Minutes 2X10 Comments verbal cues to brace with abdominals as LE moves away from core hamstring stretch Supine Exercise Name from hooklying Side bilateral Reps/Minutes 3X right X1 left Shawn stretch Side bilateral Resistance R>L tightness Reps/Minutes 60 Comments with AROM knee flexion piriformis stretch Supine Exercise Name 1. figure 4 with opp LE straight/ ft inside thigh, 2. hip IR stretch bent Side bilateral Reps/Minutes 60 seconds ea Comments reports tightness in back and hip ERs; cued for form Standing Exercises sit to stand Side bilateral Reps/Minutes 2X10 post training Comments Patient ed mech of sit to stand and self tactile cues for hip hinge bottoms up Side bilateral Reps/Minutes 2X10 Comments modified to hands on a pillow resting on a stool/visual cues Therapeutic Activity Therapeutic Activity supine to sit Comments Verbal cues for normal movement pattern vs sit up during transitions during session. Manual Therapy Treatment Soft Tissue Mobilization lumbar paraspinals/quadratus right Mobilization Type Cross-Friction,Rolling, Sustained Pressure Intensity/Depth Moderate Body Position Sidelying Comments Monitored for pain right hamstring Mobilization Type Cross-Friction,Rolling Intensity/Depth Moderate Body Position Sidelying Comments monitored for pain prior to stretch right glute/piriformis Mobilization Type Cross-Friction,Rolling Intensity/Depth Moderate Body Position Sidelying Comments monitored for pain prior to stretch Manual Techniques MET for right AI left PI and pubic shotgun Type MET right AI left PI, pubic shotgun Body Location SI Body Position Hooklying Reps/Duration 6 X 6 sec each Comments Monitored for pain Self-Care/Home Management Treatment Education Other Education discussed importance of daily foot checks, patient advised to purchase a small mirror and place it in sock drawer for a reminder to check daily. Patient made aware that and open area that continues to expand or an area of redness around a scab or open area are signs of concern/ to make the MD aware. Activities Self-Care/Home Management Activities sit to stand with hip hinge and abdominal bracing with LE extension added to HEP. PT-OP-T Assessment and Plan Start: 06/27/23 13:45 Freq: Status: Active Protocol: Document 07/28/23 08:05 AB (Rec: 07/28/23 10:15 AB [id number]) Physical Therapy Assessment Goals Five Impairment activity tolerance Impairment Pt w/o HEP Short Term Goal (STG) Pt will report compliance with HEP 2-3/wk in order to demonstrate independence and management of symptoms for return to activity 07/14/23: compliant 2-3x/wk STG Duration 4 weeks MET Halfway Goal (LTG) Pt will report compliance with HEP 3x/wk to demonstrate ability to participate in independent exercise for maintenance program after discharge from PT LTG Duration 8 weeks Four Impairment AROM, ADLs Impairment unable to put on L shoe Stand Up Forklift Operator Goal (LTG) Pt will report that he is able to put on his L shoe in sitting without compensation or reports of low back pain in order to demonstrate improved ability to participate in dressing ADLs 07/14/23: Pt reports that he is able to put on his L shoe ( both shoes in sitting using hip/knee flexion) without pain or difficulty LTG Duration 8 weeks MET Three Impairment hip IR Impairment R hip IR 15 deg Short Term Goal (STG) Pt will increase R hip IR to at least 20 deg in order to demonstrate improved hip mobility 07/22/23: 22 deg; 30 deg ER STG Duration 4 weeks MET Halfway Goal (LTG) Pt will increase R hip IR to at least 25 deg in order to demonstrate improved hip mobility LTG Duration 8 weeks Two Impairment hip ER Impairment L ER AROM 15 deg Short Term Goal (STG) Pt will improve L ER AROM to at least 20 deg in order to demonstrate increased hip mobility to put on his shoes 07/22/23: 25 deg ER, 30 deg IR STG Duration 4 weeks MET Halfway Goal (LTG) Pt will improve L ER AROM to at least 25 deg in order to demonstrate increased hip mobility to put on his shoes 07/22/23: 25 deg ER, 30 deg IR LTG Duration 8 weeks MET One Impairment hamstring length Impairment R hamstring length 140 deg, L hamstring length 150 deg Short Term Goal (STG) Pt will improve B hamstring length by at least 5 deg ea for improved TKE during gait and to improve overall spinal/ hip mobility for improved activity tolerance 07/22/23: 140 deg L, 160 deg R STG Duration 4 weeks PARTIALLY MET Halfway Goal (LTG) Pt will improve B hamstring length by at least 10 deg ea for improved TKE during gait and to improve overall spinal/ hip mobility for improved activity tolerance LTG Duration 8 weeks Assessment Summary Assessment Patient rates right sided back pain 07/16 end of session. Oniel was able to transfer sit to stand with improved hip hinge. Physical Therapy Plan Frequency and Duration Frequency of Treatment 2x/Week Duration of treatment (weeks) 8 Plan of Care Start Date 06/27/23 Plan of Care End Date 08/26/23 Next Visit Focus/Plan Next Note Type Treatment Note Next Visit Plan Next session: Assess aye to previous session and additional HEP exercises, QL, strength, hip mobilizaions, step up, pallof, cunningham carry, bird dog vs dying bug, floor transfer Recheck lift/post chain stretch, self STMs. Hip stool rotation. Trial step ups, continue with stretching, floor transfers POC: Next session: manual tx to LS paraspinals, glutes, iliacus, psoas, quad, HS; check tolerance to stretches, HEP, STM Continue lumbar spine/hip stretching (knee to chest, ER, IR, HS), initiated mobility ( cat camel, thread needle, seated ball rocking) strengthening Initiate daily foot checks, est HEP/daily exercise and walking program Precautions: no excessive spinal flexion due to anterolisthesis, grade III mob max, limit end range ext
--- NOTE | 2023-08-12 09:46 | PT.OTN ---
Current Diagnoses Low back pain, unspecified (08/12/23) Unspecified abnormalities of gait and mobility (08/12/23) Weakness (08/12/23) Physical Therapy Treatment Note PT-OP-A Visit Information Start: 06/27/23 13:45 Freq: Status: Active Protocol: Document 08/12/23 09:03 NM (Rec: 08/12/23 09:46 NM [id number]) Out-Patient Physical Therapy Visit Information Visit Information Visit Type Treatment Note Visit Note KX after 19 visits Visit Start Time 09:03 Visit Stop Time 09:45 Visit Number 11 Evaluation Information Evaluation Date 06/27/23 PT-OP-B Current Condition Start: 06/27/23 13:45 Freq: Status: Active Protocol: Document 06/27/23 13:46 NM (Rec: 06/27/23 17:22 NM [id number]) Current Condition History of Current Condition Onset Date summer 2022 Current Complaints pain, decreased activity History of Current Condition Pt presents with low back pain . No known RONY. He has a hx of surgery for a pinched nerve he thinks left L3-5, a decade. Surgeon and pt to try conservative care. Pt is concerned that he has arthritis. The pain has worsened throughout 2022, with difficulty performing ADLs. He reports that his pain has significantly improved over the past 2 months but continues to exist. 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 He did have minimal back pain during summer, but it gradually worsened over the fall. Pt reports prn numbness /tingling L over the course of 10 years but none currently. Reports difficulty with sleeping after 6-7 hrs (total 8-10- sleeping on R side, pillow between knees), putting on shoes. He reports that he has been moving very gingerly to prevent. He has had episodic pain about 2 senior ago when shoveling snow, pain for about 2 months. Hx of tight hamstrings; no gym since covid Prior Treatments and Tests Previous PT prior to surgery MRI 04/2023: Ant wedge deformity (L1), Anterolisthesis L4-L5, Degenerative changes Prior Functional Status Baseline Function- ADL's Independent Baseline Function- Mobility Independent Baseline Function- Gait Walk >1 hr Baseline Function- Recreation/Hobbies Bikes miles Baseline Function- Other No difficulty with dressing Current Functional Impairments (Reported) Functional Limitations- ADL's Difficulty with putting on shoes Functional Limitations- Mobility/Gait Limited 1 hr max with gait; stand 1/2 hr before painful; painful sit>stand Functional Limitations- Recreation/ Does not participate due to Hobbies fear of pain Functional Limitations- Other sleeps on R side with pillow between knees for 6-7 hrs before wakes due to pain PT-OP-C Subjective Start: 06/27/23 13:45 Freq: Status: Active Protocol: Document 08/12/23 09:03 NM (Rec: 08/12/23 09:46 NM [id number]) OP-PT Subjective Patient Comments Patient Comments Pt reports that he is having a set back in pain levels (5-6/ 10 today, 7/10). 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 He reports that he is having difficulty getting out of bed/ chairs again. Reports that pain almost disappears when working, but returns toward end of the day, worse at night . He has R sided discomfort in back above the hip. After last visit, reports that back was hurting more. PT-OP-E Functional Tests Start: 06/27/23 13:45 Freq: Status: Active Protocol: Document 06/27/23 13:46 NM (Rec: 06/27/23 17:22 NM [id number]) Functional Tests 30 Second Sit to Stand Test Score 14 Comments reports no pain with transition to stand, increased flexed trunk PT-OP-F Manual Assessment Start: 06/27/23 13:45 Freq: Status: Active Protocol: Document 06/27/23 13:46 NM (Rec: 06/27/23 17:22 NM [id number]) Manual Assessments Soft Tissue Assessment Soft Tissue Mobility Assessment Bilateral hamstring tightness. Increased tone of lumbar paraspinals, L>R Joint Mobility Assessment Joint Mobility Assessment Hypomobility of thoracic and lumbar spine with P-A springing of spinous processes . Decreased hip ER/IR bilaterally in sitting and supine. Unable to placed L ankle over R knee (e.g. to put on shoes) PT-OP-G Mobility & Gait Start: 06/27/23 13:45 Freq: Status: Active Protocol: Document 06/27/23 13:46 NM (Rec: 06/27/23 17:22 NM [id number]) OP Gait Assessment Gait Gait Assistance Required: Independent Distance (Feet) 200 Assistive Devices Assistive Device None Gait Deviations General Gait Pattern Antalgic,Flexed Trunk,Wide Based Gait Factors Limiting Gait Function Factors Limiting Gait Function Decreased Sensation,Decreased Strength,Poor Balance Comments Gait Comments Decreased trunk rotation with gait, B external rotation of feet, flexed trunk posture; wider FREDY PT-OP-H Neuro Start: 06/27/23 13:45 Freq: Status: Active Protocol: Document 06/27/23 13:46 NM (Rec: 06/27/23 17:22 NM [id number]) Sensation Evaluation Gross Sensation Gross Sensation Left LE Impaired,Right LE Impaired Comments Summary Comments Decreased light touch sensation along dorsal and plantar surfaces of feet; other BLE dermatomes intact PT-OP-J Posture/Palpation/Skin Start: 06/27/23 13:45 Freq: Status: Active Protocol: Document 06/27/23 13:46 NM (Rec: 06/27/23 17:22 NM [id number]) Posture Evaluation Position Standing Evaluation View posterior, lateral Head/C-Spine Posture Forward Head L-Spine Posture Fixed Scoliosis on (R) Shoulder Posture (L) Rounded,(R) Rounded,(L) Elevated Arm Posture (L) Internally Rotated,(R) Internally Rotated Pelvis Posture Anteriorly Tilted,(R) Iliac Crest Superior Weight Distribution Balanced Hip Posture (L) Externally Rotated,(R) Externally Rotated Knee Posture (L) Genu Varus,(R) Genu Varus Patellar Posture (L) Superior,(R) Superior Ankle/Foot Posture (L) Neutral,(R) Neutral Comments Posture Comments Dextroscoliosis lumbar spine Palpation Assessment Location lumbar spine Palpation Location paraspinals, glutes, QL, L1-L5 spinous processes, PSIS, SIJ Palpation Findings Soft Tissue Tightness Palpation Details Tenderness along B PSIS, L>R. No tenderness along spinous or transverse processes of L spine. No tenderness of B SIJ. No tenderness of glutes, hip external rotators, greater trochanter, proximal hamstrings. Increased soft tissue tightness of lumbar paraspinals, QL PT-OP-K Range of Motion Start: 06/27/23 13:45 Freq: Status: Active Protocol: Document 07/22/23 10:34 NM (Rec: 07/22/23 11:16 NM [id number]) Lumbar Spine Range of Motion Lumbar Spine Active Percentage Testing Position Standing Flexion 50 Extension 50 Rotation Left 3 Rotation Right 3 Lateral Flexion Left 50 Lateral Flexion Right 50 ROM Limitations Soft Tissue Tightness,Pain Comments Reports minimal pain/pulling with spinal extension. No pain with rotation or flexion. Demos decreased hamstring length with flexion (to knees) and lateral flexion (to mid lateral thigh) 07/22/23: 75% flex, 100% ext, 50% B lateral flex, B 5 cm rotation; tightness only in HS with flex, low back with SB but no pain Hip Goniometric Range of Motion Hip right Flexion w/Knee Flexed 110 Straight Leg Raise 80 Internal Rotation 15 External Rotation 25 Comments Hamstring length: 140 deg 07/22/23: IR 22 deg, ER 30 deg left Testing Position Supine Flexion w/Knee Flexed 112 Straight Leg Raise 70 Internal Rotation 20 External Rotation 15 Comments Hamstring length: 150 deg; pt reports feels more restricted 07/22/23: IR 30 deg, ER 25 deg PT-OP-L Special Tests Start: 06/27/23 13:45 Freq: Status: Active Protocol: Document 06/27/23 13:46 NM (Rec: 06/27/23 17:22 NM [id number]) Special Tests Lumbar Spine Special Tests SIJ Thigh thrust Test Results - SIJ Anterior gapping Test Results - Distraction Test Results + Comments reports relief Pierre/Quadrant Test Results - Comments no local or referred pain with 3D testing Straight Leg Raise Test Results + Slump Test Results + Comments improved with head ext Hip Special Tests NGA Test Results - Comments Unable to perform fully due to ROM limitations on LLE FADIR Test Results - PT-OP-M Strength Start: 06/27/23 13:45 Freq: Status: Active Protocol: Document 07/22/23 10:34 NM (Rec: 07/22/23 11:16 NM [id number]) Trunk Strength Trunk Manual Muscle Testing Testing Position Sitting Flexion 4 Good Extension 4 Good Rotation Left 3+ Fair+ Rotation Right 3+ Fair+ Lateral Flexion Left 3+ Fair+ Lateral Flexion Right 3+ Fair+ Comments No pain with resisted testing. Decreased ability to stabilize against frontal plane resistance 07/22/23: 5/5 for all, no pain PT-OP-Q Treatments Start: 06/27/23 13:45 Freq: Status: Active Protocol: Document 08/12/23 09:03 NM (Rec: 08/12/23 09:46 NM [id number]) Therapeutic Exercises Supine Exercises bridge Supine Exercise Name single leg bridge Side bilateral Reps/Minutes 2x8 ea Comments pain free, min cramps w/ increased reps, R back pain improve w/ reps piriformis stretch Supine Exercise Name 1. figure 4 with opp LE straight/ ft inside thigh, 2. hip IR stretch bent Side bilateral Reps/Minutes 60 seconds ea Comments Reports R sided tightness Standing Exercises sit to stand Side bilateral Resistance 8# tball Equipment Used lvl 3 band around thighs Reps/Minutes 2x10 Comments improved hip hinge; cued eccentric control, pain free side steps Standing Exercise Name reviewed in PT Side bilateral Resistance lvl 3 tb around thighs Reps/Minutes 2x20 ft Comments cued for upright posture, neutral foot rotation Manual Therapy Treatment Soft Tissue Mobilization lumbar paraspinals/quadratus right Mobilization Type Cross-Friction,Rolling, Sustained Pressure Intensity/Depth Moderate Body Position Sidelying Comments Monitored for pain, R sided tightness and pain along paraspinals and QL. Performed in L sidelying with lengthening at ribs/pelvis right hamstring Body Location performed bilaterally Mobilization Type Cross-Friction,Instrument Assisted,Rolling Intensity/Depth Moderate Body Position Sidelying Comments monitored for pain. Increased R hamstring tightness compared to L side prior to stretch Manual Techniques stretching Type HS stretch Body Position Supine Reps/Duration 1x60 ea Comments monitored for pain, more limited R side than L side Self-Care/Home Management Treatment Education Patient Education Body Mechanics,Joint Protection,Pain Management Other Education 7 minutes- Education typical OA progression throughout day. Education on performing light activity during day, but not overdoing it, listening to body's limitations. Edu that muscle soreness related to activity should last <24 hours . Education and demonstration of log roll, transfer in/out of bed PT-OP-T Assessment and Plan Start: 06/27/23 13:45 Freq: Status: Active Protocol: Document 08/12/23 09:03 NM (Rec: 08/12/23 09:46 NM [id number]) Physical Therapy Assessment Goals Five Impairment activity tolerance Impairment Pt w/o HEP Short Term Goal (STG) Pt will report compliance with HEP 2-3/wk in order to demonstrate independence and management of symptoms for return to activity 07/14/23: compliant 2-3x/wk STG Duration 4 weeks [facility] Nursing Home Goal (LTG) Pt will report compliance with HEP 3x/wk to demonstrate ability to participate in independent exercise for maintenance program after discharge from PT LTG Duration 8 weeks Four Impairment AROM, ADLs Impairment unable to put on L shoe Nursing Home Goal (LTG) Pt will report that he is able to put on his L shoe in sitting without compensation or reports of low back pain in order to demonstrate improved ability to participate in dressing ADLs 07/14/23: Pt reports that he is able to put on his L shoe ( both shoes in sitting using hip/knee flexion) without pain or difficulty LTG Duration 8 weeks MET Three Impairment hip IR Impairment R hip IR 15 deg Short Term Goal (STG) Pt will increase R hip IR to at least 20 deg in order to demonstrate improved hip mobility 07/22/23: 22 deg; 30 deg ER STG Duration 4 weeks [facility] Nursing Home Goal (LTG) Pt will increase R hip IR to at least 25 deg in order to demonstrate improved hip mobility LTG Duration 8 weeks Two Impairment hip ER Impairment L ER AROM 15 deg Short Term Goal (STG) Pt will improve L ER AROM to at least 20 deg in order to demonstrate increased hip mobility to put on his shoes 07/22/23: 25 deg ER, 30 deg IR STG Duration 4 weeks [facility] Home Goal (LTG) Pt will improve L ER AROM to at least 25 deg in order to demonstrate increased hip mobility to put on his shoes 07/22/23: 25 deg ER, 30 deg IR LTG Duration 8 weeks MET One Impairment hamstring length Impairment R hamstring length 140 deg, L hamstring length 150 deg Short Term Goal (STG) Pt will improve B hamstring length by at least 5 deg ea for improved TKE during gait and to improve overall spinal/ hip mobility for improved activity tolerance 07/22/23: 140 deg L, 160 deg R STG Duration 4 weeks PARTIALLY MET Nursing Home Goal (LTG) Pt will improve B hamstring length by at least 10 deg ea for improved TKE during gait and to improve overall spinal/ hip mobility for improved activity tolerance 08/12/23: 160 deg B LTG Duration 8 weeks Assessment Summary Assessment Pt presents with increased pain levels today, particularly R sided pain. Pain is similar in presentation to normal arthritis progression. Pt reports improvement in pain symptoms with soft tissue mobilization of R paraspinals and bilateral hamstring muscles. Continued with hamstring stretching to lengthen; pt met hamstring length goal today. Followed by single leg bridge for strengthening and sit to stand training with resistance for eccentric hamstring/lumbar control. At end of session, pt reports 3/10 in pain levels. Education on activity modification, modalities for pain relief, and transfer training for joint protection. Pt would benefit from skilled PT for body mechanics retraining, BLE/core strengthening in order to improve activity tolerance and return to PLOF. Physical Therapy Plan Frequency and Duration Frequency of Treatment 2x/Week Duration of treatment (weeks) 8 Plan of Care Start Date 06/27/23 Plan of Care End Date 08/26/23 Therapeutic Interventions Therapeutic Interventions Aquatic Therapy,Balance Training,Coordination Training ,Gait Training,Home Exercise Program,Joint Mobilizations, Manual Therapy,Neuromuscular Re-education,Orthotic/ Prosthetic Management,Patient/ Caregiver Education,Self-Care/ Home Management,Sensory Integration,Soft Tissue Mobilization,Taping, Therapeutic Activities, Therapeutic Exercises Modalities Biofeedback,Cold Pack/Ice Massage,Electric Stimulation, Hot Packs,Traction- Mechanical ,Ultrasound,Vasopneumatic Devices Other Therapeutic Interventions Manual traction, self traction Next Visit Focus/Plan Next Note Type Treatment Note Next Visit Plan Next session: Assess aye to previous session and additional HEP exercises, QL, strength, hip mobilizaions, step up, pallof, cunningham carry, bird dog vs dying bug, floor transfer Recheck lift/post chain stretch, self STMs. Hip stool rotation. Trial step ups, continue with stretching, floor transfers POC: Next session: manual tx to LS paraspinals, glutes, iliacus, psoas, quad, HS; check tolerance to stretches, HEP, STM Continue lumbar spine/hip stretching (knee to chest, ER, IR, HS), initiated mobility ( cat camel, thread needle, seated ball rocking) strengthening Initiate daily foot checks, est HEP/daily exercise and walking program Precautions: no excessive spinal flexion due to anterolisthesis, grade III mob max, limit end range ext
--- NOTE | 2023-08-16 12:43 | PT.OTN ---
Current Diagnoses Low back pain, unspecified (08/16/23) Unspecified abnormalities of gait and mobility (08/16/23) Weakness (08/16/23) Physical Therapy Treatment Note PT-OP-A Visit Information Start: 06/27/23 13:45 Freq: Status: Active Protocol: Document 08/16/23 09:02 NM (Rec: 08/16/23 09:47 NM [id number]) Out-Patient Physical Therapy Visit Information Visit Information Visit Type Treatment Note Visit Note KX after 19 visits Visit Start Time 09:03 Visit Stop Time 09:43 Visit Number 12 PT-OP-B Current Condition Start: 06/27/23 13:45 Freq: Status: Active Protocol: Document 06/27/23 13:46 NM (Rec: 06/27/23 17:22 NM [id number]) Current Condition History of Current Condition Onset Date summer 2022 Current Complaints pain, decreased activity History of Current Condition Pt presents with low back pain . No known RONY. He has a hx of surgery for a pinched nerve he thinks left L3-5, a decade. Surgeon and pt to try conservative care. Pt is concerned that he has arthritis. The pain has worsened throughout 2022, with difficulty performing ADLs. He reports that his pain has significantly improved over the past 2 months but continues to exist. 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 He did have minimal back pain during summer, but it gradually worsened over the fall. Pt reports prn numbness /tingling L over the course of 10 years but none currently. Reports difficulty with sleeping after 6-7 hrs (total 8-10- sleeping on R side, pillow between knees), putting on shoes. He reports that he has been moving very gingerly to prevent. He has had episodic pain about 2 senior ago when shoveling snow, pain for about 2 months. Hx of tight hamstrings; no gym since covid Prior Treatments and Tests Previous PT prior to surgery MRI 04/2023: Ant wedge deformity (L1), Anterolisthesis L4-L5, Degenerative changes Prior Functional Status Baseline Function- ADL's Independent Baseline Function- Mobility Independent Baseline Function- Gait Walk >1 hr Baseline Function- Recreation/Hobbies Bikes miles Baseline Function- Other No difficulty with dressing Current Functional Impairments (Reported) Functional Limitations- ADL's Difficulty with putting on shoes Functional Limitations- Mobility/Gait Limited 1 hr max with gait; stand 1/2 hr before painful; painful sit>stand Functional Limitations- Recreation/ Does not participate due to Hobbies fear of pain Functional Limitations- Other sleeps on R side with pillow between knees for 6-7 hrs before wakes due to pain PT-OP-C Subjective Start: 06/27/23 13:45 Freq: Status: Active Protocol: Document 08/16/23 09:02 NM (Rec: 08/16/23 09:47 NM [id number]) OP-PT Subjective Patient Comments Patient Comments Pt reports 5/10 pain in R side of lumbar spine. Believes that it is due to getting up/ down from ground without UE support. He tried again over the weekend using hand support , which helped. Reports that he feels better than Tuesday but still set back. PT-OP-E Functional Tests Start: 06/27/23 13:45 Freq: Status: Active Protocol: Document 06/27/23 13:46 NM (Rec: 06/27/23 17:22 NM [id number]) Functional Tests 30 Second Sit to Stand Test Score 14 Comments reports no pain with transition to stand, increased flexed trunk PT-OP-F Manual Assessment Start: 06/27/23 13:45 Freq: Status: Active Protocol: Document 06/27/23 13:46 NM (Rec: 06/27/23 17:22 NM [id number]) Manual Assessments Soft Tissue Assessment Soft Tissue Mobility Assessment Bilateral hamstring tightness. Increased tone of lumbar paraspinals, L>R Joint Mobility Assessment Joint Mobility Assessment Hypomobility of thoracic and lumbar spine with P-A springing of spinous processes . Decreased hip ER/IR bilaterally in sitting and supine. Unable to placed L ankle over R knee (e.g. to put on shoes) PT-OP-G Mobility & Gait Start: 06/27/23 13:45 Freq: Status: Active Protocol: Document 06/27/23 13:46 NM (Rec: 06/27/23 17:22 NM [id number]) OP Gait Assessment Gait Gait Assistance Required: Independent Distance (Feet) 200 Assistive Devices Assistive Device None Gait Deviations General Gait Pattern Antalgic,Flexed Trunk,Wide Based Gait Factors Limiting Gait Function Factors Limiting Gait Function Decreased Sensation,Decreased Strength,Poor Balance Comments Gait Comments Decreased trunk rotation with gait, B external rotation of feet, flexed trunk posture; wider FREDY PT-OP-H Neuro Start: 06/27/23 13:45 Freq: Status: Active Protocol: Document 06/27/23 13:46 NM (Rec: 06/27/23 17:22 NM [id number]) Sensation Evaluation Gross Sensation Gross Sensation Left LE Impaired,Right LE Impaired Comments Summary Comments Decreased light touch sensation along dorsal and plantar surfaces of feet; other BLE dermatomes intact PT-OP-J Posture/Palpation/Skin Start: 06/27/23 13:45 Freq: Status: Active Protocol: Document 06/27/23 13:46 NM (Rec: 06/27/23 17:22 NM [id number]) Posture Evaluation Position Standing Evaluation View posterior, lateral Head/C-Spine Posture Forward Head L-Spine Posture Fixed Scoliosis on (R) Shoulder Posture (L) Rounded,(R) Rounded,(L) Elevated Arm Posture (L) Internally Rotated,(R) Internally Rotated Pelvis Posture Anteriorly Tilted,(R) Iliac Crest Superior Weight Distribution Balanced Hip Posture (L) Externally Rotated,(R) Externally Rotated Knee Posture (L) Genu Varus,(R) Genu Varus Patellar Posture (L) Superior,(R) Superior Ankle/Foot Posture (L) Neutral,(R) Neutral Comments Posture Comments Dextroscoliosis lumbar spine Palpation Assessment Location lumbar spine Palpation Location paraspinals, glutes, QL, L1-L5 spinous processes, PSIS, SIJ Palpation Findings Soft Tissue Tightness Palpation Details Tenderness along B PSIS, L>R. No tenderness along spinous or transverse processes of L spine. No tenderness of B SIJ. No tenderness of glutes, hip external rotators, greater trochanter, proximal hamstrings. Increased soft tissue tightness of lumbar paraspinals, QL PT-OP-K Range of Motion Start: 06/27/23 13:45 Freq: Status: Active Protocol: Document 07/22/23 10:34 NM (Rec: 07/22/23 11:16 NM [id number]) Lumbar Spine Range of Motion Lumbar Spine Active Percentage Testing Position Standing Flexion 50 Extension 50 Rotation Left 3 Rotation Right 3 Lateral Flexion Left 50 Lateral Flexion Right 50 ROM Limitations Soft Tissue Tightness,Pain Comments Reports minimal pain/pulling with spinal extension. No pain with rotation or flexion. Demos decreased hamstring length with flexion (to knees) and lateral flexion (to mid lateral thigh) 07/22/23: 75% flex, 100% ext, 50% B lateral flex, B 5 cm rotation; tightness only in HS with flex, low back with SB but no pain Hip Goniometric Range of Motion Hip right Flexion w/Knee Flexed 110 Straight Leg Raise 80 Internal Rotation 15 External Rotation 25 Comments Hamstring length: 140 deg 07/22/23: IR 22 deg, ER 30 deg left Testing Position Supine Flexion w/Knee Flexed 112 Straight Leg Raise 70 Internal Rotation 20 External Rotation 15 Comments Hamstring length: 150 deg; pt reports feels more restricted 07/22/23: IR 30 deg, ER 25 deg PT-OP-L Special Tests Start: 06/27/23 13:45 Freq: Status: Active Protocol: Document 06/27/23 13:46 NM (Rec: 06/27/23 17:22 NM [id number]) Special Tests Lumbar Spine Special Tests SIJ Thigh thrust Test Results - SIJ Anterior gapping Test Results - Distraction Test Results + Comments reports relief Pierre/Quadrant Test Results - Comments no local or referred pain with 3D testing Straight Leg Raise Test Results + Slump Test Results + Comments improved with head ext Hip Special Tests NGA Test Results - Comments Unable to perform fully due to ROM limitations on LLE FADIR Test Results - PT-OP-M Strength Start: 06/27/23 13:45 Freq: Status: Active Protocol: Document 07/22/23 10:34 NM (Rec: 07/22/23 11:16 NM [id number]) Trunk Strength Trunk Manual Muscle Testing Testing Position Sitting Flexion 4 Good Extension 4 Good Rotation Left 3+ Fair+ Rotation Right 3+ Fair+ Lateral Flexion Left 3+ Fair+ Lateral Flexion Right 3+ Fair+ Comments No pain with resisted testing. Decreased ability to stabilize against frontal plane resistance 07/22/23: 5/5 for all, no pain PT-OP-Q Treatments Start: 06/27/23 13:45 Freq: Status: Active Protocol: Document 08/16/23 09:02 NM (Rec: 08/16/23 09:47 NM [id number]) Gym Equipment Shuttle Recovery bilateral squat Details cued TKE w/o locking; no valgus today Resistance 87# 3 [employer] Recovery Platform Stable Reps/Time 2x15 Therapeutic Exercises Supine Exercises hamstring stretch Supine Exercise Name from hooklying Side bilateral Reps/Minutes 2x60 Comments pain free Standing Exercises LAQ Side bilateral Resistance lvl 3 tb > lvl 4 tb (blue) Reps/Minutes 3x10 Comments pain free; cued TKE, upright trunk sit to stand Side bilateral Resistance 10# db Equipment Used to plinth Reps/Minutes 2x15 Comments improved hip hinge; cued eccentric control, pain free carries Standing Exercise Name 1. cunningham carry, 2. information consultant carry, 3. B suitcase carry Side bilateral Resistance 10# db in 1 hand, 2x10# db for suitcase carry Reps/Minutes 2x25 ft ea Comments cued upright posture, pain free in low back Therapeutic Activity Therapeutic Activity floor transfers Name close SBA Comments 1. using hand support on plinth, from 1/2 kneel, 2 reps 2. 1/2 kneel with support, hands pushing up on thigh, 4 reps; demos increased lateral trunk lean 3. from squat, using hands to push up on thigh, 1 rep; no pain but challenging Challenging for #3. Able to perform #1 w/o assistance, but requires cueing for #2 Manual Therapy Treatment Soft Tissue Mobilization lumbar paraspinals/quadratus right Mobilization Type Cross-Friction,Rolling, Sustained Pressure Intensity/Depth Moderate Body Position Sidelying Comments Monitored for pain, R sided tightness and pain along paraspinals and QL. Performed in L sidelying with lengthening at ribs/pelvis, 1x10 ea. Reports good symptom reduction afterward. Education on STM with ball then L side bend to lengthen with return to neutral to simulate at home and for pain reduction right hamstring Body Location performed bilaterally Mobilization Type Cross-Friction,Instrument Assisted,Rolling Intensity/Depth Moderate Body Position Sidelying Comments monitored for pain. Increased R hamstring tightness compared to L side prior to stretch Self-Care/Home Management Treatment Education Patient Education Home Exercise Program Other Education HEP: LAQ with blue band PT-OP-T Assessment and Plan Start: 06/27/23 13:45 Freq: Status: Active Protocol: Document 08/16/23 09:02 NM (Rec: 08/16/23 09:47 NM [id number]) Physical Therapy Assessment Goals Five Impairment activity tolerance Impairment Pt w/o HEP Short Term Goal (STG) Pt will report compliance with HEP 2-3/wk in order to demonstrate independence and management of symptoms for return to activity 07/14/23: compliant 2-3x/wk STG Duration 4 weeks [facility] Residential Field Manager Goal (LTG) Pt will report compliance with HEP 3x/wk to demonstrate ability to participate in independent exercise for maintenance program after discharge from PT LTG Duration 8 weeks Four Impairment AROM, ADLs Impairment unable to put on L shoe Jail Goal (LTG) Pt will report that he is able to put on his L shoe in sitting without compensation or reports of low back pain in order to demonstrate improved ability to participate in dressing ADLs 07/14/23: Pt reports that he is able to put on his L shoe ( both shoes in sitting using hip/knee flexion) without pain or difficulty LTG Duration 8 weeks MET Three Impairment hip IR Impairment R hip IR 15 deg Short Term Goal (STG) Pt will increase R hip IR to at least 20 deg in order to demonstrate improved hip mobility 07/22/23: 22 deg; 30 deg ER 08/16/23: R 20 deg IR, L hip 30 deg IR STG Duration 4 weeks MET Jail Goal (LTG) Pt will increase R hip IR to at least 25 deg in order to demonstrate improved hip mobility 08/16/23: 20 deg R hip IR LTG Duration 8 weeks Two Impairment hip ER Impairment L ER AROM 15 deg Short Term Goal (STG) Pt will improve L ER AROM to at least 20 deg in order to demonstrate increased hip mobility to put on his shoes 07/22/23: 25 deg ER, 30 deg IR STG Duration 4 weeks [facility] Residential Field Manager Goal (LTG) Pt will improve L ER AROM to at least 25 deg in order to demonstrate increased hip mobility to put on his shoes 07/22/23: 25 deg ER, 30 deg IR LTG Duration 8 weeks MET One Impairment hamstring length Impairment R hamstring length 140 deg, L hamstring length 150 deg Short Term Goal (STG) Pt will improve B hamstring length by at least 5 deg ea for improved TKE during gait and to improve overall spinal/ hip mobility for improved activity tolerance 07/22/23: 140 deg L, 160 deg R STG Duration 4 weeks PARTIALLY MET Jail Goal (LTG) Pt will improve B hamstring length by at least 10 deg ea for improved TKE during gait and to improve overall spinal/ hip mobility for improved activity tolerance 08/12/23: 160 deg B LTG Duration 8 weeks MET Assessment Summary Assessment Pt tolerated treatment well and reports 4/10 pain at end of session. During session, pt reports no pain. Addressed floor transfers today due to pt concern with getting up from floor/ground while working in garden and if fall should occur. Pt challenged with transfer without hand support, but able to perform with UE assist on thigh. Demos quad/glute weakness. Progressed resistance for squats, initiated LAQ for B quad/glute strength. Added LAQ to HEP. Pt cued for upright posture during carries. Manual treatment consisting of lumbar paraspinal elongation with soft tissue mobilization. Education on use of ball at home against wall using mobilization with movement with side bend in order to continue with pain reduction and lengthening spine. Pt would benefit from skilled PT for BLE/core strengthening and hip mobility in order to improve activity tolerance and decrease pain symptoms. Physical Therapy Plan Frequency and Duration Frequency of Treatment 2x/Week Duration of treatment (weeks) 8 Plan of Care Start Date 06/27/23 Plan of Care End Date 08/26/23 Therapeutic Interventions Therapeutic Interventions Aquatic Therapy,Balance Training,Coordination Training ,Gait Training,Home Exercise Program,Joint Mobilizations, Manual Therapy,Neuromuscular Re-education,Orthotic/ Prosthetic Management,Patient/ Caregiver Education,Self-Care/ Home Management,Sensory Integration,Soft Tissue Mobilization,Taping, Therapeutic Activities, Therapeutic Exercises Modalities Biofeedback,Cold Pack/Ice Massage,Electric Stimulation, Hot Packs,Traction- Mechanical ,Ultrasound,Vasopneumatic Devices Other Therapeutic Interventions Manual traction, self traction Next Visit Focus/Plan Next Note Type Treatment Note Next Visit Plan Next session: LAQ cables, pallof, bird dog, side steps. leg press, carries, squat with weight QL, strength, hip mobilizaions , step up, pallof, cunningham carry, bird dog vs dying bug, floor transfer Recheck lift/post chain stretch, self STMs. Hip stool rotation. Trial step ups, continue with stretching, floor transfers POC: Next session: manual tx to LS paraspinals, glutes, iliacus, psoas, quad, HS; check tolerance to stretches, HEP, STM Continue lumbar spine/hip stretching (knee to chest, ER, IR, HS), initiated mobility ( cat camel, thread needle, seated ball rocking) strengthening Initiate daily foot checks, est HEP/daily exercise and walking program Precautions: no excessive spinal flexion due to anterolisthesis, grade III mob max, limit end range ext 1x/wk after POC ends
--- NOTE | 2023-08-18 09:45 | PT.OTN ---
Current Diagnoses Low back pain, unspecified (08/18/23) Unspecified abnormalities of gait and mobility (08/18/23) Weakness (08/18/23) Physical Therapy Treatment Note PT-OP-A Visit Information Start: 06/27/23 13:45 Freq: Status: Active Protocol: Document 08/18/23 09:02 NM (Rec: 08/18/23 09:44 NM [id number]) Out-Patient Physical Therapy Visit Information Visit Information Visit Type Treatment Note Visit Note KX after 19 visits Visit Start Time 09:02 Visit Stop Time 09:42 Visit Number 13 Evaluation Information Evaluation Date 06/27/23 PT-OP-B Current Condition Start: 06/27/23 13:45 Freq: Status: Active Protocol: Document 06/27/23 13:46 NM (Rec: 06/27/23 17:22 NM [id number]) Current Condition History of Current Condition Onset Date summer 2022 Current Complaints pain, decreased activity History of Current Condition Pt presents with low back pain . No known RONY. He has a hx of surgery for a pinched nerve he thinks left L3-5, a decade. Surgeon and pt to try conservative care. Pt is concerned that he has arthritis. The pain has worsened throughout 2022, with difficulty performing ADLs. He reports that his pain has significantly improved over the past 2 months but continues to exist. 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 He did have minimal back pain during summer, but it gradually worsened over the fall. Pt reports prn numbness /tingling L over the course of 10 years but none currently. Reports difficulty with sleeping after 6-7 hrs (total 8-10- sleeping on R side, pillow between knees), putting on shoes. He reports that he has been moving very gingerly to prevent. He has had episodic pain about 2 senior ago when shoveling snow, pain for about 2 months. Hx of tight hamstrings; no gym since covid Prior Treatments and Tests Previous PT prior to surgery MRI 04/2023: Ant wedge deformity (L1), Anterolisthesis L4-L5, Degenerative changes Prior Functional Status Baseline Function- ADL's Independent Baseline Function- Mobility Independent Baseline Function- Gait Walk >1 hr Baseline Function- Recreation/Hobbies Bikes miles Baseline Function- Other No difficulty with dressing Current Functional Impairments (Reported) Functional Limitations- ADL's Difficulty with putting on shoes Functional Limitations- Mobility/Gait Limited 1 hr max with gait; stand 1/2 hr before painful; painful sit>stand Functional Limitations- Recreation/ Does not participate due to Hobbies fear of pain Functional Limitations- Other sleeps on R side with pillow between knees for 6-7 hrs before wakes due to pain PT-OP-C Subjective Start: 06/27/23 13:45 Freq: Status: Active Protocol: Document 08/18/23 09:02 NM (Rec: 08/18/23 09:44 NM [id number]) OP-PT Subjective Patient Comments Patient Comments Pt reports he has 5/10 R sided pain. States he slept wrong , laying on R side. Reports very sore after last session. He is planning on getting a cortisone shot in early September PT-OP-E Functional Tests Start: 06/27/23 13:45 Freq: Status: Active Protocol: Document 06/27/23 13:46 NM (Rec: 06/27/23 17:22 NM [id number]) Functional Tests 30 Second Sit to Stand Test Score 14 Comments reports no pain with transition to stand, increased flexed trunk PT-OP-F Manual Assessment Start: 06/27/23 13:45 Freq: Status: Active Protocol: Document 06/27/23 13:46 NM (Rec: 06/27/23 17:22 NM [id number]) Manual Assessments Soft Tissue Assessment Soft Tissue Mobility Assessment Bilateral hamstring tightness. Increased tone of lumbar paraspinals, L>R Joint Mobility Assessment Joint Mobility Assessment Hypomobility of thoracic and lumbar spine with P-A springing of spinous processes . Decreased hip ER/IR bilaterally in sitting and supine. Unable to placed L ankle over R knee (e.g. to put on shoes) PT-OP-G Mobility & Gait Start: 06/27/23 13:45 Freq: Status: Active Protocol: Document 06/27/23 13:46 NM (Rec: 06/27/23 17:22 NM [id number]) OP Gait Assessment Gait Gait Assistance Required: Independent Distance (Feet) 200 Assistive Devices Assistive Device None Gait Deviations General Gait Pattern Antalgic,Flexed Trunk,Wide Based Gait Factors Limiting Gait Function Factors Limiting Gait Function Decreased Sensation,Decreased Strength,Poor Balance Comments Gait Comments Decreased trunk rotation with gait, B external rotation of feet, flexed trunk posture; wider FREDY PT-OP-H Neuro Start: 06/27/23 13:45 Freq: Status: Active Protocol: Document 06/27/23 13:46 NM (Rec: 06/27/23 17:22 NM [id number]) Sensation Evaluation Gross Sensation Gross Sensation Left LE Impaired,Right LE Impaired Comments Summary Comments Decreased light touch sensation along dorsal and plantar surfaces of feet; other BLE dermatomes intact PT-OP-J Posture/Palpation/Skin Start: 06/27/23 13:45 Freq: Status: Active Protocol: Document 06/27/23 13:46 NM (Rec: 06/27/23 17:22 NM [id number]) Posture Evaluation Position Standing Evaluation View posterior, lateral Head/C-Spine Posture Forward Head L-Spine Posture Fixed Scoliosis on (R) Shoulder Posture (L) Rounded,(R) Rounded,(L) Elevated Arm Posture (L) Internally Rotated,(R) Internally Rotated Pelvis Posture Anteriorly Tilted,(R) Iliac Crest Superior Weight Distribution Balanced Hip Posture (L) Externally Rotated,(R) Externally Rotated Knee Posture (L) Genu Varus,(R) Genu Varus Patellar Posture (L) Superior,(R) Superior Ankle/Foot Posture (L) Neutral,(R) Neutral Comments Posture Comments Dextroscoliosis lumbar spine Palpation Assessment Location lumbar spine Palpation Location paraspinals, glutes, QL, L1-L5 spinous processes, PSIS, SIJ Palpation Findings Soft Tissue Tightness Palpation Details Tenderness along B PSIS, L>R. No tenderness along spinous or transverse processes of L spine. No tenderness of B SIJ. No tenderness of glutes, hip external rotators, greater trochanter, proximal hamstrings. Increased soft tissue tightness of lumbar paraspinals, QL PT-OP-K Range of Motion Start: 06/27/23 13:45 Freq: Status: Active Protocol: Document 07/22/23 10:34 NM (Rec: 07/22/23 11:16 NM [id number]) Lumbar Spine Range of Motion Lumbar Spine Active Percentage Testing Position Standing Flexion 50 Extension 50 Rotation Left 3 Rotation Right 3 Lateral Flexion Left 50 Lateral Flexion Right 50 ROM Limitations Soft Tissue Tightness,Pain Comments Reports minimal pain/pulling with spinal extension. No pain with rotation or flexion. Demos decreased hamstring length with flexion (to knees) and lateral flexion (to mid lateral thigh) 07/22/23: 75% flex, 100% ext, 50% B lateral flex, B 5 cm rotation; tightness only in HS with flex, low back with SB but no pain Hip Goniometric Range of Motion Hip right Flexion w/Knee Flexed 110 Straight Leg Raise 80 Internal Rotation 15 External Rotation 25 Comments Hamstring length: 140 deg 07/22/23: IR 22 deg, ER 30 deg left Testing Position Supine Flexion w/Knee Flexed 112 Straight Leg Raise 70 Internal Rotation 20 External Rotation 15 Comments Hamstring length: 150 deg; pt reports feels more restricted 07/22/23: IR 30 deg, ER 25 deg PT-OP-L Special Tests Start: 06/27/23 13:45 Freq: Status: Active Protocol: Document 06/27/23 13:46 NM (Rec: 06/27/23 17:22 NM [id number]) Special Tests Lumbar Spine Special Tests SIJ Thigh thrust Test Results - SIJ Anterior gapping Test Results - Distraction Test Results + Comments reports relief Pierre/Quadrant Test Results - Comments no local or referred pain with 3D testing Straight Leg Raise Test Results + Slump Test Results + Comments improved with head ext Hip Special Tests NGA Test Results - Comments Unable to perform fully due to ROM limitations on LLE FADIR Test Results - PT-OP-M Strength Start: 06/27/23 13:45 Freq: Status: Active Protocol: Document 07/22/23 10:34 NM (Rec: 07/22/23 11:16 NM [id number]) Trunk Strength Trunk Manual Muscle Testing Testing Position Sitting Flexion 4 Good Extension 4 Good Rotation Left 3+ Fair+ Rotation Right 3+ Fair+ Lateral Flexion Left 3+ Fair+ Lateral Flexion Right 3+ Fair+ Comments No pain with resisted testing. Decreased ability to stabilize against frontal plane resistance 07/22/23: 5/5 for all, no pain PT-OP-Q Treatments Start: 06/27/23 13:45 Freq: Status: Active Protocol: Document 08/18/23 09:02 NM (Rec: 08/18/23 09:44 NM [id number]) Therapeutic Exercises Prone Exercises child's pose Prone Exercise Name 1. rock back, 2. IR rockback, 3. ER rock back, 4. lateral stretch Side bilateral Resistance AROM Reps/Minutes 1x8 ea, 4. 2x30 hold Comments limited hip mobility, pain free; post manual treatment Sitting Exercises core stability Sitting Exercise Name 1. single leg july (non-alt), 2. march w/ lateral tap Side bilateral Resistance AROM Equipment Used large green swissball Reps/Minutes 1. 2x8 Comments cued for upright posture, core bracing pelvic mobility Sitting Exercise Name 1. tail wags, 2. tilts (ppt> neutral) Side bilateral Resistance AROM Equipment Used large green swissball Reps/Minutes 1. 15x5, 2. 1x15 Comments reports tightness in paraspinals, improved w/ reps; dec tilt Standing Exercises lat pull down Standing Exercise Name performed on large green syrian ball today Side bilateral Resistance lvl 4 band Reps/Minutes 2x10 Comments pain free; cued to keep arms closer to side, core bracing Manual Therapy Treatment Soft Tissue Mobilization lumbar paraspinals/quadratus right Mobilization Type Cross-Friction,Rolling, Sustained Pressure Intensity/Depth Moderate Body Position Sidelying Comments Monitored for pain, R sided tightness and pain along paraspinals and QL. Performed in L sidelying with lengthening at ribs/pelvis, 1x10 ea. Next, trunk flexion bias in sidelying, PT stretching into rotation with force at pelvis/trunk, 1x10. Reports good symptom reduction afterward. PT-OP-T Assessment and Plan Start: 06/27/23 13:45 Freq: Status: Active Protocol: Document 08/18/23 09:02 NM (Rec: 08/18/23 09:44 NM [id number]) Physical Therapy Assessment Goals Five Impairment activity tolerance Impairment Pt w/o HEP Short Term Goal (STG) Pt will report compliance with HEP 2-3/wk in order to demonstrate independence and management of symptoms for return to activity 07/14/23: compliant 2-3x/wk STG Duration 4 weeks MET Residential Goal (LTG) Pt will report compliance with HEP 3x/wk to demonstrate ability to participate in independent exercise for maintenance program after discharge from PT LTG Duration 8 weeks Four Impairment AROM, ADLs Impairment unable to put on L shoe Data Assistant Goal (LTG) Pt will report that he is able to put on his L shoe in sitting without compensation or reports of low back pain in order to demonstrate improved ability to participate in dressing ADLs 07/14/23: Pt reports that he is able to put on his L shoe ( both shoes in sitting using hip/knee flexion) without pain or difficulty LTG Duration 8 weeks MET Three Impairment hip IR Impairment R hip IR 15 deg Short Term Goal (STG) Pt will increase R hip IR to at least 20 deg in order to demonstrate improved hip mobility 07/22/23: 22 deg; 30 deg ER 08/16/23: R 20 deg IR, L hip 30 deg IR STG Duration 4 weeks MET Data Assistant Goal (LTG) Pt will increase R hip IR to at least 25 deg in order to demonstrate improved hip mobility 08/16/23: 20 deg R hip IR LTG Duration 8 weeks Two Impairment hip ER Impairment L ER AROM 15 deg Short Term Goal (STG) Pt will improve L ER AROM to at least 20 deg in order to demonstrate increased hip mobility to put on his shoes 07/22/23: 25 deg ER, 30 deg IR STG Duration 4 weeks MET Residential Goal (LTG) Pt will improve L ER AROM to at least 25 deg in order to demonstrate increased hip mobility to put on his shoes 07/22/23: 25 deg ER, 30 deg IR LTG Duration 8 weeks MET One Impairment hamstring length Impairment R hamstring length 140 deg, L hamstring length 150 deg Short Term Goal (STG) Pt will improve B hamstring length by at least 5 deg ea for improved TKE during gait and to improve overall spinal/ hip mobility for improved activity tolerance 07/22/23: 140 deg L, 160 deg R STG Duration 4 weeks PARTIALLY MET Residential Goal (LTG) Pt will improve B hamstring length by at least 10 deg ea for improved TKE during gait and to improve overall spinal/ hip mobility for improved activity tolerance 08/12/23: 160 deg B LTG Duration 8 weeks MET Assessment Summary Assessment Due to increased pt tightness and pain in R low back paraspinals, began with manual treatment. Performed soft tissue mobilization of R QL, paraspinals for pain reduction . Pt has decreased trunk mobility with lateral flexion due to increased muscle tension; continued with lateral flexion gapping and added flexion stretch. Initiated pelvic mobility and core stabilization exercises on syrian ball as regression from standing exercises to minimize pain and promote increased core bracing. Pt tolerates well, reports improvement in symptoms; cued verbally for upright posture to limit trunk compensations and abdominal drawing up/in. Trialed lat pull down on green syrian ball for core stabilization and paraspinal strengthening; cue to limit trunk compensations. Requires increased time with activity due to soreness, but reports < 5/10 pain at end of session. Pt would benefit from skilled PT for hip mobility, core/ lumbar strengthening, body mechanics training in order to decrease pain symptoms and improve activity tolerance. Physical Therapy Plan Frequency and Duration Frequency of Treatment 2x/Week Duration of treatment (weeks) 8 Plan of Care Start Date 06/27/23 Plan of Care End Date 08/26/23 Therapeutic Interventions Therapeutic Interventions Aquatic Therapy,Balance Training,Coordination Training ,Gait Training,Home Exercise Program,Joint Mobilizations, Manual Therapy,Neuromuscular Re-education,Orthotic/ Prosthetic Management,Patient/ Caregiver Education,Self-Care/ Home Management,Sensory Integration,Soft Tissue Mobilization,Taping, Therapeutic Activities, Therapeutic Exercises Modalities Biofeedback,Cold Pack/Ice Massage,Electric Stimulation, Hot Packs,Traction- Mechanical ,Ultrasound,Vasopneumatic Devices Other Therapeutic Interventions Manual traction, self traction Next Visit Focus/Plan Next Note Type Treatment Note Next Visit Plan Check tolerance to last tmt Next session: LAQ cables, pallof, bird dog, side steps. leg press, carries, squat with weight QL, strength, hip mobilizaions , step up, pallof, cunningham carry, bird dog vs dying bug, floor transfer Recheck lift/post chain stretch, self STMs. Hip stool rotation. Trial step ups, continue with stretching, floor transfers POC: Next session: manual tx to LS paraspinals, glutes, iliacus, psoas, quad, HS; check tolerance to stretches, HEP, STM Continue lumbar spine/hip stretching (knee to chest, ER, IR, HS), initiated mobility ( cat camel, thread needle, seated ball rocking) strengthening Initiate daily foot checks, est HEP/daily exercise and walking program Precautions: no excessive spinal flexion due to anterolisthesis, grade III mob max, limit end range ext 1x/wk after POC ends, PN 08/22
--- NOTE | 2023-08-23 10:37 | PT.OTN ---
Current Diagnoses Low back pain, unspecified (08/23/23) Unspecified abnormalities of gait and mobility (08/23/23) Weakness (08/23/23) Physical Therapy Treatment Note PT-OP-A Visit Information Start: 06/27/23 13:45 Freq: Status: Active Protocol: Document 08/23/23 09:51 NBM (Rec: 08/23/23 10:37 NBM [id number]) Out-Patient Physical Therapy Visit Information Visit Information Visit Type Treatment Note Visit Note KX after 19 visits Visit Start Time 09:52 Visit Stop Time 10:32 Visit Number 14 Number of CLAY MACHINE OPERATOR Visits 1 Evaluation Information Evaluation Date 06/27/23 PT-OP-B Current Condition Start: 06/27/23 13:45 Freq: Status: Active Protocol: Document 06/27/23 13:46 NM (Rec: 06/27/23 17:22 NM [id number]) Current Condition History of Current Condition Onset Date summer 2022 Current Complaints pain, decreased activity History of Current Condition Pt presents with low back pain . No known RONY. He has a hx of surgery for a pinched nerve he thinks left L3-5, a decade. Surgeon and pt to try conservative care. Pt is concerned that he has arthritis. The pain has worsened throughout 2022, with difficulty performing ADLs. He reports that his pain has significantly improved over the past 2 months but continues to exist. 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 He did have minimal back pain during summer, but it gradually worsened over the fall. Pt reports prn numbness /tingling L over the course of 10 years but none currently. Reports difficulty with sleeping after 6-7 hrs (total 8-10- sleeping on R side, pillow between knees), putting on shoes. He reports that he has been moving very gingerly to prevent. He has had episodic pain about 2 senior ago when shoveling snow, pain for about 2 months. Hx of tight hamstrings; no gym since covid Prior Treatments and Tests Previous PT prior to surgery MRI 04/2023: Ant wedge deformity (L1), Anterolisthesis L4-L5, Degenerative changes Prior Functional Status Baseline Function- ADL's Independent Baseline Function- Mobility Independent Baseline Function- Gait Walk >1 hr Baseline Function- Recreation/Hobbies Bikes miles Baseline Function- Other No difficulty with dressing Current Functional Impairments (Reported) Functional Limitations- ADL's Difficulty with putting on shoes Functional Limitations- Mobility/Gait Limited 1 hr max with gait; stand 1/2 hr before painful; painful sit>stand Functional Limitations- Recreation/ Does not participate due to Hobbies fear of pain Functional Limitations- Other sleeps on R side with pillow between knees for 6-7 hrs before wakes due to pain PT-OP-C Subjective Start: 06/27/23 13:45 Freq: Status: Active Protocol: Document 08/23/23 09:51 NBM (Rec: 08/23/23 10:37 NBM [id number]) OP-PT Subjective Patient Comments Patient Comments Oniel reports he's been doing well the past few days and thinks he's finally turning the corner. No pain in this moment. He went for a long walk yesterday 1.5 hr to test himself and iced it afterwards for 10-15 min and then felt fine. Patient Reported Progress Improving PT-OP-E Functional Tests Start: 06/27/23 13:45 Freq: Status: Active Protocol: Document 06/27/23 13:46 NM (Rec: 06/27/23 17:22 NM [id number]) Functional Tests 30 Second Sit to Stand Test Score 14 Comments reports no pain with transition to stand, increased flexed trunk PT-OP-F Manual Assessment Start: 06/27/23 13:45 Freq: Status: Active Protocol: Document 06/27/23 13:46 NM (Rec: 06/27/23 17:22 NM [id number]) Manual Assessments Soft Tissue Assessment Soft Tissue Mobility Assessment Bilateral hamstring tightness. Increased tone of lumbar paraspinals, L>R Joint Mobility Assessment Joint Mobility Assessment Hypomobility of thoracic and lumbar spine with P-A springing of spinous processes . Decreased hip ER/IR bilaterally in sitting and supine. Unable to placed L ankle over R knee (e.g. to put on shoes) PT-OP-G Mobility & Gait Start: 06/27/23 13:45 Freq: Status: Active Protocol: Document 06/27/23 13:46 NM (Rec: 06/27/23 17:22 NM [id number]) OP Gait Assessment Gait Gait Assistance Required: Independent Distance (Feet) 200 Assistive Devices Assistive Device None Gait Deviations General Gait Pattern Antalgic,Flexed Trunk,Wide Based Gait Factors Limiting Gait Function Factors Limiting Gait Function Decreased Sensation,Decreased Strength,Poor Balance Comments Gait Comments Decreased trunk rotation with gait, B external rotation of feet, flexed trunk posture; wider FREDY PT-OP-H Neuro Start: 06/27/23 13:45 Freq: Status: Active Protocol: Document 06/27/23 13:46 NM (Rec: 06/27/23 17:22 NM [id number]) Sensation Evaluation Gross Sensation Gross Sensation Left LE Impaired,Right LE Impaired Comments Summary Comments Decreased light touch sensation along dorsal and plantar surfaces of feet; other BLE dermatomes intact PT-OP-J Posture/Palpation/Skin Start: 06/27/23 13:45 Freq: Status: Active Protocol: Document 06/27/23 13:46 NM (Rec: 06/27/23 17:22 NM [id number]) Posture Evaluation Position Standing Evaluation View posterior, lateral Head/C-Spine Posture Forward Head L-Spine Posture Fixed Scoliosis on (R) Shoulder Posture (L) Rounded,(R) Rounded,(L) Elevated Arm Posture (L) Internally Rotated,(R) Internally Rotated Pelvis Posture Anteriorly Tilted,(R) Iliac Crest Superior Weight Distribution Balanced Hip Posture (L) Externally Rotated,(R) Externally Rotated Knee Posture (L) Genu Varus,(R) Genu Varus Patellar Posture (L) Superior,(R) Superior Ankle/Foot Posture (L) Neutral,(R) Neutral Comments Posture Comments Dextroscoliosis lumbar spine Palpation Assessment Location lumbar spine Palpation Location paraspinals, glutes, QL, L1-L5 spinous processes, PSIS, SIJ Palpation Findings Soft Tissue Tightness Palpation Details Tenderness along B PSIS, L>R. No tenderness along spinous or transverse processes of L spine. No tenderness of B SIJ. No tenderness of glutes, hip external rotators, greater trochanter, proximal hamstrings. Increased soft tissue tightness of lumbar paraspinals, QL PT-OP-K Range of Motion Start: 06/27/23 13:45 Freq: Status: Active Protocol: Document 07/22/23 10:34 NM (Rec: 07/22/23 11:16 NM [id number]) Lumbar Spine Range of Motion Lumbar Spine Active Percentage Testing Position Standing Flexion 50 Extension 50 Rotation Left 3 Rotation Right 3 Lateral Flexion Left 50 Lateral Flexion Right 50 ROM Limitations Soft Tissue Tightness,Pain Comments Reports minimal pain/pulling with spinal extension. No pain with rotation or flexion. Demos decreased hamstring length with flexion (to knees) and lateral flexion (to mid lateral thigh) 07/22/23: 75% flex, 100% ext, 50% B lateral flex, B 5 cm rotation; tightness only in HS with flex, low back with SB but no pain Hip Goniometric Range of Motion Hip right Flexion w/Knee Flexed 110 Straight Leg Raise 80 Internal Rotation 15 External Rotation 25 Comments Hamstring length: 140 deg 07/22/23: IR 22 deg, ER 30 deg left Testing Position Supine Flexion w/Knee Flexed 112 Straight Leg Raise 70 Internal Rotation 20 External Rotation 15 Comments Hamstring length: 150 deg; pt reports feels more restricted 07/22/23: IR 30 deg, ER 25 deg PT-OP-L Special Tests Start: 06/27/23 13:45 Freq: Status: Active Protocol: Document 06/27/23 13:46 NM (Rec: 06/27/23 17:22 NM [id number]) Special Tests Lumbar Spine Special Tests SIJ Thigh thrust Test Results - SIJ Anterior gapping Test Results - Distraction Test Results + Comments reports relief Pierre/Quadrant Test Results - Comments no local or referred pain with 3D testing Straight Leg Raise Test Results + Slump Test Results + Comments improved with head ext Hip Special Tests NGA Test Results - Comments Unable to perform fully due to ROM limitations on LLE FADIR Test Results - PT-OP-M Strength Start: 06/27/23 13:45 Freq: Status: Active Protocol: Document 07/22/23 10:34 NM (Rec: 07/22/23 11:16 NM [id number]) Trunk Strength Trunk Manual Muscle Testing Testing Position Sitting Flexion 4 Good Extension 4 Good Rotation Left 3+ Fair+ Rotation Right 3+ Fair+ Lateral Flexion Left 3+ Fair+ Lateral Flexion Right 3+ Fair+ Comments No pain with resisted testing. Decreased ability to stabilize against frontal plane resistance 07/22/23: 5/5 for all, no pain PT-OP-Q Treatments Start: 06/27/23 13:45 Freq: Status: Active Protocol: Document 08/23/23 09:51 NBM (Rec: 08/23/23 10:37 NBM [id number]) Gym Equipment Cable Column (Body Solid) Lat pulldown Details TrA and breath focus Resistance 10>20>30# Reps/Time 10#x5, 20x10, 30# x10 knee extension Details LAQ, TrA and breath focus Resistance 20# Reps/Time 2x10, cues for TrA, breathwork , eccentric control hamstring curl Details TrA and breath focus Resistance 20# Reps/Time 2x10 Therapeutic Exercises Prone Exercises child's pose Prone Exercise Name 1. rock back, 2. IR rockback- nd 3. ER rock back-not done 4. lateral stretch Side bilateral Resistance AROM Reps/Minutes 1x8 ea, 4. 2x30 hold Comments limited hip mobility, pain free; post manual treatment Other Exercises quadruped Other Exercise Name alternating UE>LE>bird dog Side bilateral Reps/Minutes x10 ea Comments tactile cues for excessive pelvic rotation Manual Therapy Treatment Soft Tissue Mobilization lumbar paraspinals/quadratus right Mobilization Type Cross-Friction,Rolling, Sustained Pressure Intensity/Depth Moderate Body Position Sidelying Comments Monitored for pain, R sided tightness and pain along paraspinals and QL. Manual pin and stretch to R QL 2 x45s . Trunk flexion bias in sidelying, pt stretching into rotation with open book, CLAY MACHINE OPERATOR force at pelvis/trunk, 1x10. Reports good symptom reduction afterward. PT-OP-T Assessment and Plan Start: 06/27/23 13:45 Freq: Status: Active Protocol: Document 08/23/23 09:51 [facility] (Rec: 08/23/23 10:37 [facility] [id number]) Physical Therapy Assessment Goals Five Impairment activity tolerance Impairment Pt w/o HEP Short Term Goal (STG) Pt will report compliance with HEP 2-3/wk in order to demonstrate independence and management of symptoms for return to activity 07/14/23: compliant 2-3x/wk STG Duration 4 weeks MET Alf Goal (LTG) Pt will report compliance with HEP 3x/wk to demonstrate ability to participate in independent exercise for maintenance program after discharge from PT LTG Duration 8 weeks Four Impairment AROM, ADLs Impairment unable to put on L shoe Laundry Or Dry Cleaners Counter Clerk Goal (LTG) Pt will report that he is able to put on his L shoe in sitting without compensation or reports of low back pain in order to demonstrate improved ability to participate in dressing ADLs 07/14/23: Pt reports that he is able to put on his L shoe ( both shoes in sitting using hip/knee flexion) without pain or difficulty LTG Duration 8 weeks MET Three Impairment hip IR Impairment R hip IR 15 deg Short Term Goal (STG) Pt will increase R hip IR to at least 20 deg in order to demonstrate improved hip mobility 07/22/23: 22 deg; 30 deg ER 08/16/23: R 20 deg IR, L hip 30 deg IR STG Duration 4 weeks MET Laundry Or Dry Cleaners Counter Clerk Goal (LTG) Pt will increase R hip IR to at least 25 deg in order to demonstrate improved hip mobility 08/16/23: 20 deg R hip IR LTG Duration 8 weeks Two Impairment hip ER Impairment L ER AROM 15 deg Short Term Goal (STG) Pt will improve L ER AROM to at least 20 deg in order to demonstrate increased hip mobility to put on his shoes 07/22/23: 25 deg ER, 30 deg IR STG Duration 4 weeks MET Laundry Or Dry Cleaners Counter Clerk Goal (LTG) Pt will improve L ER AROM to at least 25 deg in order to demonstrate increased hip mobility to put on his shoes 07/22/23: 25 deg ER, 30 deg IR LTG Duration 8 weeks MET One Impairment hamstring length Impairment R hamstring length 140 deg, L hamstring length 150 deg Short Term Goal (STG) Pt will improve B hamstring length by at least 5 deg ea for improved TKE during gait and to improve overall spinal/ hip mobility for improved activity tolerance 07/22/23: 140 deg L, 160 deg R STG Duration 4 weeks PARTIALLY MET Laundry Or Dry Cleaners Counter Clerk Goal (LTG) Pt will improve B hamstring length by at least 10 deg ea for improved TKE during gait and to improve overall spinal/ hip mobility for improved activity tolerance 08/12/23: 160 deg B LTG Duration 8 weeks MET Assessment Summary Assessment Treatment focus on STM to R lumbar paraspinals and QL and core strengthening. Pt tolerates full treatment without pain or increase in baseline symptoms. He tolerates introduction of bird dog with initial tactile cues for excessive pelvic rotation but improved self-awareness with repetition. He performs HS curls, LAQ and lat pulldown on cable column with cues for breath. Physical Therapy Plan Frequency and Duration Frequency of Treatment 2x/Week Duration of treatment (weeks) 8 Plan of Care Start Date 06/27/23 Plan of Care End Date 08/26/23 Therapeutic Interventions Therapeutic Interventions Aquatic Therapy,Balance Training,Coordination Training ,Gait Training,Home Exercise Program,Joint Mobilizations, Manual Therapy,Neuromuscular Re-education,Orthotic/ Prosthetic Management,Patient/ Caregiver Education,Self-Care/ Home Management,Sensory Integration,Soft Tissue Mobilization,Taping, Therapeutic Activities, Therapeutic Exercises Modalities Biofeedback,Cold Pack/Ice Massage,Electric Stimulation, Hot Packs,Traction- Mechanical ,Ultrasound,Vasopneumatic Devices Other Therapeutic Interventions Manual traction, self traction Next Visit Focus/Plan Next Note Type Treatment Note Next Visit Plan Check tolerance to last tmt Next session: LAQ cables, pallof, bird dog, side steps. leg press, carries, squat with weight QL, strength, hip mobilizaions , step up, pallof, cunningham carry, bird dog vs dying bug, floor transfer Recheck lift/post chain stretch, self STMs. Hip stool rotation. Trial step ups, continue with stretching, floor transfers POC: Next session: manual tx to LS paraspinals, glutes, iliacus, psoas, quad, HS; check tolerance to stretches, HEP, STM Continue lumbar spine/hip stretching (knee to chest, ER, IR, HS), initiated mobility ( cat camel, thread needle, seated ball rocking) strengthening Initiate daily foot checks, est HEP/daily exercise and walking program Precautions: no excessive spinal flexion due to anterolisthesis, grade III mob max, limit end range ext 1x/wk after POC ends
--- NOTE | 2023-08-25 15:35 | PT.OTN ---
Current Diagnoses Low back pain, unspecified (08/25/23) Unspecified abnormalities of gait and mobility (08/25/23) Weakness (08/25/23) Physical Therapy Treatment Note PT-OP-A Visit Information Start: 06/27/23 13:45 Freq: Status: Active Protocol: Document 08/25/23 09:03 NM (Rec: 08/25/23 09:50 NM [id number]) Out-Patient Physical Therapy Visit Information Visit Information Visit Type Progress Note Visit Note KX after 19 visits Visit Start Time 09:03 Visit Stop Time 09:45 Visit Number 15 Evaluation Information Evaluation Date 06/27/23 PT-OP-B Current Condition Start: 06/27/23 13:45 Freq: Status: Active Protocol: Document 06/27/23 13:46 NM (Rec: 06/27/23 17:22 NM [id number]) Current Condition History of Current Condition Onset Date summer 2022 Current Complaints pain, decreased activity History of Current Condition Pt presents with low back pain . No known RONY. He has a hx of surgery for a pinched nerve he thinks left L3-5, a decade. Surgeon and pt to try conservative care. Pt is concerned that he has arthritis. The pain has worsened throughout 2022, with difficulty performing ADLs. He reports that his pain has significantly improved over the past 2 months but continues to exist. 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 He did have minimal back pain during summer, but it gradually worsened over the fall. Pt reports prn numbness /tingling L over the course of 10 years but none currently. Reports difficulty with sleeping after 6-7 hrs (total 8-10- sleeping on R side, pillow between knees), putting on shoes. He reports that he has been moving very gingerly to prevent. He has had episodic pain about 2 senior ago when shoveling snow, pain for about 2 months. Hx of tight hamstrings; no gym since covid Prior Treatments and Tests Previous PT prior to surgery MRI 04/2023: Ant wedge deformity (L1), Anterolisthesis L4-L5, Degenerative changes Prior Functional Status Baseline Function- ADL's Independent Baseline Function- Mobility Independent Baseline Function- Gait Walk >1 hr Baseline Function- Recreation/Hobbies Bikes miles Baseline Function- Other No difficulty with dressing Current Functional Impairments (Reported) Functional Limitations- ADL's Difficulty with putting on shoes Functional Limitations- Mobility/Gait Limited 1 hr max with gait; stand 1/2 hr before painful; painful sit>stand Functional Limitations- Recreation/ Does not participate due to Hobbies fear of pain Functional Limitations- Other sleeps on R side with pillow between knees for 6-7 hrs before wakes due to pain PT-OP-C Subjective Start: 06/27/23 13:45 Freq: Status: Active Protocol: Document 08/25/23 09:03 NM (Rec: 08/25/23 09:50 NM [id number]) OP-PT Subjective Patient Comments Patient Comments Pt reports 0/10 pain since last Tuesday. States does not want to do any strength today, reports HSC made hamstrings sore which improved with biking. At this time, pt wanting to continue PT due to recent exacerbation to improve strength and stabilization of spine. Continues to report good feedback when using ice. PT-OP-E Functional Tests Start: 06/27/23 13:45 Freq: Status: Active Protocol: Document 06/27/23 13:46 NM (Rec: 06/27/23 17:22 NM [id number]) Functional Tests 30 Second Sit to Stand Test Score 14 Comments reports no pain with transition to stand, increased flexed trunk PT-OP-F Manual Assessment Start: 06/27/23 13:45 Freq: Status: Active Protocol: Document 06/27/23 13:46 NM (Rec: 06/27/23 17:22 NM [id number]) Manual Assessments Soft Tissue Assessment Soft Tissue Mobility Assessment Bilateral hamstring tightness. Increased tone of lumbar paraspinals, L>R Joint Mobility Assessment Joint Mobility Assessment Hypomobility of thoracic and lumbar spine with P-A springing of spinous processes . Decreased hip ER/IR bilaterally in sitting and supine. Unable to placed L ankle over R knee (e.g. to put on shoes) PT-OP-G Mobility & Gait Start: 06/27/23 13:45 Freq: Status: Active Protocol: Document 06/27/23 13:46 NM (Rec: 06/27/23 17:22 NM [id number]) OP Gait Assessment Gait Gait Assistance Required: Independent Distance (Feet) 200 Assistive Devices Assistive Device None Gait Deviations General Gait Pattern Antalgic,Flexed Trunk,Wide Based Gait Factors Limiting Gait Function Factors Limiting Gait Function Decreased Sensation,Decreased Strength,Poor Balance Comments Gait Comments Decreased trunk rotation with gait, B external rotation of feet, flexed trunk posture; wider FREDY PT-OP-H Neuro Start: 06/27/23 13:45 Freq: Status: Active Protocol: Document 06/27/23 13:46 NM (Rec: 06/27/23 17:22 NM [id number]) Sensation Evaluation Gross Sensation Gross Sensation Left LE Impaired,Right LE Impaired Comments Summary Comments Decreased light touch sensation along dorsal and plantar surfaces of feet; other BLE dermatomes intact PT-OP-J Posture/Palpation/Skin Start: 06/27/23 13:45 Freq: Status: Active Protocol: Document 06/27/23 13:46 NM (Rec: 06/27/23 17:22 NM [id number]) Posture Evaluation Position Standing Evaluation View posterior, lateral Head/C-Spine Posture Forward Head L-Spine Posture Fixed Scoliosis on (R) Shoulder Posture (L) Rounded,(R) Rounded,(L) Elevated Arm Posture (L) Internally Rotated,(R) Internally Rotated Pelvis Posture Anteriorly Tilted,(R) Iliac Crest Superior Weight Distribution Balanced Hip Posture (L) Externally Rotated,(R) Externally Rotated Knee Posture (L) Genu Varus,(R) Genu Varus Patellar Posture (L) Superior,(R) Superior Ankle/Foot Posture (L) Neutral,(R) Neutral Comments Posture Comments Dextroscoliosis lumbar spine Palpation Assessment Location lumbar spine Palpation Location paraspinals, glutes, QL, L1-L5 spinous processes, PSIS, SIJ Palpation Findings Soft Tissue Tightness Palpation Details Tenderness along B PSIS, L>R. No tenderness along spinous or transverse processes of L spine. No tenderness of B SIJ. No tenderness of glutes, hip external rotators, greater trochanter, proximal hamstrings. Increased soft tissue tightness of lumbar paraspinals, QL PT-OP-K Range of Motion Start: 06/27/23 13:45 Freq: Status: Active Protocol: Document 08/25/23 09:03 NM (Rec: 08/25/23 09:50 NM [id number]) Lumbar Spine Range of Motion Lumbar Spine Active Percentage Testing Position Standing Flexion 80 Extension 50 Rotation Left 3 Rotation Right 3 Lateral Flexion Left 75 Lateral Flexion Right 75 ROM Limitations Soft Tissue Tightness,Pain Comments IE: 50% flex and ext, 3 cm B rot, 50% B lateral flex; Reports minimal pain/pulling with spinal extension. No pain with rotation or flexion. Demos decreased hamstring length with flexion (to knees) and lateral flexion (to mid lateral thigh) 07/22/23: 75% flex, 100% ext, 50% B lateral flex, B 5 cm rotation; tightness only in HS with flex, low back with SB but no pain 08/25/23: slight pull with L lateral flexion, 75% flex, 75% SB bilateral Hip Goniometric Range of Motion Hip right Flexion w/Knee Flexed 110 Straight Leg Raise 80 Internal Rotation 20 External Rotation 30 Comments IE: 15 deg IR, 25 deg ER; Hamstring length: 140 deg 07/22/23: IR 22 deg, ER 30 deg 08/25/23: IR 20 deg, ER 30 deg; HS: 150 deg left Testing Position Supine Flexion w/Knee Flexed 112 Straight Leg Raise 70 Internal Rotation 35 External Rotation 30 Comments Ie: 20 deg IR, 15 deg ER; Hamstring length: 150 deg; pt reports feels more restricted 07/22/23: IR 30 deg, ER 25 deg 08/25/23: IR 35, ER 30 deg; HS: 150 deg PT-OP-L Special Tests Start: 06/27/23 13:45 Freq: Status: Active Protocol: Document 06/27/23 13:46 NM (Rec: 06/27/23 17:22 NM [id number]) Special Tests Lumbar Spine Special Tests SIJ Thigh thrust Test Results - SIJ Anterior gapping Test Results - Distraction Test Results + Comments reports relief Pierre/Quadrant Test Results - Comments no local or referred pain with 3D testing Straight Leg Raise Test Results + Slump Test Results + Comments improved with head ext Hip Special Tests NGA Test Results - Comments Unable to perform fully due to ROM limitations on LLE FADIR Test Results - PT-OP-M Strength Start: 06/27/23 13:45 Freq: Status: Active Protocol: Document 07/22/23 10:34 NM (Rec: 07/22/23 11:16 NM [id number]) Trunk Strength Trunk Manual Muscle Testing Testing Position Sitting Flexion 4 Good Extension 4 Good Rotation Left 3+ Fair+ Rotation Right 3+ Fair+ Lateral Flexion Left 3+ Fair+ Lateral Flexion Right 3+ Fair+ Comments No pain with resisted testing. Decreased ability to stabilize against frontal plane resistance 07/22/23: 5/5 for all, no pain PT-OP-Q Treatments Start: 06/27/23 13:45 Freq: Status: Active Protocol: Document 08/25/23 09:03 NM (Rec: 08/25/23 09:50 NM [id number]) Gym Equipment Cable Column (Body Solid) upright row Resistance TrA, core bracing; pain free; cued for form Reps/Time 2x10 Lat pulldown Details TrA and breath focus; standing , pull to chest Resistance 30# Reps/Time 2x15; pain free; cued strong core brace w/ fatigue Therapeutic Exercises Supine Exercises piriformis stretch Supine Exercise Name 1. figure 4 with opp LE straight/ ft inside thigh, 2. hip IR stretch bent Side bilateral Reps/Minutes 1x60 ea Comments pain free, post manual treatment Other Exercises quadruped Other Exercise Name bird dog (non-alt) with dowel Side bilateral Equipment Used dowel on back Reps/Minutes 1x10 ea Comments tactile cues for excessive pelvic rotation, improved stability Manual Therapy Treatment Soft Tissue Mobilization lumbar paraspinals/quadratus right Mobilization Type Cross-Friction,Rolling, Sustained Pressure Intensity/Depth Moderate Body Position Sidelying Comments R sided tightness, less than previous session with PT. Performed with lateral facet gapping for R sided lengthening, then slight flexion bias with stretching into rotation, PT blocking hip and trunk, into 1x10 open books right hamstring Body Location performed bilaterally Mobilization Type Cross-Friction,Instrument Assisted,Rolling Intensity/Depth Moderate Body Position Sidelying Comments Bilateral rolling of HS Manual Techniques stretching Type contract-relax Body Location B HS Body Position Supine Reps/Duration 1x10 with 5 hold ea Comments Decreased HS tightness post contract-relax PT-OP-T Assessment and Plan Start: 06/27/23 13:45 Freq: Status: Active Protocol: Document 08/25/23 09:03 NM (Rec: 08/25/23 09:50 NM [id number]) Physical Therapy Assessment Goals Six Impairment core stabilization Impairment bird dogs: 1x10 non- alternating modified plank: 8 seconds Usp Goal (LTG) Pt will be able to perform either 15 second modified plank or 10 alternating bird dogs without back pain or compensation in order to demonstrate improvement in core stabilization during lifting and body mechanics LTG Duration 10 weeks GOAL ADDED Five Impairment activity tolerance Impairment Pt w/o HEP Short Term Goal (STG) Pt will report compliance with HEP 2-3/wk in order to demonstrate independence and management of symptoms for return to activity 07/14/23: compliant 2-3x/wk STG Duration 4 weeks MET [employer] Goal (LTG) Pt will report compliance with HEP 3x/wk to demonstrate ability to participate in independent exercise for maintenance program after discharge from PT 08/25/23: 3x/wk LTG Duration 8 weeks MET Four Impairment AROM, ADLs Impairment unable to put on L shoe [employer] Goal (LTG) Pt will report that he is able to put on his L shoe in sitting without compensation or reports of low back pain in order to demonstrate improved ability to participate in dressing ADLs 07/14/23: Pt reports that he is able to put on his L shoe ( both shoes in sitting using hip/knee flexion) without pain or difficulty LTG Duration 8 weeks MET Three Impairment hip IR Impairment R hip IR 15 deg Short Term Goal (STG) Pt will increase R hip IR to at least 20 deg in order to demonstrate improved hip mobility 07/22/23: 22 deg; 30 deg ER 08/16/23: R 20 deg IR, L hip 30 deg IR STG Duration 4 weeks MET [employer] Goal (LTG) Pt will increase R hip IR to at least 22 deg in order to demonstrate improved hip mobility 08/16/23: 20 deg R hip IR 08/25/23: 20 deg IR LTG Duration 8 weeks NOT MET; GOAL UPDATED Two Impairment hip ER Impairment L ER AROM 15 deg Short Term Goal (STG) Pt will improve L ER AROM to at least 20 deg in order to demonstrate increased hip mobility to put on his shoes 07/22/23: 25 deg ER, 30 deg IR STG Duration 4 weeks MET Usp Goal (LTG) Pt will improve L ER AROM to at least 25 deg in order to demonstrate increased hip mobility to put on his shoes 07/22/23: 25 deg ER, 30 deg IR LTG Duration 8 weeks MET One Impairment hamstring length Impairment R hamstring length 140 deg, L hamstring length 150 deg Short Term Goal (STG) Pt will improve B hamstring length by at least 5 deg ea for improved TKE during gait and to improve overall spinal/ hip mobility for improved activity tolerance 07/22/23: 140 deg L, 160 deg R STG Duration 4 weeks PARTIALLY MET Usp Goal (LTG) Pt will improve B hamstring length by at least 10 deg ea for improved TKE during gait and to improve overall spinal/ hip mobility for improved activity tolerance 08/12/23: 160 deg B LTG Duration 8 weeks MET Progress Towards Goals Progress Towards Goals Progressing Toward Goals,Slow Progress - Other,Goals Met Progress Comments Met all goals except Hip IR goal. Assessment Summary Assessment Pt tolerated session well without increase in pain levels. Continued with progressive strengthening. Pt requires cues for core bracing , form especially as he fatigues. Pt challenged by planks and bird dogs. Cued for breathing, maintaining stable and neutral spine with core bracing; tactile cue of dowel to maintain stability. Progressed to standing lat pull downs. Cued to maintain strong core bracing and staggered stance in order to prevent trunk/knee extension compensation. Physical Therapy Plan Frequency and Duration Frequency of Treatment 1x/Week Duration of treatment (weeks) 10 Plan of Care Start Date 08/25/23 Plan of Care End Date 11/04/23 Therapeutic Interventions Therapeutic Interventions Aquatic Therapy,Balance Training,Coordination Training ,Gait Training,Home Exercise Program,Joint Mobilizations, Manual Therapy,Neuromuscular Re-education,Orthotic/ Prosthetic Management,Patient/ Caregiver Education,Self-Care/ Home Management,Sensory Integration,Soft Tissue Mobilization,Taping, Therapeutic Activities, Therapeutic Exercises Modalities Biofeedback,Cold Pack/Ice Massage,Electric Stimulation, Hot Packs,Traction- Mechanical ,Ultrasound,Vasopneumatic Devices Other Therapeutic Interventions Manual traction, self traction Next Visit Focus/Plan Next Note Type Treatment Note Next Visit Plan Next session: cont hip mobility and stretching for flexibility, LAQ cables, pallof on scottish ball, bird dog , side steps, plank (modified or bear plank), leg press, carries, squat with weight, hip mobilizations POC: Next session: manual tx to LS paraspinals, glutes, iliacus, psoas, quad, HS; check tolerance to stretches, HEP, STM Continue lumbar spine/hip stretching (knee to chest, ER, IR, HS), initiated mobility ( cat camel, thread needle, seated ball rocking) strengthening Initiate daily foot checks, est HEP/daily exercise and walking program Precautions: no excessive spinal flexion due to anterolisthesis, grade III mob max, limit end range ext
--- NOTE | 2023-08-25 15:36 | PT.OPPOC ---
Physical, Occupational & Speech Therapy At [facility] Current Diagnoses Low back pain, unspecified (08/25/23) Unspecified abnormalities of gait and mobility (08/25/23) Weakness (08/25/23) Visit Care Team Role Provider Type Binh Canas MD Family Provider Physician Primary Care Provider Specialty: Family Practice Address: [facility] [place], [address] Email: [email or web address] Aidan Chin MD Attending Provider Non-Staff Referring Provider Specialty: Neurosurgery Address: [address] [place], [place] [address], [address] Email: Plan Of Care PT-OP-T Assessment and Plan Start: 06/27/23 13:45 Freq: Status: Active Protocol: Document 08/25/23 09:03 NM (Rec: 08/25/23 09:50 NM [id number]) Physical Therapy Assessment Goals Six Impairment core stabilization Impairment bird dogs: 1x10 non- alternating modified plank: 8 seconds Ophthalmology Technician Goal (LTG) Pt will be able to perform either 15 second modified plank or 10 alternating bird dogs without back pain or compensation in order to demonstrate improvement in core stabilization during lifting and body mechanics LTG Duration 10 weeks GOAL ADDED Five Impairment activity tolerance Impairment Pt w/o HEP Short Term Goal (STG) Pt will report compliance with HEP 2-3/wk in order to demonstrate independence and management of symptoms for return to activity 07/14/23: compliant 2-3x/wk STG Duration 4 weeks MET Long-Term Goal (LTG) Pt will report compliance with HEP 3x/wk to demonstrate ability to participate in independent exercise for maintenance program after discharge from PT 08/25/23: 3x/wk LTG Duration 8 weeks MET Four Impairment AROM, ADLs Impairment unable to put on L shoe Long-Term Goal (LTG) Pt will report that he is able to put on his L shoe in sitting without compensation or reports of low back pain in order to demonstrate improved ability to participate in dressing ADLs 07/14/23: Pt reports that he is able to put on his L shoe ( both shoes in sitting using hip/knee flexion) without pain or difficulty LTG Duration 8 weeks MET Three Impairment hip IR Impairment R hip IR 15 deg Short Term Goal (STG) Pt will increase R hip IR to at least 20 deg in order to demonstrate improved hip mobility 07/22/23: 22 deg; 30 deg ER 08/16/23: R 20 deg IR, L hip 30 deg IR STG Duration 4 weeks MET Long-Term Goal (LTG) Pt will increase R hip IR to at least 22 deg in order to demonstrate improved hip mobility 08/16/23: 20 deg R hip IR 08/25/23: 20 deg IR LTG Duration 8 weeks NOT MET; GOAL UPDATED Two Impairment hip ER Impairment L ER AROM 15 deg Short Term Goal (STG) Pt will improve L ER AROM to at least 20 deg in order to demonstrate increased hip mobility to put on his shoes 07/22/23: 25 deg ER, 30 deg IR STG Duration 4 weeks MET Long-Term Goal (LTG) Pt will improve L ER AROM to at least 25 deg in order to demonstrate increased hip mobility to put on his shoes 07/22/23: 25 deg ER, 30 deg IR LTG Duration 8 weeks MET One Impairment hamstring length Impairment R hamstring length 140 deg, L hamstring length 150 deg Short Term Goal (STG) Pt will improve B hamstring length by at least 5 deg ea for improved TKE during gait and to improve overall spinal/ hip mobility for improved activity tolerance 07/22/23: 140 deg L, 160 deg R STG Duration 4 weeks PARTIALLY MET Long-Term Goal (LTG) Pt will improve B hamstring length by at least 10 deg ea for improved TKE during gait and to improve overall spinal/ hip mobility for improved activity tolerance 08/12/23: 160 deg B LTG Duration 8 weeks MET Progress Towards Goals Progress Towards Goals Progressing Toward Goals,Slow Progress - Other,Goals Met Progress Comments Met all goals except Hip IR goal. Assessment Summary Assessment Pt has been seen x14 visits since June for low back pain. Pt reports pain more infrequently since IE, and states he has had improvements in ability to perform ADLs and recreational activities due to pain. He continues to have decreased R hip mobility and B hamstring length, which influences his ability to perform ADLs and low back pain . Pt recently had exacerbation in low back pain, which created recent setback in progress. He is currently improving with less pain and ability to tolerate improved activity, but still limited. Pt progressed well toward goals and met 4/5. He is still progressing toward hip mobility goals. New goal added to address functional core stabilization. Pt would benefit from further skilled PT for body mechanics training , progressive lumbar/core strengthening and stabilization, and flexibility training in order to improve activity tolerance, improve symptom management, and return to PLOF. Physical Therapy Plan Frequency and Duration Frequency of Treatment 1x/Week Duration of treatment (weeks) 10 Plan of Care Start Date 08/25/23 Plan of Care End Date 11/04/23 Therapeutic Interventions Therapeutic Interventions Aquatic Therapy,Balance Training,Coordination Training ,Gait Training,Home Exercise Program,Joint Mobilizations, Manual Therapy,Neuromuscular Re-education,Orthotic/ Prosthetic Management,Patient/ Caregiver Education,Self-Care/ Home Management,Sensory Integration,Soft Tissue Mobilization,Taping, Therapeutic Activities, Therapeutic Exercises Modalities Biofeedback,Cold Pack/Ice Massage,Electric Stimulation, Hot Packs,Traction- Mechanical ,Ultrasound,Vasopneumatic Devices Other Therapeutic Interventions Manual traction, self traction Next Visit Focus/Plan Next Note Type Treatment Note Next Visit Plan Next session: cont hip mobility and stretching for flexibility, LAQ cables, pallof on paraguayan ball, bird dog , side steps, plank (modified or bear plank), leg press, carries, squat with weight, hip mobilizations Precautions: no excessive spinal flexion due to anterolisthesis, grade III mob max, limit end range ext Plan of Care Dates Plan of Care Start Date 08/25/23 Plan of Care End Date 11/04/23 Electronically Signed by: Gricelda Mckoy, PT 08/26/23 0958 If you are in agreement with this Plan of Care, please return a signed and dated copy. I have reviewed this Plan of Care and certify that the skilled therapy services above are required to meet the patient?s needs. Physician Signature Date Printed Name and Credentials Clinical Instructor Signature Printed Name and Credentials
--- NOTE | 2023-09-16 16:34 | PT.OTN ---
Current Diagnoses Low back pain, unspecified (09/16/23) Unspecified abnormalities of gait and mobility (09/16/23) Weakness (09/16/23) Physical Therapy Treatment Note PT-OP-A Visit Information Start: 06/27/23 13:45 Freq: Status: Active Protocol: Document 09/16/23 12:53 AB (Rec: 09/16/23 16:34 AB [id number]) Out-Patient Physical Therapy Visit Information Visit Information Visit Type Treatment Note Visit Note KX after 19 visits Visit Start Time 14:35 Visit Stop Time 15:15 Visit Number 16 Number of HOME STAGER Visits 1 Evaluation Information Evaluation Date 06/27/23 Precautions Precautions Ant wedge deformity (L1), Anterolisthesis L4-L5, Hx of lumbar surgery PT-OP-B Current Condition Start: 06/27/23 13:45 Freq: Status: Active Protocol: Document 06/27/23 13:46 NM (Rec: 06/27/23 17:22 NM [id number]) Current Condition History of Current Condition Onset Date summer 2022 Current Complaints pain, decreased activity History of Current Condition Pt presents with low back pain . No known RONY. He has a hx of surgery for a pinched nerve he thinks left L3-5, a decade. Surgeon and pt to try conservative care. Pt is concerned that he has arthritis. The pain has worsened throughout 2022, with difficulty performing ADLs. He reports that his pain has significantly improved over the past 2 months but continues to exist. 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 He did have minimal back pain during summer, but it gradually worsened over the fall. Pt reports prn numbness /tingling L over the course of 10 years but none currently. Reports difficulty with sleeping after 6-7 hrs (total 8-10- sleeping on R side, pillow between knees), putting on shoes. He reports that he has been moving very gingerly to prevent. He has had episodic pain about 2 senior ago when shoveling snow, pain for about 2 months. Hx of tight hamstrings; no gym since covid Prior Treatments and Tests Previous PT prior to surgery MRI 04/2023: Ant wedge deformity (L1), Anterolisthesis L4-L5, Degenerative changes Prior Functional Status Baseline Function- ADL's Independent Baseline Function- Mobility Independent Baseline Function- Gait Walk >1 hr Baseline Function- Recreation/Hobbies Bikes [employer] Baseline Function- Other No difficulty with dressing Current Functional Impairments (Reported) Functional Limitations- ADL's Difficulty with putting on shoes Functional Limitations- Mobility/Gait Limited 1 hr max with gait; stand 1/2 hr before painful; painful sit>stand Functional Limitations- Recreation/ Does not participate due to Hobbies fear of pain Functional Limitations- Other sleeps on R side with pillow between knees for 6-7 hrs before wakes due to pain PT-OP-C Subjective Start: 06/27/23 13:45 Freq: Status: Active Protocol: Document 09/16/23 12:53 AB (Rec: 09/16/23 16:34 AB [id number]) OP-PT Subjective Patient Comments Patient Comments Patient reports he is much better, has a 1/10 pain left side of back for the past week or so. Patient reports if he had to get up from the floor he thinks it would hurt. Patient reports he is back to riding his bike, comments he has a little tension on the right side of his back after a long ride. Patient reports exercising every other day and checks his feet daily. PT-OP-E Functional Tests Start: 06/27/23 13:45 Freq: Status: Active Protocol: Document 06/27/23 13:46 NM (Rec: 06/27/23 17:22 NM [id number]) Functional Tests 30 Second Sit to Stand Test Score 14 Comments reports no pain with transition to stand, increased flexed trunk PT-OP-F Manual Assessment Start: 06/27/23 13:45 Freq: Status: Active Protocol: Document 06/27/23 13:46 NM (Rec: 06/27/23 17:22 NM [id number]) Manual Assessments Soft Tissue Assessment Soft Tissue Mobility Assessment Bilateral hamstring tightness. Increased tone of lumbar paraspinals, L>R Joint Mobility Assessment Joint Mobility Assessment Hypomobility of thoracic and lumbar spine with P-A springing of spinous processes . Decreased hip ER/IR bilaterally in sitting and supine. Unable to placed L ankle over R knee (e.g. to put on shoes) PT-OP-G Mobility & Gait Start: 06/27/23 13:45 Freq: Status: Active Protocol: Document 06/27/23 13:46 NM (Rec: 06/27/23 17:22 NM [id number]) OP Gait Assessment Gait Gait Assistance Required: Independent Distance (Feet) 200 Assistive Devices Assistive Device None Gait Deviations General Gait Pattern Antalgic,Flexed Trunk,Wide Based Gait Factors Limiting Gait Function Factors Limiting Gait Function Decreased Sensation,Decreased Strength,Poor Balance Comments Gait Comments Decreased trunk rotation with gait, B external rotation of feet, flexed trunk posture; wider FREDY PT-OP-H Neuro Start: 06/27/23 13:45 Freq: Status: Active Protocol: Document 06/27/23 13:46 NM (Rec: 06/27/23 17:22 NM [id number]) Sensation Evaluation Gross Sensation Gross Sensation Left LE Impaired,Right LE Impaired Comments Summary Comments Decreased light touch sensation along dorsal and plantar surfaces of feet; other BLE dermatomes intact PT-OP-J Posture/Palpation/Skin Start: 06/27/23 13:45 Freq: Status: Active Protocol: Document 06/27/23 13:46 NM (Rec: 06/27/23 17:22 NM [id number]) Posture Evaluation Position Standing Evaluation View posterior, lateral Head/C-Spine Posture Forward Head L-Spine Posture Fixed Scoliosis on (R) Shoulder Posture (L) Rounded,(R) Rounded,(L) Elevated Arm Posture (L) Internally Rotated,(R) Internally Rotated Pelvis Posture Anteriorly Tilted,(R) Iliac Crest Superior Weight Distribution Balanced Hip Posture (L) Externally Rotated,(R) Externally Rotated Knee Posture (L) Genu Varus,(R) Genu Varus Patellar Posture (L) Superior,(R) Superior Ankle/Foot Posture (L) Neutral,(R) Neutral Comments Posture Comments Dextroscoliosis lumbar spine Palpation Assessment Location lumbar spine Palpation Location paraspinals, glutes, QL, L1-L5 spinous processes, PSIS, SIJ Palpation Findings Soft Tissue Tightness Palpation Details Tenderness along B PSIS, L>R. No tenderness along spinous or transverse processes of L spine. No tenderness of B SIJ. No tenderness of glutes, hip external rotators, greater trochanter, proximal hamstrings. Increased soft tissue tightness of lumbar paraspinals, QL PT-OP-K Range of Motion Start: 06/27/23 13:45 Freq: Status: Active Protocol: Document 08/25/23 09:03 NM (Rec: 08/25/23 09:50 NM [id number]) Lumbar Spine Range of Motion Lumbar Spine Active Percentage Testing Position Standing Flexion 80 Extension 50 Rotation Left 3 Rotation Right 3 Lateral Flexion Left 75 Lateral Flexion Right 75 ROM Limitations Soft Tissue Tightness,Pain Comments IE: 50% flex and ext, 3 cm B rot, 50% B lateral flex; Reports minimal pain/pulling with spinal extension. No pain with rotation or flexion. Demos decreased hamstring length with flexion (to knees) and lateral flexion (to mid lateral thigh) 07/22/23: 75% flex, 100% ext, 50% B lateral flex, B 5 cm rotation; tightness only in HS with flex, low back with SB but no pain 08/25/23: slight pull with L lateral flexion, 75% flex, 75% SB bilateral Hip Goniometric Range of Motion Hip right Flexion w/Knee Flexed 110 Straight Leg Raise 80 Internal Rotation 20 External Rotation 30 Comments IE: 15 deg IR, 25 deg ER; Hamstring length: 140 deg 07/22/23: IR 22 deg, ER 30 deg 08/25/23: IR 20 deg, ER 30 deg; HS: 150 deg left Testing Position Supine Flexion w/Knee Flexed 112 Straight Leg Raise 70 Internal Rotation 35 External Rotation 30 Comments Ie: 20 deg IR, 15 deg ER; Hamstring length: 150 deg; pt reports feels more restricted 07/22/23: IR 30 deg, ER 25 deg 08/25/23: IR 35, ER 30 deg; HS: 150 deg PT-OP-L Special Tests Start: 06/27/23 13:45 Freq: Status: Active Protocol: Document 06/27/23 13:46 NM (Rec: 06/27/23 17:22 NM [id number]) Special Tests Lumbar Spine Special Tests SIJ Thigh thrust Test Results - SIJ Anterior gapping Test Results - Distraction Test Results + Comments reports relief Pierre/Quadrant Test Results - Comments no local or referred pain with 3D testing Straight Leg Raise Test Results + Slump Test Results + Comments improved with head ext Hip Special Tests NGA Test Results - Comments Unable to perform fully due to ROM limitations on LLE FADIR Test Results - PT-OP-M Strength Start: 06/27/23 13:45 Freq: Status: Active Protocol: Document 07/22/23 10:34 NM (Rec: 07/22/23 11:16 NM [id number]) Trunk Strength Trunk Manual Muscle Testing Testing Position Sitting Flexion 4 Good Extension 4 Good Rotation Left 3+ Fair+ Rotation Right 3+ Fair+ Lateral Flexion Left 3+ Fair+ Lateral Flexion Right 3+ Fair+ Comments No pain with resisted testing. Decreased ability to stabilize against frontal plane resistance 07/22/23: 5/5 for all, no pain PT-OP-Q Treatments Start: 06/27/23 13:45 Freq: Status: Active Protocol: Document 09/16/23 12:53 AB (Rec: 09/16/23 16:34 AB [id number]) Therapeutic Exercises Supine Exercises abdominal bracing with LE extension Side bilateral Reps/Minutes X10 Comments verbal cues to brace with abdominals as LE moves away from core piriformis stretch Supine Exercise Name piriformis from hookling and figure 4 Side bilateral Reps/Minutes 2x60 ea Standing Exercises sit to stand Side bilateral Resistance holding 3 lb weights Equipment Used to plinth Reps/Minutes X15 Comments VC for hip hinge step up Standing Exercise Name 6 step up Side right Reps/Minutes X2 Comments reports it doesn't hurt, but will with increased repetitions Manual Therapy Treatment Soft Tissue Mobilization lumbar paraspinals/quadratus right Body Location right Mobilization Type Sustained Pressure Intensity/Depth Moderate Body Position Sidelying Comments R sided tightness, less than previous session with PT. Performed with lateral facet gapping for R sided lengthening, then slight flexion bias with stretching into rotation, PT blocking hip and trunk, into 1x10 open books right glute/piriformis Body Location bilateral Mobilization Type Cross-Friction,Rolling Intensity/Depth Moderate Body Position Sidelying Comments monitored for pain prior to stretch PT-OP-T Assessment and Plan Start: 06/27/23 13:45 Freq: Status: Active Protocol: Document 09/16/23 12:53 AB (Rec: 09/16/23 16:34 AB [id number]) Physical Therapy Assessment Goals Six Impairment core stabilization Impairment bird dogs: 1x10 non- alternating modified plank: 8 seconds Rag Grader Goal (LTG) Pt will be able to perform either 15 second modified plank or 10 alternating bird dogs without back pain or compensation in order to demonstrate improvement in core stabilization during lifting and body mechanics LTG Duration 10 weeks GOAL ADDED Five Impairment activity tolerance Impairment Pt w/o HEP Short Term Goal (STG) Pt will report compliance with HEP 2-3/wk in order to demonstrate independence and management of symptoms for return to activity 07/14/23: compliant 2-3x/wk STG Duration 4 weeks MET [facility] Goal (LTG) Pt will report compliance with HEP 3x/wk to demonstrate ability to participate in independent exercise for maintenance program after discharge from PT 08/25/23: 3x/wk LTG Duration 8 weeks MET Four Impairment AROM, ADLs Impairment unable to put on L shoe Rag Grader Goal (LTG) Pt will report that he is able to put on his L shoe in sitting without compensation or reports of low back pain in order to demonstrate improved ability to participate in dressing ADLs 07/14/23: Pt reports that he is able to put on his L shoe ( both shoes in sitting using hip/knee flexion) without pain or difficulty LTG Duration 8 weeks MET Three Impairment hip IR Impairment R hip IR 15 deg Short Term Goal (STG) Pt will increase R hip IR to at least 20 deg in order to demonstrate improved hip mobility 07/22/23: 22 deg; 30 deg ER 08/16/23: R 20 deg IR, L hip 30 deg IR STG Duration 4 weeks MET Rag Grader Goal (LTG) Pt will increase R hip IR to at least 22 deg in order to demonstrate improved hip mobility 08/16/23: 20 deg R hip IR 08/25/23: 20 deg IR LTG Duration 8 weeks NOT MET; GOAL UPDATED Two Impairment hip ER Impairment L ER AROM 15 deg Short Term Goal (STG) Pt will improve L ER AROM to at least 20 deg in order to demonstrate increased hip mobility to put on his shoes 07/22/23: 25 deg ER, 30 deg IR STG Duration 4 weeks MET Rag Grader Goal (LTG) Pt will improve L ER AROM to at least 25 deg in order to demonstrate increased hip mobility to put on his shoes 07/22/23: 25 deg ER, 30 deg IR LTG Duration 8 weeks MET One Impairment hamstring length Impairment R hamstring length 140 deg, L hamstring length 150 deg Short Term Goal (STG) Pt will improve B hamstring length by at least 5 deg ea for improved TKE during gait and to improve overall spinal/ hip mobility for improved activity tolerance 07/22/23: 140 deg L, 160 deg R STG Duration 4 weeks PARTIALLY MET [facility] Goal (LTG) Pt will improve B hamstring length by at least 10 deg ea for improved TKE during gait and to improve overall spinal/ hip mobility for improved activity tolerance 08/12/23: 160 deg B LTG Duration 8 weeks MET Assessment Summary Assessment Patient reports feeling good. HEP partially condensed and progressed this session. Physical Therapy Plan Frequency and Duration Frequency of Treatment 1x/Week Duration of treatment (weeks) 10 Plan of Care Start Date 08/25/23 Plan of Care End Date 11/04/23 Next Visit Focus/Plan Next Note Type Treatment Note Next Visit Plan Next session: continue condensing HEP. cont hip mobility and stretching for flexibility, LAQ cables, pallof on tuvaluan ball, bird dog , side steps, plank (modified or bear plank), leg press, carries, squat with weight, hip mobilizations POC: Next session: manual tx to LS paraspinals, glutes, iliacus, psoas, quad, HS; check tolerance to stretches, HEP, STM Continue lumbar spine/hip stretching (knee to chest, ER, IR, HS), initiated mobility ( cat camel, thread needle, seated ball rocking) strengthening Initiate daily foot checks, est HEP/daily exercise and walking program Precautions: no excessive spinal flexion due to anterolisthesis, grade III mob max, limit end range ext
--- NOTE | 2023-09-30 12:58 | PT.OTN ---
Current Diagnoses Low back pain, unspecified (09/30/23) Unspecified abnormalities of gait and mobility (09/30/23) Weakness (09/30/23) Physical Therapy Treatment Note PT-OP-A Visit Information Start: 06/27/23 13:45 Freq: Status: Active Protocol: Document 09/30/23 08:10 AB (Rec: 09/30/23 12:58 AB [id number]) Out-Patient Physical Therapy Visit Information Visit Information Visit Type Treatment Note Visit Note KX after 19 visits Visit Start Time 09:45 Visit Stop Time 10:33 Visit Number 17 Number of [employer] SUPERVISOR Visits 2 Evaluation Information Evaluation Date 06/27/23 Precautions Precautions Ant wedge deformity (L1), Anterolisthesis L4-L5, Hx of lumbar surgery PT-OP-B Current Condition Start: 06/27/23 13:45 Freq: Status: Active Protocol: Document 06/27/23 13:46 NM (Rec: 06/27/23 17:22 NM [id number]) Current Condition History of Current Condition Onset Date summer 2022 Current Complaints pain, decreased activity History of Current Condition Pt presents with low back pain . No known RONY. He has a hx of surgery for a pinched nerve he thinks left L3-5, a decade. Surgeon and pt to try conservative care. Pt is concerned that he has arthritis. The pain has worsened throughout 2022, with difficulty performing ADLs. He reports that his pain has significantly improved over the past 2 months but continues to exist. 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 He did have minimal back pain during summer, but it gradually worsened over the fall. Pt reports prn numbness /tingling L over the course of 10 years but none currently. Reports difficulty with sleeping after 6-7 hrs (total 8-10- sleeping on R side, pillow between knees), putting on shoes. He reports that he has been moving very gingerly to prevent. He has had episodic pain about 2 senior ago when shoveling snow, pain for about 2 months. Hx of tight hamstrings; no gym since covid Prior Treatments and Tests Previous PT prior to surgery MRI 04/2023: Ant wedge deformity (L1), Anterolisthesis L4-L5, Degenerative changes Prior Functional Status Baseline Function- ADL's Independent Baseline Function- Mobility Independent Baseline Function- Gait Walk >1 hr Baseline Function- Recreation/Hobbies Bikes [email or web address] Baseline Function- Other No difficulty with dressing Current Functional Impairments (Reported) Functional Limitations- ADL's Difficulty with putting on shoes Functional Limitations- Mobility/Gait Limited 1 hr max with gait; stand 1/2 hr before painful; painful sit>stand Functional Limitations- Recreation/ Does not participate due to Hobbies fear of pain Functional Limitations- Other sleeps on R side with pillow between knees for 6-7 hrs before wakes due to pain PT-OP-C Subjective Start: 06/27/23 13:45 Freq: Status: Active Protocol: Document 09/30/23 08:10 AB (Rec: 09/30/23 12:58 AB [id number]) OP-PT Subjective Patient Comments Patient Comments Patient reports his pain is 0/ 10, has muliple long bike rides with no increased pain. Patient requesting discharge and is into session with his HEP program in hand. PT-OP-E Functional Tests Start: 06/27/23 13:45 Freq: Status: Active Protocol: Document 06/27/23 13:46 NM (Rec: 06/27/23 17:22 NM [id number]) Functional Tests 30 Second Sit to Stand Test Score 14 Comments reports no pain with transition to stand, increased flexed trunk PT-OP-F Manual Assessment Start: 06/27/23 13:45 Freq: Status: Active Protocol: Document 06/27/23 13:46 NM (Rec: 06/27/23 17:22 NM [id number]) Manual Assessments Soft Tissue Assessment Soft Tissue Mobility Assessment Bilateral hamstring tightness. Increased tone of lumbar paraspinals, L>R Joint Mobility Assessment Joint Mobility Assessment Hypomobility of thoracic and lumbar spine with P-A springing of spinous processes . Decreased hip ER/IR bilaterally in sitting and supine. Unable to placed L ankle over R knee (e.g. to put on shoes) PT-OP-G Mobility & Gait Start: 06/27/23 13:45 Freq: Status: Active Protocol: Document 06/27/23 13:46 NM (Rec: 06/27/23 17:22 NM [id number]) OP Gait Assessment Gait Gait Assistance Required: Independent Distance (Feet) 200 Assistive Devices Assistive Device None Gait Deviations General Gait Pattern Antalgic,Flexed Trunk,Wide Based Gait Factors Limiting Gait Function Factors Limiting Gait Function Decreased Sensation,Decreased Strength,Poor Balance Comments Gait Comments Decreased trunk rotation with gait, B external rotation of feet, flexed trunk posture; wider FREDY PT-OP-H Neuro Start: 06/27/23 13:45 Freq: Status: Active Protocol: Document 06/27/23 13:46 NM (Rec: 06/27/23 17:22 NM [id number]) Sensation Evaluation Gross Sensation Gross Sensation Left LE Impaired,Right LE Impaired Comments Summary Comments Decreased light touch sensation along dorsal and plantar surfaces of feet; other BLE dermatomes intact PT-OP-J Posture/Palpation/Skin Start: 06/27/23 13:45 Freq: Status: Active Protocol: Document 06/27/23 13:46 NM (Rec: 06/27/23 17:22 NM [id number]) Posture Evaluation Position Standing Evaluation View posterior, lateral Head/C-Spine Posture Forward Head L-Spine Posture Fixed Scoliosis on (R) Shoulder Posture (L) Rounded,(R) Rounded,(L) Elevated Arm Posture (L) Internally Rotated,(R) Internally Rotated Pelvis Posture Anteriorly Tilted,(R) Iliac Crest Superior Weight Distribution Balanced Hip Posture (L) Externally Rotated,(R) Externally Rotated Knee Posture (L) Genu Varus,(R) Genu Varus Patellar Posture (L) Superior,(R) Superior Ankle/Foot Posture (L) Neutral,(R) Neutral Comments Posture Comments Dextroscoliosis lumbar spine Palpation Assessment Location lumbar spine Palpation Location paraspinals, glutes, QL, L1-L5 spinous processes, PSIS, SIJ Palpation Findings Soft Tissue Tightness Palpation Details Tenderness along B PSIS, L>R. No tenderness along spinous or transverse processes of L spine. No tenderness of B SIJ. No tenderness of glutes, hip external rotators, greater trochanter, proximal hamstrings. Increased soft tissue tightness of lumbar paraspinals, QL PT-OP-K Range of Motion Start: 06/27/23 13:45 Freq: Status: Active Protocol: Document 08/25/23 09:03 NM (Rec: 08/25/23 09:50 NM [id number]) Lumbar Spine Range of Motion Lumbar Spine Active Percentage Testing Position Standing Flexion 80 Extension 50 Rotation Left 3 Rotation Right 3 Lateral Flexion Left 75 Lateral Flexion Right 75 ROM Limitations Soft Tissue Tightness,Pain Comments IE: 50% flex and ext, 3 cm B rot, 50% B lateral flex; Reports minimal pain/pulling with spinal extension. No pain with rotation or flexion. Demos decreased hamstring length with flexion (to knees) and lateral flexion (to mid lateral thigh) 07/22/23: 75% flex, 100% ext, 50% B lateral flex, B 5 cm rotation; tightness only in HS with flex, low back with SB but no pain 08/25/23: slight pull with L lateral flexion, 75% flex, 75% SB bilateral Hip Goniometric Range of Motion Hip right Flexion w/Knee Flexed 110 Straight Leg Raise 80 Internal Rotation 20 External Rotation 30 Comments IE: 15 deg IR, 25 deg ER; Hamstring length: 140 deg 07/22/23: IR 22 deg, ER 30 deg 08/25/23: IR 20 deg, ER 30 deg; HS: 150 deg left Testing Position Supine Flexion w/Knee Flexed 112 Straight Leg Raise 70 Internal Rotation 35 External Rotation 30 Comments Ie: 20 deg IR, 15 deg ER; Hamstring length: 150 deg; pt reports feels more restricted 07/22/23: IR 30 deg, ER 25 deg 08/25/23: IR 35, ER 30 deg; HS: 150 deg PT-OP-L Special Tests Start: 06/27/23 13:45 Freq: Status: Active Protocol: Document 06/27/23 13:46 NM (Rec: 06/27/23 17:22 NM [id number]) Special Tests Lumbar Spine Special Tests SIJ Thigh thrust Test Results - SIJ Anterior gapping Test Results - Distraction Test Results + Comments reports relief Pierre/Quadrant Test Results - Comments no local or referred pain with 3D testing Straight Leg Raise Test Results + Slump Test Results + Comments improved with head ext Hip Special Tests NGA Test Results - Comments Unable to perform fully due to ROM limitations on LLE FADIR Test Results - PT-OP-M Strength Start: 06/27/23 13:45 Freq: Status: Active Protocol: Document 07/22/23 10:34 NM (Rec: 07/22/23 11:16 NM [id number]) Trunk Strength Trunk Manual Muscle Testing Testing Position Sitting Flexion 4 Good Extension 4 Good Rotation Left 3+ Fair+ Rotation Right 3+ Fair+ Lateral Flexion Left 3+ Fair+ Lateral Flexion Right 3+ Fair+ Comments No pain with resisted testing. Decreased ability to stabilize against frontal plane resistance 07/22/23: 5/5 for all, no pain PT-OP-Q Treatments Start: 06/27/23 13:45 Freq: Status: Active Protocol: Document 09/30/23 08:10 AB (Rec: 09/30/23 12:58 AB [id number]) Therapeutic Exercises Supine Exercises abdominal bracing with LE extension Side bilateral Reps/Minutes X10 Comments verbal cues to brace with abdominals as LE moves away from core hamstring stretch Supine Exercise Name from hooklying Side bilateral Reps/Minutes 2x60 Comments pain free bridge Supine Exercise Name single leg bridge Side bilateral Reps/Minutes X10 Comments monitored for pain Shawn stretch Side bilateral Reps/Minutes 60 X2 Comments VC for opp knee to chest piriformis stretch Supine Exercise Name piriformis from hookling and figure 4 Side bilateral Reps/Minutes 1x60 ea Prone Exercises pigeon Prone Exercise Name trialed in PT: for increased hip mobility Side bilateral Equipment Used plinth, no trunk flexion Reps/Minutes 1x30 Comments reports good stretch, limited hip mobility Standing Exercises LAQ Side bilateral Resistance lvl 4 tb (blue) Reps/Minutes x10 Comments Pt ed to perform post hamstring stretch Manual Therapy Treatment Soft Tissue Mobilization right hamstring Body Location performed bilaterally Mobilization Type Cross-Friction,Rolling Intensity/Depth Moderate Body Position Prone Comments prior to stretch PT-OP-T Assessment and Plan Start: 06/27/23 13:45 Freq: Status: Active Protocol: Document 09/30/23 08:10 AB (Rec: 09/30/23 12:58 AB [id number]) Physical Therapy Assessment Goals Six Impairment core stabilization Impairment bird dogs: 1x10 non- alternating modified plank: 8 seconds Ship Rigger Goal (LTG) Pt will be able to perform either 15 second modified plank or 10 alternating bird dogs without back pain or compensation in order to demonstrate improvement in core stabilization during lifting and body mechanics LTG Duration 10 weeks GOAL ADDED Five Impairment activity tolerance Impairment Pt w/o HEP Short Term Goal (STG) Pt will report compliance with HEP 2-3/wk in order to demonstrate independence and management of symptoms for return to activity 07/14/23: compliant 2-3x/wk STG Duration 4 weeks MET Mcc Goal (LTG) Pt will report compliance with HEP 3x/wk to demonstrate ability to participate in independent exercise for maintenance program after discharge from PT 08/25/23: 3x/wk LTG Duration 8 weeks MET Four Impairment AROM, ADLs Impairment unable to put on L shoe Mcc Goal (LTG) Pt will report that he is able to put on his L shoe in sitting without compensation or reports of low back pain in order to demonstrate improved ability to participate in dressing ADLs 07/14/23: Pt reports that he is able to put on his L shoe ( both shoes in sitting using hip/knee flexion) without pain or difficulty LTG Duration 8 weeks MET Three Impairment hip IR Impairment R hip IR 15 deg Short Term Goal (STG) Pt will increase R hip IR to at least 20 deg in order to demonstrate improved hip mobility 07/22/23: 22 deg; 30 deg ER 08/16/23: R 20 deg IR, L hip 30 deg IR STG Duration 4 weeks MET Mcc Goal (LTG) Pt will increase R hip IR to at least 22 deg in order to demonstrate improved hip mobility 08/16/23: 20 deg R hip IR 08/25/23: 20 deg IR LTG Duration 8 weeks NOT MET; GOAL UPDATED Two Impairment hip ER Impairment L ER AROM 15 deg Short Term Goal (STG) Pt will improve L ER AROM to at least 20 deg in order to demonstrate increased hip mobility to put on his shoes 07/22/23: 25 deg ER, 30 deg IR STG Duration 4 weeks MET Ship Rigger Goal (LTG) Pt will improve L ER AROM to at least 25 deg in order to demonstrate increased hip mobility to put on his shoes 07/22/23: 25 deg ER, 30 deg IR LTG Duration 8 weeks MET One Impairment hamstring length Impairment R hamstring length 140 deg, L hamstring length 150 deg Short Term Goal (STG) Pt will improve B hamstring length by at least 5 deg ea for improved TKE during gait and to improve overall spinal/ hip mobility for improved activity tolerance 07/22/23: 140 deg L, 160 deg R STG Duration 4 weeks PARTIALLY MET Ship Rigger Goal (LTG) Pt will improve B hamstring length by at least 10 deg ea for improved TKE during gait and to improve overall spinal/ hip mobility for improved activity tolerance 08/12/23: 160 deg B LTG Duration 8 weeks MET Assessment Summary Assessment HEP condensed fully. Patient reports having no pain end of session. Physical Therapy Plan Frequency and Duration Frequency of Treatment 1x/Week Duration of treatment (weeks) 10 Plan of Care Start Date 08/25/23 Plan of Care End Date 11/04/23 Next Visit Focus/Plan Next Note Type Discharge Summary Next Visit Plan Possible discharge as per PT recommendation. Patient advised to keep one more appointment with P.T. to assess aye/regression with condensing HEP
--- NOTE | 2023-10-07 11:28 | PT.OTN ---
Current Diagnoses Low back pain, unspecified (10/07/23) Unspecified abnormalities of gait and mobility (10/07/23) Weakness (10/07/23) Physical Therapy Treatment Note PT-OP-A Visit Information Start: 06/27/23 13:45 Freq: Status: Active Protocol: Document 10/07/23 08:57 NM (Rec: 10/07/23 09:46 NM [id number]) Out-Patient Physical Therapy Visit Information Visit Information Visit Type Discharge Summary Visit Note KX after 19 visits Visit Start Time 08:58 Visit Stop Time 09:40 Visit Number [id number] Evaluation Information Evaluation Date 06/27/23 PT-OP-B Current Condition Start: 06/27/23 13:45 Freq: Status: Active Protocol: Document 06/27/23 13:46 NM (Rec: 06/27/23 17:22 NM [id number]) Current Condition History of Current Condition Onset Date summer 2022 Current Complaints pain, decreased activity History of Current Condition Pt presents with low back pain . No known RONY. He has a hx of surgery for a pinched nerve he thinks left L3-5, a decade. Surgeon and pt to try conservative care. Pt is concerned that he has arthritis. The pain has worsened throughout 2022, with difficulty performing ADLs. He reports that his pain has significantly improved over the past 2 months but continues to exist. 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 He did have minimal back pain during summer, but it gradually worsened over the fall. Pt reports prn numbness /tingling L over the course of 10 years but none currently. Reports difficulty with sleeping after 6-7 hrs (total 8-10- sleeping on R side, pillow between knees), putting on shoes. He reports that he has been moving very gingerly to prevent. He has had episodic pain about 2 senior ago when shoveling snow, pain for about 2 months. Hx of tight hamstrings; no gym since covid Prior Treatments and Tests Previous PT prior to surgery MRI 04/2023: Ant wedge deformity (L1), Anterolisthesis L4-L5, Degenerative changes Prior Functional Status Baseline Function- ADL's Independent Baseline Function- Mobility Independent Baseline Function- Gait Walk >1 hr Baseline Function- Recreation/Hobbies Bikes miles Baseline Function- Other No difficulty with dressing Current Functional Impairments (Reported) Functional Limitations- ADL's Difficulty with putting on shoes Functional Limitations- Mobility/Gait Limited 1 hr max with gait; stand 1/2 hr before painful; painful sit>stand Functional Limitations- Recreation/ Does not participate due to Hobbies fear of pain Functional Limitations- Other sleeps on R side with pillow between knees for 6-7 hrs before wakes due to pain PT-OP-C Subjective Start: 06/27/23 13:45 Freq: Status: Active Protocol: Document 10/07/23 08:57 NM (Rec: 10/07/23 09:46 NM [id number]) OP-PT Subjective Patient Comments Patient Comments Pt reports back to normal. Did a 38 mile bike ride yesterday , soreness resolved overnight. He reports that his pain levels have been significantly better. He is planning on going back to the gym over the winter PT-OP-E Functional Tests Start: 06/27/23 13:45 Freq: Status: Active Protocol: Document 06/27/23 13:46 NM (Rec: 06/27/23 17:22 NM [id number]) Functional Tests 30 Second Sit to Stand Test Score 14 Comments reports no pain with transition to stand, increased flexed trunk PT-OP-F Manual Assessment Start: 06/27/23 13:45 Freq: Status: Active Protocol: Document 06/27/23 13:46 NM (Rec: 06/27/23 17:22 NM [id number]) Manual Assessments Soft Tissue Assessment Soft Tissue Mobility Assessment Bilateral hamstring tightness. Increased tone of lumbar paraspinals, L>R Joint Mobility Assessment Joint Mobility Assessment Hypomobility of thoracic and lumbar spine with P-A springing of spinous processes . Decreased hip ER/IR bilaterally in sitting and supine. Unable to placed L ankle over R knee (e.g. to put on shoes) PT-OP-G Mobility & Gait Start: 06/27/23 13:45 Freq: Status: Active Protocol: Document 06/27/23 13:46 NM (Rec: 06/27/23 17:22 NM [id number]) OP Gait Assessment Gait Gait Assistance Required: Independent Distance (Feet) 200 Assistive Devices Assistive Device None Gait Deviations General Gait Pattern Antalgic,Flexed Trunk,Wide Based Gait Factors Limiting Gait Function Factors Limiting Gait Function Decreased Sensation,Decreased Strength,Poor Balance Comments Gait Comments Decreased trunk rotation with gait, B external rotation of feet, flexed trunk posture; wider FREDY PT-OP-H Neuro Start: 06/27/23 13:45 Freq: Status: Active Protocol: Document 06/27/23 13:46 NM (Rec: 06/27/23 17:22 NM [id number]) Sensation Evaluation Gross Sensation Gross Sensation Left LE Impaired,Right LE Impaired Comments Summary Comments Decreased light touch sensation along dorsal and plantar surfaces of feet; other BLE dermatomes intact PT-OP-J Posture/Palpation/Skin Start: 06/27/23 13:45 Freq: Status: Active Protocol: Document 06/27/23 13:46 NM (Rec: 06/27/23 17:22 NM [id number]) Posture Evaluation Position Standing Evaluation View posterior, lateral Head/C-Spine Posture Forward Head L-Spine Posture Fixed Scoliosis on (R) Shoulder Posture (L) Rounded,(R) Rounded,(L) Elevated Arm Posture (L) Internally Rotated,(R) Internally Rotated Pelvis Posture Anteriorly Tilted,(R) Iliac Crest Superior Weight Distribution Balanced Hip Posture (L) Externally Rotated,(R) Externally Rotated Knee Posture (L) Genu Varus,(R) Genu Varus Patellar Posture (L) Superior,(R) Superior Ankle/Foot Posture (L) Neutral,(R) Neutral Comments Posture Comments Dextroscoliosis lumbar spine Palpation Assessment Location lumbar spine Palpation Location paraspinals, glutes, QL, L1-L5 spinous processes, PSIS, SIJ Palpation Findings Soft Tissue Tightness Palpation Details Tenderness along B PSIS, L>R. No tenderness along spinous or transverse processes of L spine. No tenderness of B SIJ. No tenderness of glutes, hip external rotators, greater trochanter, proximal hamstrings. Increased soft tissue tightness of lumbar paraspinals, QL PT-OP-K Range of Motion Start: 06/27/23 13:45 Freq: Status: Active Protocol: Document 10/07/23 08:57 NM (Rec: 10/07/23 09:46 NM [id number]) Lumbar Spine Range of Motion Lumbar Spine Active Percentage Testing Position Standing Flexion 90 Extension 50 Rotation Left 3 Rotation Right 3 Lateral Flexion Left 80 Lateral Flexion Right 80 ROM Limitations Soft Tissue Tightness,Pain Comments IE: 50% flex and ext, 3 cm B rot, 50% B lateral flex; Reports minimal pain/pulling with spinal extension. No pain with rotation or flexion. Demos decreased hamstring length with flexion (to knees) and lateral flexion (to mid lateral thigh) 07/22/23: 75% flex, 100% ext, 50% B lateral flex, B 5 cm rotation; tightness only in HS with flex, low back with SB but no pain 08/25/23: slight pull with L lateral flexion, 75% flex, 75% SB bilateral 10/07/23: 6 from floor with flexion; all pain free Hip Goniometric Range of Motion Hip right Flexion w/Knee Flexed 110 Straight Leg Raise 80 Internal Rotation 25 External Rotation 30 Comments IE: 15 deg IR, 25 deg ER; Hamstring length: 140 deg 07/22/23: IR 22 deg, ER 30 deg 08/25/23: IR 20 deg, ER 30 deg; HS: 150 deg 10/07/23: HS length 150, R IR 25 deg left Testing Position Supine Flexion w/Knee Flexed 112 Straight Leg Raise 70 Internal Rotation 35 External Rotation 30 Comments Ie: 20 deg IR, 15 deg ER; Hamstring length: 150 deg; pt reports feels more restricted 07/22/23: IR 30 deg, ER 25 deg 08/25/23: IR 35, ER 30 deg; HS: 150 deg 10/07/23: HS length 150, 30 deg ER PT-OP-L Special Tests Start: 06/27/23 13:45 Freq: Status: Active Protocol: Document 06/27/23 13:46 NM (Rec: 06/27/23 17:22 NM [id number]) Special Tests Lumbar Spine Special Tests SIJ Thigh thrust Test Results - SIJ Anterior gapping Test Results - Distraction Test Results + Comments reports relief Pierre/Quadrant Test Results - Comments no local or referred pain with 3D testing Straight Leg Raise Test Results + Slump Test Results + Comments improved with head ext Hip Special Tests NGA Test Results - Comments Unable to perform fully due to ROM limitations on LLE FADIR Test Results - PT-OP-M Strength Start: 06/27/23 13:45 Freq: Status: Active Protocol: Document 10/07/23 08:57 NM (Rec: 10/07/23 09:46 NM [id number]) Trunk Strength Trunk Manual Muscle Testing Testing Position Sitting Flexion 5 Normal Extension 4 Good Rotation Left 5 Normal Rotation Right 5 Normal Lateral Flexion Left 5 Normal Lateral Flexion Right 5 Normal Comments No pain with resisted testing. Decreased ability to stabilize against frontal plane resistance 07/22/23: 5/5 for all, no pain 10/07/23: 5/5, pain free Hip Strength Hip Manual Muscle Testing Right Flexion (L2) 4+ Good+ Extension (S1) 4+ Good+ Abduction 4+ Good+ Adduction 4+ Good+ External Rotation 4+ Good+ Internal Rotation 4+ Good+ Comments pain free Left Flexion (L2) 4+ Good+ Extension (S1) 4+ Good+ Abduction 4+ Good+ Adduction 4+ Good+ External Rotation 4+ Good+ Internal Rotation 4+ Good+ Comments pain free PT-OP-Q Treatments Start: 06/27/23 13:45 Freq: Status: Active Protocol: Document 10/07/23 08:57 NM (Rec: 10/07/23 09:46 NM [id number]) Therapeutic Exercises Supine Exercises piriformis stretch Supine Exercise Name piriformis from hooklying and figure 4 Side bilateral Reps/Minutes 1x60 ea Prone Exercises pigeon Prone Exercise Name for increased hip mobility Side bilateral Equipment Used plinth, no trunk flexion Reps/Minutes 1x30 Comments reports good stretch, limited hip mobility Standing Exercises LAQ Side bilateral Resistance lvl 4 tb (blue) Reps/Minutes 2x10 with 3 hold Comments Pt ed to perform post hamstring stretch sit to stand Standing Exercise Name chair taps Side bilateral Resistance 10# db Reps/Minutes 3x10 Comments good hip hinge lift Standing Exercise Name staggered stance RDL Side bilateral Resistance 8# db in opp hand Reps/Minutes 2x10 Comments cued for greater hip hinge; demos good core brace Other Exercises quadruped Other Exercise Name bird dog Side bilateral Reps/Minutes 1x10, alternating Comments pain free; good form Manual Therapy Treatment Soft Tissue Mobilization right hamstring Body Location performed bilaterally Mobilization Type Rolling Intensity/Depth Moderate Body Position Supine Comments prior to stretch, pain free, improved ROM and less tightness post soft tissue mobilization Manual Techniques stretching Type contract-relax Body Location B HS Body Position Supine Reps/Duration 2x60 Comments Decreased HS tightness post contract-relax PT-OP-T Assessment and Plan Start: 06/27/23 13:45 Freq: Status: Active Protocol: Document 10/07/23 08:57 NM (Rec: 10/07/23 09:46 NM [id number]) Physical Therapy Assessment Goals Six Impairment core stabilization Impairment bird dogs: 1x10 non- alternating modified plank: 8 seconds Public Health Assistant Goal (LTG) Pt will be able to perform either 15 second modified plank or 10 alternating bird dogs without back pain or compensation in order to demonstrate improvement in core stabilization during lifting and body mechanics 10/07/23: able to perform 10 alternating bird dogs with good form, requires increased time LTG Duration 10 weeks GOAL ADDED; MET Five Impairment activity tolerance Impairment Pt w/o HEP Short Term Goal (STG) Pt will report compliance with HEP 2-3/wk in order to demonstrate independence and management of symptoms for return to activity 07/14/23: compliant 2-3x/wk STG Duration 4 weeks MET Snf Goal (LTG) Pt will report compliance with HEP 3x/wk to demonstrate ability to participate in independent exercise for maintenance program after discharge from PT 08/25/23: 3x/wk LTG Duration 8 weeks MET Four Impairment AROM, ADLs Impairment unable to put on L shoe Public Health Assistant Goal (LTG) Pt will report that he is able to put on his L shoe in sitting without compensation or reports of low back pain in order to demonstrate improved ability to participate in dressing ADLs 07/14/23: Pt reports that he is able to put on his L shoe ( both shoes in sitting using hip/knee flexion) without pain or difficulty LTG Duration 8 weeks MET Three Impairment hip IR Impairment R hip IR 15 deg Short Term Goal (STG) Pt will increase R hip IR to at least 20 deg in order to demonstrate improved hip mobility 07/22/23: 22 deg; 30 deg ER 08/16/23: R 20 deg IR, L hip 30 deg IR STG Duration 4 weeks MET Public Health Assistant Goal (LTG) Pt will increase R hip IR to at least 22 deg in order to demonstrate improved hip mobility 08/16/23: 20 deg R hip IR 08/25/23: 20 deg IR 10/07/23: 25 deg LTG Duration 8 weeks MET Two Impairment hip ER Impairment L ER AROM 15 deg Short Term Goal (STG) Pt will improve L ER AROM to at least 20 deg in order to demonstrate increased hip mobility to put on his shoes 07/22/23: 25 deg ER, 30 deg IR STG Duration 4 weeks MET Public Health Assistant Goal (LTG) Pt will improve L ER AROM to at least 25 deg in order to demonstrate increased hip mobility to put on his shoes 07/22/23: 25 deg ER, 30 deg IR 10/07/23: 30 deg ER LTG Duration 8 weeks MET One Impairment hamstring length Impairment R hamstring length 140 deg, L hamstring length 150 deg Short Term Goal (STG) Pt will improve B hamstring length by at least 5 deg ea for improved TKE during gait and to improve overall spinal/ hip mobility for improved activity tolerance 07/22/23: 140 deg L, 160 deg R STG Duration 4 weeks PARTIALLY MET Snf Goal (LTG) Pt will improve B hamstring length by at least 10 deg ea for improved TKE during gait and to improve overall spinal/ hip mobility for improved activity tolerance 08/12/23: 160 deg B LTG Duration 8 weeks MET Progress Towards Goals Progress Towards Goals Goals Met Progress Comments All goals met Assessment Summary Assessment Pt tolerated session well. Session emphasis on improving hip and trunk flexibility, reviewing HEP for maintenance program. Pt demonstrates improved B hip ROM and hamstring length. Continues to have good tolerance to therapeutic exercise. Reviewed body mechanics, especially hip hinge and core bracing for pt lifting. After initial cueing, pt able to demonstrate good form with hip hinge. Additional benefit of hamstring lengthening. Physical Therapy Plan Frequency and Duration Frequency of Treatment 1x/Week Duration of treatment (weeks) 10 Plan of Care Start Date 08/25/23 Plan of Care End Date 11/04/23 Therapeutic Interventions Therapeutic Interventions Aquatic Therapy,Balance Training,Coordination Training ,Gait Training,Home Exercise Program,Joint Mobilizations, Manual Therapy,Neuromuscular Re-education,Orthotic/ Prosthetic Management,Patient/ Caregiver Education,Self-Care/ Home Management,Sensory Integration,Soft Tissue Mobilization,Taping, Therapeutic Activities, Therapeutic Exercises Modalities Biofeedback,Cold Pack/Ice Massage,Electric Stimulation, Hot Packs,Traction- Mechanical ,Ultrasound,Vasopneumatic Devices Other Therapeutic Interventions Manual traction, self traction Discharge Physical Therapy Discharge Reasons Patient Request Discharge Comments Goals met. Pt requesting discharge from PT as he has less pain and wants to perform maintenance program on own with HEP. PT in agreement Next Visit Focus/Plan Next Visit Plan Discharge from PT
== END 2023-10-10 13:57 | disposition home or self-care (01) ==
LOC: PHYS 09:00
PROVIDERS: Family Provider Family Medicine; PCP Family Medicine; Referring Provider Neurological Surgery; Visit Provider Neurological Surgery
DX: M54.50 Low back pain, unspecified (principal); R53.1 Weakness; R26.9 Unspecified abnormalities of gait and mobility
CPT/HCPCS: 97110; 97140; 97161; 97530; 97535

== ENCOUNTER → 2023-12-21 08:52 | Outpatient (CLI) | payer MEDICARE, OTHER, SELFPAY ==
[2023-12-21 11:33] LABS: Influenza A - CEPHEID Flu A NEGATIVE (NEGATIVE); Influenza B - CEPHEID Flu B NEGATIVE (NEGATIVE); Respiratory Syncytial Virus Negative (Negative)
[2023-12-21 11:41] LABS: COVID-19 CEPHEID 4-PLEX PCR POSITIVE (Negative)
== END ==
PROVIDERS: Family Provider Family Medicine; PCP Family Medicine; Referring Provider Nurse Practitioner Family; Visit Provider Nurse Practitioner Family
DX: R05.1 Acute cough (principal)
CPT/HCPCS: 0241U

== ENCOUNTER → 2024-09-08 14:01 | Outpatient (CLI) | payer MEDICARE, OTHER, SELFPAY ==
--- NOTE | 2024-09-08 14:02 | DI.MRI.S_ITS ---
PROCEDURE: MR SHOULDER RT WO CON INDICATIONS: TENDINOPATHY OF RT ROTATOR CUFF / ARTHRITIS TECHNIQUE: Noncontrast oblique coronal T2 fast spin echo with fat saturation, oblique sagittal T1 spin echo and T2 fast spin echo with fat saturation, axial T1 spin echo and T2 fast spin echo with fat saturation through the shoulder. COMPARISON: None. FINDINGS: Image quality: Excellent. Rotator cuff: In the supraspinatus, there is low-grade articular sided tear at the critical zone of the posterior fiber for. There is low-grade, bursal sided tear at the footprint of the junction supraspinatus and infraspinatus (08:10). The teres minor is unremarkable. Low-grade interstitial tear of the subscapularis. No muscle edema or fatty atrophy. 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 Type 1 acromion. No os acromiale. Mild subacromial/subdeltoid bursitis. Mild subchondral cystic changes at the posterior greater tuberosity, reactive. No acute fracture. Complete chondral denudation of the glenoid. Capsule and soft tissues: Tear of the posterior superior labrum. Tear of the anterior superior labrum, with 1.0 cm paralabral cyst. No acute fracture or dislocation. The extra-articular, and the intra-articular biceps tendon are unremarkable. Trace glenohumeral effusion. No intra-articular body. IMPRESSION: 1. Low-grade tear of the supraspinatus and at the junction of the supraspinatus and infraspinatus. 2. Low-grade tear of the subscapularis. 3. 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 4. Labral tear with 1.0 cm paralabral cyst. Dictated by: Sonam Connell M.D. on 09/10/2024 at 10:21 Approved by: Sonam Connell M.D. on 09/10/2024 at 10:32
== END ==
PROVIDERS: Family Provider Family Medicine; PCP Family Medicine; Referring Provider Orthopaedic Surgery; Visit Provider Orthopaedic Surgery
DX: M75.111 Incomplete rotator cuff tear or rupture of right shoulder, not specified as traumatic (principal); S43.431A Superior glenoid labrum lesion of right shoulder, initial encounter; M19.011 Primary osteoarthritis, right shoulder; M67.911 Unspecified disorder of synovium and tendon, right shoulder; M94.211 Chondromalacia, right shoulder
CPT/HCPCS: 73221